=== PATIENT | male | born 1960 | race Caucasian/White ===

== ENCOUNTER 2017-07-04 05:46 | Day surgery (SDC) | payer MEDICARE, MEDICAID ==
[2017-07-01 10:26] VITALS: BMI 21.2
[2017-07-04] MEDS ORDERED: Bupivacaine HCl 0.5%/Epinephrine 1:200,000/PF 30 ml Vial ONE ×2 (06:32→11:59)
[2017-07-04] MEDS ORDERED: Lidocaine 2% 10 ML INJ ONE (06:32)
[2017-07-04] MEDS ORDERED: Bupivacaine/Epinephrine 0.25% 30 ML VIAL ONE (06:32)
[2017-07-04] MEDS ORDERED: Heparin 5,000 UNITS/ML VIAL ONE ×2 (06:32)
[2017-07-04] MEDS ORDERED: Protamine Sulfate 50 MG/5 ML VIAL ONE (06:32)
[2017-07-04] MEDS ORDERED: Fentanyl 100 MCG/2 ML VIAL ONE (06:34)
[2017-07-04] MEDS ORDERED: Midazolam HCl 2 mg/2 ml Vial ONE (06:34)
[2017-07-04] MEDS ORDERED: CEFAZOLIN/Water 2 GM/20 ML SYRINGE ONE (07:11)
--- NOTE | 2017-07-04 10:00 | OP ---
DATE OF PROCEDURE: 07/04/2017 PREOPERATIVE DIAGNOSES: Chronic kidney disease, approaching need for dialysis, diabetic callus left foot, TMA amputation stump. POSTOPERATIVE DIAGNOSES: Chronic kidney disease, approaching need for dialysis, diabetic callus left foot, TMA amputation stump. PROCEDURES: Left wrist Sweetie fistula, 4 mm coronary dilator outflow ligation of collaterals. Debri ash of diabetic callus left transmetatarsal amputation stump (skin, subcutaneous tissue, excisiona l resectional 10 blade scalpel). SURGEON: Gopi Galvin M.D. ANESTHESIA: Regional. TIVA. PROCEDURE: The patient was taken to the operating room where under left upper extremity regional ane sthesia, left upper extremity was prepared with ChloraPrep, draped in routine fashion. Incision made longitudinally in the skin and subcutaneous tissue and the left wrist between the cephalic vein and radial artery and cephalic vein and radial artery dissected free, divided branch between 4-0 silk tie s and clips. The cephalic vein on the hand side ligated with 3-0 silk tie and divided, spatulated an d interrogated with coronary dilators, passing coronary dilators from a 2 mm to a 4 mm coronary dilat or out the cephalic vein outflow. Radial artery dissected free, clamped proximally and distally afte r administering heparin 6000 units intravenously and adequate circulation time, longitudinal arteriot charlene made sharply and elongated with the Tovar scissors and cephalic vein likewise spatulated and end vein to side radial artery anastomosis created with continuous suture of 6-0 Prolene. At completion of the anastomosis, vascular clamps were released. There was excellent flow in the fistula. There w as a large branch that was divided between 4-0 silk ties and clips. Two small incisions was made mor e in the proximal forearm and collateral veins visible dissected free and clipped. Skin incisions ap proximated by approximating subcutaneous tissues with 3-0 Monocryl, skin with subdermal 4-0 Monocryl and DermaGlue applied. There was excellent Doppler signal in the cephalic vein outflow of the end of the procedure. The patient given 25 mg of protamine intravenously. Good hemostasis noted. Attention was then turned to the left foot, transmetatarsal amputation stump and the area was prepare d with alcohol pad and diabetic callus sharply excised with a 10 blade resectional excisional diabeti c callus skin. Underlying tissue was healthy. The patient tolerated the procedure well. Sterile dr esschasity applied.
[2017-07-04] MEDS ORDERED: Heparin 10,000 UNITS/ 10 ML VIAL ONE (14:01)
== END 2017-07-04 10:12 | disposition home or self-care (01) ==
LOC: SDC 05:46
PROVIDERS: ATTEND Specialist
PROC: 0JBR0ZZ Excision of Left Foot Subcutaneous Tissue and Fascia, Open Approach (ICD-10-PCS; principal; 2017-07-04)
PROC: 031C0ZF Bypass Left Radial Artery to Lower Arm Vein, Open Approach (ICD-10-PCS; 2017-07-04)
DX: I12.0 Hypertensive chronic kidney disease with stage 5 chronic kidney disease or end stage renal disease (principal); E11.22 Type 2 diabetes mellitus with diabetic chronic kidney disease; N18.6 End stage renal disease; E03.9 Hypothyroidism, unspecified; E11.628 Type 2 diabetes mellitus with other skin complications; E78.1 Pure hyperglyceridemia; Z91.19 Patient's noncompliance with other medical treatment and regimen; Z89.422 Acquired absence of other left toe(s); Z79.4 Long term (current) use of insulin; Z79.899 Other long term (current) drug therapy; Z98.890 Other specified postprocedural states
CPT/HCPCS: J0670; J1644; J2250; J2720; J3010

== ENCOUNTER 2017-09-14 15:10 | Inpatient (IN) | payer MEDICARE, MEDICAID ==
[2017-09-14 15:55] LABS: #Eosinphils 0.2 thou/uL (0.0-0.7); #Monocytes 0.5 thou/uL (0.11-0.59); %Basophils 0.4 % (0.0-1.0); %Eosinophils 3.1 % (0.0-10.0); %Neutrophils 77.5 % (42.0-75.0); Hemoglobin 8.6 g/dL (14.0-18.0); Mean Corpuscular HGB CONC 35.8 g/dL (32.0-36.0); Mean Corpuscular Hemoglobin 29.1 pg (27.0-31.0); Mean Corpuscular Volume 81.2 fL (78.0-98.0); Mean Platelet Volume 6.8 fL (7.4-10.4); Platelet Count 265 thou/uL (130-400); RBC Distribution Width 13.8 % (11.5-14.5); Red Blood Cell (RBC) Count 2.96 mill/uL (4.70-6.10); White Blood Cell (WBC) Count 7.7 thou/uL (4.8-10.8)
[2017-09-14 16:06] LABS: ALT (SGPT) 8 U/L (8-55); AST (SGOT) 8 U/L (5-34); Albumin 3.1 g/dL (3.5-5.0); Alkaline Phosphatase 51 U/L (40-150); Anion Gap 16 mmol/L (10-20); BUN (Urea Nitrogen) 62 mg/dL (8.4-25.7); Bilirubin, Total 0.3 mg/dL (0.2-1.2); Calc. Creatinine Clearance 0 mL/min (70-130); Calcium 7.5 mg/dL (7.8-10.44); Carbon Dioxide 18 mmol/L (22-29); Chloride 103 mmol/L (98-107); Estimated GFR-MDRD 8; Globulin 3.3 g/dL (2.4-3.5); Glucose 272 mg/dL (70-105); Potassium 5.3 mmol/L (3.5-5.1); Protein, Total 6.4 g/dL (6.0-8.3); Sodium 132 mmol/L (136-145)
[2017-09-14 16:11] LABS: CKMB 1.7 ng/mL (0-6.6); Troponin I 0.078 ng/mL (< 0.028)
[2017-09-14 16:14] LABS: Bilirubin Negative (Negative); Blood, Urine Small (Negative); Clarity CLEAR (Clear); Glucose, Urine (Dipstick) 500 mg/dL (Negative); Leukocyte Negative (Negative); Nitrite Negative (Negative); Protein, Urine (Dipstick) > or equal to 300 mg/dL (Neg-Trace); Specific Gravity, Urine 1.025 (1.002-1.036); Urobilinogen 0.2 mg/dL (0.2-1.0)
[2017-09-14 16:16] LABS: Bacteria/HPF None Seen HPF (None Seen); RBC/HPF 0-3 HPF (0-3)
[2017-09-14 16:18] LABS: Pathc Cast-AUWi Flag 2.61 (0-2.49)
[2017-09-14 16:25] LABS: Renal Epithelial None Seen HPF (0-3); Transitional Epithelial NONE SEEN HPF (0-3)
[2017-09-14 16:26] LABS: Hyaline Casts/LPF NONE SEEN LPF (0-3 Hyaline); Manual Microscopic Reviewed? No Path Casts Seen
[2017-09-14 16:37] LABS: Magnesium 1.6 mg/dL (1.6-2.6); Phosphorus 6.1 mg/dL (2.3-4.7)
--- NOTE | 2017-09-14 16:48 | RAD ---
PORTABLE CHEST: 09/14/17 HISTORY: Mental status change. Lungs are clear. Heart and mediastinum unremarkable. IMPRESSION: No acute findings. POS: [facility]
[2017-09-14] MEDS ORDERED: Ondansetron HCl/PF 4 MG/2 ML Vial IVP PRN (18:37)
[2017-09-14] MEDS ORDERED: Ondansetron ODT 4 MG TAB SL PRN (18:37)
[2017-09-14] MEDS ORDERED: Dextrose 5% in Water 1,000 ML IV PRN (19:19)
[2017-09-14] MEDS ORDERED: Dextrose 50% Abboject 50 ML SYRINGE SLOW IVP PRN (19:19)
[2017-09-14] MEDS ORDERED: HumaLOG 300 UNITS/3 ML VIAL SC PRN ×2 (19:19→19:58)
[2017-09-14] MEDS ORDERED: Acetaminophen 325 MG TAB PO PRN (19:19)
[2017-09-14 19:25] LABS: Troponin I 0.102 ng/mL (< 0.028)
--- NOTE | 2017-09-14 19:41 | PDOC.FPRHP ---
- History of Present Illness Chief Complaint: AMS, weakness History of Present Illness: Mr. Tafoya presented to the ED via ambulance with complaint of confusion/AMS and weakness. He reports his pulse was 28 in the ambulance. ER records say his pulse was 40-50s in the ambulance with pulse in the 60s recorded in the ER. 2.5 weeks ago patient had heat exhaustion and since then has "been going downhill" and has felt very weak. He could not walk or sit up well because he felt off balance. He vision has been foggy but it is normal at time of interview. Girlfriend reports he was confused, with slurred speech, and not thinking straight today. Has felt lightheaded but denies LOC or falls. Denies SOB, fever , chest pain. He has a R BKA and typically ambulates with cane but has had to use walker, or be pushed around while seated on the walker today. Pt has left foot wound which home health cares for. L arm fistula place and pt was schedule to meet with nephro this Tuesday to discuss if starting HD would be appropriate. FULL CODE: discussed with pt and girlfriend ED Course: basic labs, CXR, EKG - Allergies/Adverse Reactions Allergies Allergy/AdvReac Type Severity Reaction Status Date / Time No Known Allergies Allergy Verified 07/01/17 10:13 - Home Medications Medication Instructions Recorded Confirmed Type Insulin Detemir 100 UNITS/ML 60 units SC BID 03/20/14 09/14/17 History [Levemir] Gabapentin [Gabapentin] 50 mg PO BID 05/24/16 09/14/17 History Levothyroxine Sodium [Synthroid] 112 mcg PO DAILY 05/24/16 09/14/17 History Simvastatin [Zocor] 40 mg PO DAILY 05/24/16 09/14/17 History Aspirin [Aspir-Low] 1 tab PO DAILY 06/15/16 09/14/17 History Amlodipine Besylate [amLODIPine 1 tab PO DAILY 07/01/17 09/14/17 History Besylate] Carvedilol [Carvedilol] 1 tab PO DAILY 07/01/17 09/14/17 History Ferrous Gluconate [Fergon] 1 tab PO DAILY 07/01/17 09/14/17 History Gemfibrozil [Lopid] 1 tab PO BID 07/01/17 09/14/17 History - History PMHx:T2DM on insulin, HTN, PVD (Right BKA), anemia, ESRD, hypothyroid, HLD PSHx: R BKA, Left metatarsal amputations, L arm fistula (08/31/17) FHx:father-ESRD Social:Lives with girlfriend of 15 years. Smoker, 1 pack/week for 2-3 yrs, trying to quit. Denies alcohol or drug use. Has home health services for wound care and medications. - Review of Systems General: reports: fatigue. denies: fever/chills, weight/appetite/sleep changes , night sweats Eyes: reports: vision changes (foggy vision at times). denies: eye pain ENT: denies: nasal congestion, rhinorrhea Respiratory: denies: cough, shortness of breath Cardiovascular: denies: chest pain, palpitation, edema Gastrointestinal: denies: nausea, vomiting, diarrhea, constipation, abdominal pain Genitourinary: denies: dysuria, polyuria Skin: denies: rashes, lesions Musculoskeletal: denies: tenderness, swelling Neurological: reports: numbness (tingling in fingers), weakness. denies: syncope, seizure Psychological: denies: anxiety, depression - Vital signs BP: [165/86] HR: [65] RR: [17] Tmax: [98.4] Pox: [98]% on [RA] Wt: [70] - Physical Exam Constitutional: NAD, awake, alert and oriented HEENT: normocephalic and atraumatic, PERRLA, EOMI, MMM, oropharynx clear Neck: supple, trachea midline, no LAD, no thyromegaly Heart: RRR, normal S1/S2, pulses present, no edema Lungs: CTAB, good air movement, no rales/rhonchi, no wheezing Abdomen: soft, non-tender, bowel sounds present, no masses/distention Musculoskeletal: normal structure, normal tone, other (R BKA (healed), L foot wound) Neurological: no focal deficit, CN II-XII intact, other (UE and LE muscle strength 5/5) Skin: no rash/lesions, capillary refill <2 seconds Heme/Lymphatic: no unusual bruising or bleeding, no purpura Psychiatric: normal mood and affect, good judgment and insight FMR H&P: Results - Labs Result Diagrams: 09/14/17 15:33 09/14/17 21:38 Lab results: WBC 7.7 thou/uL (4.8-10.8) 09/14/17 15:33 Hgb 8.6 g/dL (14.0-18.0) L 09/14/17 15:33 Hct 24.1 % (42.0-52.0) L 09/14/17 15:33 MCV 81.2 fL (78.0-98.0) 09/14/17 15:33 Plt Count 265 thou/uL (130-400) 09/14/17 15:33 Neutrophils % 77.5 % (42.0-75.0) H 09/14/17 15:33 Sodium 132 mmol/L (136-145) L 09/14/17 15:33 Potassium 5.3 mmol/L (3.5-5.1) H 09/14/17 15:33 Chloride 103 mmol/L (98-107) 09/14/17 15:33 Carbon Dioxide 18 mmol/L (22-29) L 09/14/17 15:33 BUN 62 mg/dL (8.4-25.7) H 09/14/17 15:33 Creatinine 6.75 mg/dL (0.6-1.3) H 09/14/17 15:33 Glucose 272 mg/dL (70-105) H 09/14/17 15:33 Calcium 7.5 mg/dL (7.8-10.44) L 09/14/17 15:33 Total Bilirubin 0.3 mg/dL (0.2-1.2) 09/14/17 15:33 AST 8 U/L (5-34) 09/14/17 15:33 ALT 8 U/L (8-55) 09/14/17 15:33 Alkaline Phosphatase 51 U/L (40-150) 09/14/17 15:33 Creatine Kinase 108 U/L (30-200) 09/14/17 15:33 CK-MB (CK-2) 1.7 ng/mL (0-6.6) 09/14/17 15:33 Serum Total Protein 6.4 g/dL (6.0-8.3) 09/14/17 15:33 Albumin 3.1 g/dL (3.5-5.0) L 09/14/17 15:33 Lipase 50 U/L (8-78) 09/14/17 15:33 Urine Ketones Negative mg/dL (Negative) 09/14/17 16:00 Urine Blood Small (Negative) H 09/14/17 16:00 Urine Nitrite Negative (Negative) 09/14/17 16:00 Ur Leukocyte Esterase Negative (Negative) 09/14/17 16:00 Urine RBC 0-3 HPF (0-3) 09/14/17 16:00 Urine WBC 4-6 HPF (0-3) H 09/14/17 16:00 Ur Squamous Epith Cells 7-10 HPF (0-3) H 09/14/17 16:00 Urine Bacteria None Seen HPF (None Seen) 09/14/17 16:00 - EKG Interpretation EKG: NSR, rate 67, prolonged QT, normal pr interval, peaked T waves in precordial leads, QRS normal width - Radiology Interpretation Chest x-ray Status: report reviewed by me (No acute changes) FMR H&P: A/P - Plan ESRD -could be cause for patient's symptoms and metabolic abnormalities -recs from Dr. Holcomb on management -monitor BMP -Already has L arm fistula Bradycardia -pulse in the 60s since evaluated in ED -considering stable pulse, no current intervention needed. Ddx includes medications, hypothyroid, sick sinus syndrome -monitor on tele AMS/confusion -considering ESRD status could consider uremic encephalopathy -currently A&Ox3 Hyperkalemia -monitor BMP --> next draw at 21:30 -elevated T waves but QRS interval normal, currently on telemetry -appreciate Dr. Holcomb recs T2DM -accuchecks qachs -moderate sliding scale -lantus 60U BID -ordered A1c Elevated troponins -0.078 -considering ESRD status and no chest pain or other associated cardiac symptoms , no current concern for acute etiology. will continue to trend until decrease seen. Anemia, normocytic -likely due to kidney disease/ low EPO -will monitor CBC for change Hypothyroidism -takes synthroid at home -TSH 8.7, will order T4 Hypocalcemia -most likely d/t ESRD HLD -continue home simvastatin, gemfibrozil HTN -continue home carvedilol and amlodipine -will monitor pulse FMR H&P: Upper Level - Pertinent history 57 yr old male with history of ESRD not yet on dialysis presents for progressive fatigue, confusion, generalized weakness. His girlfriend is present and states this morning he didn't even know who he was. He could barely sit up or walk. Reports no LOC or falls. He notes this has been occurring for about 2 weeks since having "heat exhaustion." He reports feeling like he is in a fog. They called EMS and girlfriend notes they found his HR to be 28. He denies chest pain or headache. He states he is feeling better now and is able to interact for entirety of interview and answers questions appropriately. He denies fever. - Pertinent findings Gen: NAD, A & O to person, place, time, and situation, pleasant, interactive Cardiac: RRR, NO m/r/g Lungs: CTAB, no wheezes, rhales, rhonchi Abd: normal active BS, nontender to palpation Ext: Right BKA, left metatarsal amputation- left metatarsal callus formed but well healed no evidence for Infection EKG- NSR, rate 67 with peaked T waves in anterior leads. No ST elevation. QT prolonged. No QRS widening. Normal IA interval. - Plan Date/Time: 09/14/171929 I, [Netta Mejia], have evaluated this patient and agree with findings/plan as outlined by internal controls manager resident. Pertinent changes/additions are listed here. 57 yr old male with long standing chronic kidney disease presents for fatigue, AMS, and found to initially be bradycardic by EMS. Symptomatic bradycardia -apparent bradycardia to 28 with EMS although this is by patient history -ER documentation notes HR to 45-60 -HR in 60s in ER and on the floor -continue to monitor on tele -considerable causes include hypothyroidism, beta blockade, sick sinus syndrome , ESRD , hyperkalemia AMS consider Uremic Encephalopathy vs bradycardia although now resolved -currently A & O x 4 -pending consult by Dr. Romero, but likely a candidate to initiate dialysis -fistula in place for HD -monitor on tele Hyperkalemia -K+ 5.3 -Recheck at 2129 -Reported sinus bradycardia but now NSR with slight prolonged QT, cont to monitor on tele -pending consult by Dr. Romero and may require dialysis Hyperphosphatemia -needs phosphate binder -initiate tums -other mgmt. per nephro Chronic Normocytic anemia -likely 2/2 to CKD/DM -monitor H/H Hypothyroidism -mildly elevated TSH on current therapy -check free T4 -once dose is clarified, would recommend increasing levothyroxine DM II with hyperglycemia -continue levemir (lantus in hospital) -mod sliding scale insulin -check hgb A1C Elevated troponin -trend, although likely obscured by ESRD -no recent or current chest pain -No ST changes on EKG HLD -cont home meds HTN -cont home meds -cont coreg for now and monitor on tele but may need to consider holding or DC if thought to be cause of bradycardia Hypocalcemia -likely 2/2 CKD -initiate tums -monitor DVT ppx- TID heparin Diet- renal
[2017-09-14] MEDS ORDERED: Sodium Bicarbonate Tab 325 MG TAB PO SCH (21:00)
[2017-09-14] MEDS ORDERED: Heparin 5,000 UNITS/ML VIAL SC SCH (21:00)
[2017-09-14] MEDS: Insulin Glargine 60 UNITS in Pre-Filled Syringe 1 EACH SC SCH (21:41)
[2017-09-14 22:09] LABS: Anion Gap 15 mmol/L (10-20); BUN (Urea Nitrogen) 64 mg/dL (8.4-25.7); Calc. Creatinine Clearance 12 mL/min (70-130); Calcium 7.1 mg/dL (7.8-10.44); Carbon Dioxide 20 mmol/L (22-29); Chloride 102 mmol/L (98-107); Estimated GFR-MDRD 8; Glucose 250 mg/dL (70-105); Potassium 4.6 mmol/L (3.5-5.1); Sodium 132 mmol/L (136-145)
[2017-09-14 22:10] LABS: Troponin I 0.083 ng/mL (< 0.028)
--- NOTE | 2017-09-14 22:47 | PDOC.EVN ---
Event Note - Event Note Event Note: Pt seen and examined by me on 09/14/2017 @20:10. History, exam, assessment and plan reviewed and agree with resident's documentation. Briefly this is a 57 yo male with h/o type 2 DM, HTN, PVD, ESRD, and hypothyroidism who presented with an episode of generalized weakness. Significant other states that he appeared confused, was slurring his speech and was unable to stand up and walk. Denies any chest pain, SOB, N/V/D, URI symptoms, cough. Was diagnosed with heat exhaustion 2 weeks ago and states that he has not felt like himself since them. Does report occasional dizziness. Per EMS/ER records- his heart rate was noted to be in the 40-50s. PMH/PSH/Meds/All reviewed and agree with resident's documentation. Afebrile P 65 BP 165/87 RR 16 98% on RA. Exam repeated by me and agree with resident's findings. Labs: H/H=8.6/24.1, Na= 132, K+= 5.3, BUN/Cr = 62/6.75m Gluc= 272 EKG= NSR, prolonged QT. A/P: 1) AMS/Near symcope -Differential including dysrthymia, uremia, hypothyroidism - Admit to telemetry - Cardiac monitors 2) ESRD - pt had fistula placed 2 weeks ago - Nephrology consulted; await recommendations 3) Mild hyperkalemia - recheck lytes later tonight 4) Hypothyroidism - will check T3 and T4 - adjust meds as indicated
--- NOTE | 2017-09-15 00:25 | CON ---
DATE OF CONSULTATION: 09/14/2017 REASON FOR CONSULTATION: Stage 5 chronic kidney disease and hyperkalemia. HISTORY OF PRESENT ILLNESS: This is a very pleasant 57-year-old gentleman who presented to the [facility] with weakness and not feeling well. The patient has some altered mentation. His pulse was in th e 30s to 40s. After hydration, the patient was awake, alert, and cleared. The patient denies chest pain, orthopnea or PND. The patient has a wound on his left leg. The patient denies any nausea, vom iting or chest pain. PAST MEDICAL HISTORY: Significant for diabetes mellitus, hypertension, peripheral vascular disease, right BKA, anemia, AV fistula. SOCIAL HISTORY: No alcohol or drugs. FAMILY HISTORY: Negative for ESRD. ALLERGIES: Reviewed. HOME MEDICATIONS: List reviewed. REVIEW OF SYSTEMS: A 15-point review of systems was performed and negative except for positives note d above. GENERAL: Weakness- HEAD: Headache- NECK: No swelling or lumps. NOSE: No epistaxis or discharge. EYES: No diplopia or pain. RESPIRATORY: Dyspnea- CARDIOVASCULAR: Chest pain- GASTROINTESTINAL: Nausea- /INJECTION MOLDING MACHINE SETTER: Hematuria- MUSCULOSKELETAL: No joint pain. NEUROPSYCHIATIC SYSTEMS: No suicidal ideation. No ideation. SKIN: Denies any rash or ulcer. CONSTITUTIONAL: No fever or chills. PHYSICAL EXAMINATION: GENERAL: Patient is awake, alert. VITAL SIGNS: Afebrile, pulse 65, breathing 16, blood pressure 162/79. HEAD/NECK: Normocephalic. Atraumatic. EYES: EOMI. No deformity. EARS: Clear. No ulcers. NOSE: Intact. No lesions. MOUTH: Clear. No discharge. THROAT: Clear. No exudate. LUNGS: Clear. No crackles. CARDIAC: S1, S2. No rub. ABDOMEN: Benign. BS+. GENITALIA/RECTUM: Praasd absent. BACK/EXTREMITIES: Edema 0+ Ulcer- NEUROLOGICAL: Alert and motor intact. SKIN: Rash- Bruise- LYMPHATICS: Edema- Ulcer- LABORATORY DATA: Hemoglobin 9.2, potassium 5.3, bicarbonate ____. ASSESSMENT AND RECOMMENDATIONS: 1. Acute kidney injury with chronic kidney disease, most likely due to progressive chronic kidney di sease. We will follow the patient's renal function closely. If the renal function does not improve, we will consider renal replacement therapy. Creatinine has increased from 4.4-6.75. 2. Hyperkalemia. Give Kayexalate and bicarbonate due to metabolic acidosis. Start bicarbonate.
[2017-09-15 04:54] LABS: #Eosinphils 0.3 thou/uL (0.0-0.7); #Lymphocytes 1.8 thou/uL (1.20-3.40); #Monocytes 0.6 thou/uL (0.11-0.59); #Neutrophils 4.1 thou/uL (1.40-6.50); %Basophils 0.6 % (0.0-1.0); %Eosinophils 3.7 % (0.0-10.0); %Lymphocytes 26.7 % (21.0-51.0); %Monocytes 8.4 % (0.0-10.0); %Neutrophils 60.6 % (42.0-75.0); Hemoglobin 9.1 g/dL (14.0-18.0); Mean Corpuscular HGB CONC 34.1 g/dL (32.0-36.0); Mean Corpuscular Hemoglobin 27.8 pg (27.0-31.0); Mean Corpuscular Volume 81.5 fL (78.0-98.0); Mean Platelet Volume 6.9 fL (7.4-10.4); Platelet Count 252 thou/uL (130-400); Red Blood Cell (RBC) Count 3.27 mill/uL (4.70-6.10); White Blood Cell (WBC) Count 6.8 thou/uL (4.8-10.8)
[2017-09-15 05:00] LABS: Hemoglobin A1c 8.1 % (4.0-6.0)
[2017-09-15 05:14] LABS: Anion Gap 17 mmol/L (10-20); BUN (Urea Nitrogen) 63 mg/dL (8.4-25.7); Calc. Creatinine Clearance 12 mL/min (70-130); Calcium 7.6 mg/dL (7.8-10.44); Carbon Dioxide 21 mmol/L (22-29); Chloride 103 mmol/L (98-107); Estimated GFR-MDRD 9; Glucose 91 mg/dL (70-105); Potassium 3.8 mmol/L (3.5-5.1); Sodium 137 mmol/L (136-145)
--- NOTE | 2017-09-15 05:42 | PDOC.FM ---
- Subjective Subjective: Pt reports feeling much better today, he has no new complaints, denies chest pain, SOB, weakness. Significant other is at bedside and reports improvement in mental status to 7/10. - Objective Vital Signs & Weight: Vital Signs (12 hours) Temp Pulse Resp BP BP Pulse Ox 09/15/17 04:00 98.7 F 69 18 169/83 H 99 09/14/17 20:11 97.2 F L 65 18 100 09/14/17 18:40 97.2 F L 65 18 163/79 H 100 Weight Weight 69.655 kg Result Diagrams: 09/15/17 03:54 09/15/17 03:54 <Carrington Paniagua - Last Filed: 09/15/17 09:15> - Objective Vital Signs & Weight: Vital Signs (12 hours) Temp Pulse Resp BP Pulse Ox 09/15/17 11:26 97.8 F 73 14 186/81 H 98 09/15/17 08:45 70 09/15/17 08:00 98 F 70 16 99 09/15/17 07:26 98 F 70 16 196/92 H 99 Weight Admit Weight 69.655 kg Weight 69.989 kg I&O: 09/14/17 09/15/17 09/16/17 06:59 06:59 06:59 Intake Total 480 Output Total 900 Balance -420 Result Diagrams: 09/15/17 03:54 09/15/17 03:54 <Kindra Manjarrez - Last Filed: 09/15/17 17:06> Phys Exam - Physical Examination Constitutional: NAD Respiratory: no wheezing, no rales, no rhonchi, wheezing present, clear to auscultation bilateral Cardiovascular: RRR, no significant murmur, no rub Gastrointestinal: soft, non-tender, positive bowel sounds Musculoskeletal: no edema, pulses present Psychiatric: normal affect, A&O x 3 <Carrington Paniagua - Last Filed: 09/15/17 09:15> Dx/Plan (1) Encephalopathy Code(s): G93.40 - ENCEPHALOPATHY, UNSPECIFIED Status: Acute (2) End stage chronic kidney disease Code(s): N18.6 - END STAGE RENAL DISEASE Status: Acute (3) Bradycardia Code(s): R00.1 - BRADYCARDIA, UNSPECIFIED Status: Acute (4) Hyperkalemia Code(s): E87.5 - HYPERKALEMIA Status: Acute (5) Hypothyroid Code(s): E03.9 - HYPOTHYROIDISM, UNSPECIFIED Status: Acute - Plan Plan: Encephalopathy -considering ESRD status could consider uremic encephalopathy -BUN 63 -currently A&Ox3 ESRD -could be cause for patient's symptoms and metabolic abnormalities -recs from Dr. Holcomb on management -monitor BMP -Already has L arm fistula Bradycardia -pulse in the 60s since evaluated in ED -considering stable pulse, no current intervention needed. Ddx includes medications, hypothyroid, sick sinus syndrome -monitor on tele Hyperkalemia -monitor BMP --> last draw: 3.8 -elevated T waves but QRS interval normal, currently on telemetry -appreciate Dr. Holcomb recs T2DM -accuchecks qachs -moderate sliding scale -lantus 60U BID -ordered A1c Elevated troponins -0.078 -considering ESRD status and no chest pain or other associated cardiac symptoms , no current concern for acute etiology. will continue to trend until decrease seen. Anemia, normocytic -likely due to kidney disease/ low EPO -will monitor CBC for change Hypothyroidism -takes synthroid at home, increased to 125 mcg -TSH 8.7, T4 .64 Hypocalcemia -most likely d/t ESRD HLD -continue home simvastatin, gemfibrozil HTN -continue home carvedilol and amlodipine -will monitor pulse Dispo: Pt is improving overnight, continue to monitor CMP, follow up with Dr. Romero on starting dialysis <Carrington Paniagua - Last Filed: 09/15/17 09:15> Attending Addendum - Attending Addendum Date/Time: 09/15/17 1101 I personally evaluated the patient and discussed the management with Dr. Paniagua. I agree with the History, Examination, Assessment and Plan documented above with any addition or exceptions noted below. The patient has been seen by Dr. Romero who recommends starting bicarb. He is ok with the patient going home and will have f/u with Dr. Romero as an outpt in 1 week to likely start dialysis. <Kindra Manjarrez - Last Filed: 09/15/17 17:06>
[2017-09-15] MEDS ORDERED: Levothyroxine Sodium 112 MCG TAB PO SCH (06:00)
[2017-09-15] MEDS ORDERED: Levothyroxine Sodium 125 MCG TAB PO SCH (06:00)
[2017-09-15 06:14] LABS: CKMB 1.3 ng/mL (0-6.6); Troponin I 0.074 ng/mL (< 0.028)
[2017-09-15] MEDS ORDERED: Gemfibrozil 600 MG TAB PO SCH (07:30)
[2017-09-15 08:38] VITALS: BMI 27.3
[2017-09-15] MEDS: Insulin Glargine 60 UNITS in Pre-Filled Syringe 1 EACH SC SCH (08:45)
[2017-09-15] MEDS ORDERED: Amlodipine 10 MG TAB PO SCH (09:00)
[2017-09-15] MEDS ORDERED: Ferrous Gluconate 324 MG TAB PO SCH (09:00)
[2017-09-15] MEDS ORDERED: Aspirin 81 mg Enteric Coated Tablet PO SCH (09:00)
[2017-09-15] MEDS ORDERED: Carvedilol 6.25 MG TAB PO SCH (09:00)
[2017-09-15] MEDS ORDERED: Atorvastatin Calcium 20 MG TAB PO SCH ×2 (09:00→21:00)
[2017-09-15 11:26] VITALS: BP 186/81; TEMP 97.8
--- NOTE | 2017-09-15 11:54 | PRG ---
DATE OF SERVICE: 09/15/2017 SUBJECTIVE: This 57-year-old male being seen for stage 5 chronic kidney disease. The patient denies any nausea, vomiting or chest pain. The patient is ____. PHYSICAL EXAMINATION: GENERAL: Patient is awake, alert. VITAL SIGNS: Afebrile, pulse 73, breathing 16, blood pressure 196/93. OBJECTIVE: See above. Awake, alert, in no acute distress. GENERAL APPEARANCE AND MENTAL STATUS: Fair. HEAD/NECK: Normocephalic. Atraumatic. EYES: EOMI. No deformity. EARS: Clear. No ulcers. NOSE: Intact. No lesions. MOUTH: Clear. No discharge. THROAT: Clear. No exudate. LUNGS: Clear. No crackles. CARDIAC: S1, S2. No rub. ABDOMEN: Benign. BS+. GENITALIA/RECTUM: Prasad absent. BACK/EXTREMITIES: Edema 0+ Ulcer- NEUROLOGICAL: Alert and motor intact. SKIN: Rash- Bruise- LYMPHATICS: Edema- Ulcer- LABORATORY: Hemoglobin 9.1, potassium is 3.8, bicarbonate 31. ASSESSMENT AND RECOMMENDATIONS: 1. Stage 5 chronic kidney disease, no urgent indication for dialysis. 2. Hypertension, stable. 3. Anemia, stable. 4. Medication based on glomerular filtration rate are appropriate. We will let the patient's AV fis pacheco mature, once fistula matures we can start dialysis in 3 weeks.
[2017-09-15] MEDS ORDERED: Sodium Bicarbonate Tab 325 MG TAB PO SCH (15:00)
--- NOTE | 2017-09-16 00:46 | DIS-2 ---
DATE OF ADMISSION: 09/14/2017 DATE OF DISCHARGE: 09/15/2017 RESIDENT: Carrington Paniagua DO ADMITTING ATTENDING: Augusta Escobedo MD DISCHARGE ATTENDING: Kindra Manjarrez MD CONSULTATIONS: Dr. Romero (Nephrology). PROCEDURES: None. PRIMARY DIAGNOSIS: Encephalopathy. SECONDARY DIAGNOSES: 1. End-stage renal disease. 2. Bradycardia. 3. Hyperkalemia. 4. Type 2 diabetes mellitus. 5. Elevated troponins. 6. Anemia, normocytic. 7. Hypothyroidism. 8. Hypocalcemia. 9. Hyperlipidemia. 10. Hypertension. DISCHARGE MEDICATIONS: Insulin detemir 100 units per mL SC b.i.d., simvastatin 10 mg tab p.o. daily, gabapentin 100 mg capsule p.o. b.i.d., levothyroxine sodium 75 mcg tab p.o. daily, aspirin 81 mg tab p.o. daily, carvedilol 6.25 mg tab p.o. daily, gemfibrozil 600 mg tab p.o. b.i.d., amlodipine besyla te 10 mg tab p.o. daily, ferrous gluconate 324 mg tab p.o. daily, sodium bicarbonate 325 mg tab p.o. t.i.d. HISTORY OF PRESENT ILLNESS AND HOSPITAL COURSE: Mr. Tafoya presented to the ED via ambulance with complaint of confusions, altered mental status, and weakness. His reported pulse in the ambulance wa s 28. During his stay in the ER, he has been in the 60s for his pulse. He has been having weakness and confusion for the past week since he had a heat stroke or heat exhaustion as described by his gir lfriend 1 week ago. She reports that his consciousness has been worse. He has had weakness and he h as felt lightheaded. He has a past medical history significant for a right BKA and uses a walker for that. In the ER, he received basic labs, a chest x-ray, and EKG; all showing nothing significant fo r cardiac or neurological deficits. His labs did confirm his elevated BUN, which is related to his e nd-stage renal disease. During his hospital stay, we continued to follow his labs for his end-stage renal disease and consulted Dr. Romero who has been seeing him in clinic. Dr. Romero recommended that we add sodium bicarbonate to his medication regimen and discharge him to follow up closely in clinic wi Dr. Romero. DISPOSITION: Stable. DISCHARGE INSTRUCTIONS: 1. Location: Home. 2. Diet: Renal and diabetic. 3. Activity: As tolerated. 4. Followup: He is to follow up in the clinic in his primary care; nurse practitioner [facility] clinic in 7 days, and in Dr. Romero's Nephrology clinic in 7 days.
== END 2017-09-15 14:15 | disposition home or self-care (01) | DRG 70 ==
LOC: ERS 15:10 → 2NO 18:24
PROVIDERS: ADMIT Family Medicine; ATTEND Family Medicine
DX: G93.40 Encephalopathy, unspecified (principal); N18.6 End stage renal disease; I12.0 Hypertensive chronic kidney disease with stage 5 chronic kidney disease or end stage renal disease; N17.9 Acute kidney failure, unspecified; E87.2 Acidosis; E11.22 Type 2 diabetes mellitus with diabetic chronic kidney disease; R00.1 Bradycardia, unspecified; E87.5 Hyperkalemia; D64.9 Anemia, unspecified; E03.9 Hypothyroidism, unspecified; E83.51 Hypocalcemia; E78.5 Hyperlipidemia, unspecified; Z89.511 Acquired absence of right leg below knee; E11.51 Type 2 diabetes mellitus with diabetic peripheral angiopathy without gangrene
CPT/HCPCS: 36415; 36416; 71045; 80048; 80053; 81003; 81015; 82553; 83036; 83690; 83735; 84100; 84439; 84443; 84484; 85025; 93005

== ENCOUNTER 2017-09-15 19:46 | Inpatient (IN) | payer MEDICARE, MEDICAID ==
[2017-09-15 21:11] LABS: #Eosinphils 0.2 thou/uL (0.0-0.7); #Lymphocytes 1.1 thou/uL (1.20-3.40); #Monocytes 0.5 thou/uL (0.11-0.59); #Neutrophils 6.9 thou/uL (1.40-6.50); %Basophils 0.4 % (0.0-1.0); %Eosinophils 2.8 % (0.0-10.0); %Lymphocytes 12.2 % (21.0-51.0); %Monocytes 5.5 % (0.0-10.0); %Neutrophils 79.2 % (42.0-75.0); Hemoglobin 10.6 g/dL (14.0-18.0); Mean Corpuscular HGB CONC 36.7 g/dL (32.0-36.0); Mean Corpuscular Hemoglobin 29.9 pg (27.0-31.0); Mean Corpuscular Volume 81.4 fL (78.0-98.0); Mean Platelet Volume 7.1 fL (7.4-10.4); Platelet Count 289 thou/uL (130-400); RBC Distribution Width 13.9 % (11.5-14.5); Red Blood Cell (RBC) Count 3.55 mill/uL (4.70-6.10); White Blood Cell (WBC) Count 8.7 thou/uL (4.8-10.8)
[2017-09-15 21:23] LABS: ALT (SGPT) 10 U/L (8-55); AST (SGOT) 15 U/L (5-34); Albumin 3.3 g/dL (3.5-5.0); Alkaline Phosphatase 64 U/L (40-150); Anion Gap 18 mmol/L (10-20); BUN (Urea Nitrogen) 66 mg/dL (8.4-25.7); Bilirubin, Total 0.3 mg/dL (0.2-1.2); Calc. Creatinine Clearance 0 mL/min (70-130); Calcium 7.5 mg/dL (7.8-10.44); Carbon Dioxide 20 mmol/L (22-29); Chloride 101 mmol/L (98-107); Estimated GFR-MDRD 9; Globulin 4.1 g/dL (2.4-3.5); Glucose 146 mg/dL (70-105); Potassium 3.9 mmol/L (3.5-5.1); Protein, Total 7.4 g/dL (6.0-8.3); Sodium 135 mmol/L (136-145)
[2017-09-15 21:28] LABS: Bilirubin Negative (Negative); Blood, Urine Trace (Negative); Clarity CLEAR (Clear); Glucose, Urine (Dipstick) 250 mg/dL (Negative); Leukocyte Negative (Negative); Nitrite Negative (Negative); Protein, Urine (Dipstick) > or equal to 300 mg/dL (Neg-Trace); Specific Gravity, Urine 1.016 (1.002-1.036); Urobilinogen 0.2 mg/dL (0.2-1.0); pH, Urine 6.5 (5.0-9.0)
[2017-09-15 21:30] LABS: Bacteria/HPF None Seen HPF (None Seen); Hyaline Casts/LPF 0-3 HYALINE CAST LPF (0-3 Hyaline); Pathc Cast-AUWi Flag 0.43 (0-2.49); RBC/HPF None Seen HPF (0-3); WBC/HPF 0-3 HPF (0-3)
--- NOTE | 2017-09-15 21:56 | CT ---
CT HEAD WITHOUT CONTRAST: 09/15/17 Multiple axial tomograms obtained through the head without IV enhancement. INDICATIONS: Mental status change. There are no comparison studies. FINDINGS: Ventricles have normal size and position. There are moderate chronic ischemic white matter changes. There is evidence of numerous lacunar infarcts seen in the basal ganglia regions and deep white matte r of both cerebral hemispheres. These are more numerous in the left cerebral hemisphere. Several of t hese focal lacunar infarcts are age indeterminate. There is a subtle area of low attenuation in the l eft basal ganglia near the posterior limb of the internal capsule and adjacent to the lateral margin of the thalamus which could represent an acute or subacute lacunar infarct. Likewise, there are some lucencies in the deep white matter which could be acute or subacute. There is no evidence of acute cortical infarct. There is no evidence of mass or hemorrhage. IMPRESSION: Prominent chronic ischemic changes for patient's age. There are evidence of old lacunar infarcts as d escribed above. Some of these are age indeterminate. If there are new neurologic deficits, recommend MRI of brain to assess for restricted diffusion. POS: [facility]
[2017-09-15 23:33] LABS: Troponin I 0.065 ng/mL (< 0.028)
[2017-09-15] MEDS ORDERED: Dextrose 5% in Water 1,000 ML IV PRN (23:38)
[2017-09-15] MEDS ORDERED: Dextrose 50% Abboject 50 ML SYRINGE SLOW IVP PRN (23:38)
--- NOTE | 2017-09-15 23:38 | PDOC.FPRHP ---
- History of Present Illness Chief Complaint: AMS History of Present Illness: Mr. Tafoya is a 57 y/o M that presented to the ER this evening with AMS, confusion, weakness. He was discharged earlier today. He arrived home at 14:00 and was resting in bed. At 17:00 he woke up in sweats. He remembers feeling confused at that time and then remembers his house being full of neighbors and EMS. Girlfriend reports that he was confused, did not know where he was, had "bad speech", and was cold, shaky, and sweaty. He was weak and unable to walk. She said this episode was the same thing that happened resulting in his previous admission. ED Course: CT brain, labs, blood culture, UA, EKG, Rectal temp 94.1, bearhugger - Allergies/Adverse Reactions Allergies Allergy/AdvReac Type Severity Reaction Status Date / Time No Known Allergies Allergy Verified 09/16/17 00:30 - Home Medications Medication Instructions Recorded Confirmed Type Insulin Detemir 100 UNITS/ML 60 units SC BID 03/20/14 09/16/17 History [Levemir] Levothyroxine Sodium [Synthroid] 112 mcg PO DAILY 05/24/16 09/16/17 History Simvastatin [Zocor] 40 mg PO DAILY 05/24/16 09/16/17 History Aspirin [Aspir-Low] 1 tab PO DAILY 06/15/16 09/16/17 History Amlodipine Besylate [amLODIPine 1 tab PO DAILY 07/01/17 09/16/17 History Besylate] Carvedilol 1 tab PO DAILY 07/01/17 09/16/17 History Ferrous Gluconate [Fergon] 1 tab PO DAILY 07/01/17 09/16/17 History Gemfibrozil [Lopid] 1 tab PO BID 07/01/17 09/16/17 History Sodium Bicarbonate [Bicarbonate, 325 mg PO TID #21 tab 09/15/17 09/16/17 Rx Sodium] - History PMHx:T2DM on insulin, HTN, PVD (Right BKA), anemia, ESRD, hypothyroid, HLD PSHx: R BKA, Left metatarsal amputations, L arm fistula (08/31/17) FHx:father-ESRD Social:Lives with girlfriend of 15 years. Smoker, 1 pack/week for 2-3 yrs, trying to quit. Denies alcohol or drug use. Has home health services for wound care and medications. - Review of Systems General: reports: fatigue. denies: fever/chills Eyes: denies: eye pain, vision changes ENT: denies: nasal congestion, rhinorrhea Respiratory: denies: cough, shortness of breath Cardiovascular: denies: chest pain, palpitation, edema Gastrointestinal: denies: nausea, vomiting, diarrhea, constipation, abdominal pain Genitourinary: denies: incontinence, dysuria Skin: denies: rashes, lesions Musculoskeletal: denies: tenderness, swelling Neurological: reports: numbness (tingling in hands, chronic), weakness. denies : syncope Psychological: denies: anxiety, depression - Vital signs BP: [155/73] HR: [64] RR: [16] Tmax: [97.5] Pox: [97]% on [RA] Wt: [71 kg] - Physical Exam Constitutional: NAD, awake, alert and oriented (A&Ox3) HEENT: normocephalic and atraumatic, PERRLA, EOMI, conjunctiva clear, grossly normal vision, TM's clear and intact, grossly normal hearing, MMM, oropharynx clear Neck: supple, trachea midline Heart: RRR, normal S1/S2, no murmurs/rubs/gallops, no edema Lungs: CTAB, no respiratory distress, no rales/rhonchi, no wheezing Abdomen: soft, non-tender, bowel sounds present Musculoskeletal: normal structure, normal tone, other (R BKA, L foot metatarsal amputation, minor wound) Neurological: no focal deficit, CN II-XII intact, normal sensation, other (5/5 muscle strength UE and LE bilaterally, normal heel to thomas,) Skin: no rash/lesions, capillary refill <2 seconds Heme/Lymphatic: no unusual bruising or bleeding Psychiatric: normal mood and affect, good judgment and insight FMR H&P: Results - Labs Result Diagrams: 09/16/17 04:34 09/16/17 04:33 Lab results: WBC 8.7 thou/uL (4.8-10.8) 09/15/17 20:52 Hgb 10.6 g/dL (14.0-18.0) L 09/15/17 20:52 Hct 28.9 % (42.0-52.0) L 09/15/17 20:52 MCV 81.4 fL (78.0-98.0) 09/15/17 20:52 Plt Count 289 thou/uL (130-400) 09/15/17 20:52 Neutrophils % 79.2 % (42.0-75.0) H 09/15/17 20:52 Sodium 135 mmol/L (136-145) L 09/15/17 20:52 Potassium 3.9 mmol/L (3.5-5.1) 09/15/17 20:52 Chloride 101 mmol/L (98-107) 09/15/17 20:52 Carbon Dioxide 20 mmol/L (22-29) L 09/15/17 20:52 BUN 66 mg/dL (8.4-25.7) H 09/15/17 20:52 Creatinine 6.33 mg/dL (0.6-1.3) H 09/15/17 20:52 Glucose 146 mg/dL (70-105) H 09/15/17 20:52 Calcium 7.5 mg/dL (7.8-10.44) L 09/15/17 20:52 Total Bilirubin 0.3 mg/dL (0.2-1.2) 09/15/17 20:52 AST 15 U/L (5-34) 09/15/17 20:52 ALT 10 U/L (8-55) 09/15/17 20:52 Alkaline Phosphatase 64 U/L (40-150) 09/15/17 20:52 Serum Total Protein 7.4 g/dL (6.0-8.3) 09/15/17 20:52 Albumin 3.3 g/dL (3.5-5.0) L 09/15/17 20:52 Urine Ketones Negative mg/dL (Negative) 09/15/17 21:15 Urine Blood Trace (Negative) H 09/15/17 21:15 Urine Nitrite Negative (Negative) 09/15/17 21:15 Ur Leukocyte Esterase Negative (Negative) 09/15/17 21:15 Urine RBC None Seen HPF (0-3) 09/15/17 21:15 Urine WBC 0-3 HPF (0-3) 09/15/17 21:15 Ur Squamous Epith Cells 4-6 HPF (0-3) H 09/15/17 21:15 Urine Bacteria None Seen HPF (None Seen) 09/15/17 21:15 - EKG Interpretation EKG: sinus bradycardia (pulse 57), elevated T waves, no acute changes - Radiology Interpretation CT scan - head Status: report reviewed by me (Chronic ischemic changes, old lacunar infarcts, some may be age indeterminant) FMR H&P: A/P - Problem List (1) Encephalopathy Current Visit: Yes Status: Acute Code(s): G93.40 - ENCEPHALOPATHY, UNSPECIFIED (2) Hypothermia Current Visit: Yes Status: Acute Code(s): T68.XXXA - HYPOTHERMIA, INITIAL ENCOUNTER (3) End stage chronic kidney disease Current Visit: Yes Status: Acute Code(s): N18.6 - END STAGE RENAL DISEASE (4) Diabetes mellitus type 2 Current Visit: Yes Status: Chronic Code(s): E11.9 - TYPE 2 DIABETES MELLITUS WITHOUT COMPLICATIONS (5) Hypothyroid Current Visit: Yes Status: Acute Code(s): E03.9 - HYPOTHYROIDISM, UNSPECIFIED (6) S/P transmetatarsal amputation of foot Current Visit: Yes Status: Acute Code(s): Z89.439 - ACQUIRED ABSENCE OF UNSPECIFIED FOOT (7) Amputation of right lower extremity below knee Current Visit: Yes Status: Acute Code(s): Z89.511 - ACQUIRED ABSENCE OF RIGHT LEG BELOW KNEE - Plan 57 y/o M presenting with AMS and hypothermia. Encephalopathy -Ddx includes, metabolic cause 2/2 ESRD, TIA, hypoglycemia, cardiac causes -concern for possible TIA, however CT brain showed only chronic changes. Will continue to monitor to rule out. Could consider MRI in am. -BUN 66 -currently A&Ox3 Hypothermia, resolved -rectal temp 94.1 in ER -had bearhugger and temp increased to 97.5 in ER ESRD -Dr. Holcomb's recs from earlier today include starting HD in 3 weeks, once L AV fistula has matured -monitor BMP. stable compared to previous admit -continue sodium bicarb Bradycardia -history of possible symptomatic bradycardia -pulse in the 60s since arrival to the ER -considering stable pulse, no current intervention needed -monitor on tele -consider cardiology consult in am T2DM -accuchecks qachs -moderate sliding scale -lantus 60U BID -last A1c 09/15 of 8.1 Anemia, normocytic -stable, likely due to kidney disease/ low EPO -will monitor CBC for change Hypothyroidism -takes synthroid at home, increased 09/15 to 125 mcg -TSH 8.7, T4 .64 Hypocalcemia -most likely d/t ESRD HLD -continue home simvastatin, gemfibrozil HTN -continue home carvedilol and amlodipine -will monitor pulse FMR H&P: Upper Level - Pertinent history 57 yr old male with history of ESRD not yet on dialysis presents for altered mental status. He was discharged from the hospital earlier today after workup for bradycardia. He was not found to be bradycardic during his hospitalization. His girlfriend is present and states after they got home this afternoon, he took a nap. She woke him around 5:30 pm and he was confused, having difficulty speaking, and had a left facial droop. He also was sweating at that time. This resolved in route to the ER per girlfriend. This episode is nearly the same as what resulted in his last hospitalization. Girlfriend states he has had intermittent episodes of confusion for 2 weeks. These last 2 seems to be more prominent. At this time, he is back to baseline. He denies chest pain, shortness of breath, headache, abdominal pain. He is nearing need for HD but has recently been placed on oral sodium bicarb with hope of allowing his fistula to mature. - Pertinent findings Gen: NAD, A & O to person, place, time, and situation, pleasant, interactive Cardiac: RRR, NO m/r/g Lungs: CTAB, no wheezes, rhales, rhonchi Abd: normal active BS, nontender to palpation Ext: Right BKA, left metatarsal amputation- left metatarsal callus formed but well healed no evidence for Infection Neuro: cranial nerves 2-12 intact, bue/ble 5/5, no dydiadikokineshia, normal finger to nose, normal sensation EKG: sinus bradycardia, no ST changes - Plan Date/Time: 09/15/17 [id number] I, [Netta Mejia], have evaluated this patient and agree with findings/plan as outlined by it intern resident. Pertinent changes/additions are listed here. Encephalopathy likley 2/2 metabolic derangements however Diff Dx includes TIA, bradycardia, SSS -now improved -CT head with chronic ischemic changes -MRI brain in AM -electrolytes at baseline -monitor on stroke and continuous heart monitoring -no sign of infection (afebrile although initially low temp, no WBC) hypothermia -initial rectal temp 94.1, resolved with bearhugger in ER -no tachycardia, no WBC, no tachypnea -cont to monitor Bradycardia highly suspect sick sinus syndrome but cannot exclude metabolic causes related to ESRD vs hypothyroidism -continuous heart monitor -recommend cardiology vs EP consult -may consider ECHO Chronic normocytic anemia -stable -likely 2/2 CKD/DM -monitor H/H hypothyroidism -recently elevated TSH with low T4 -Synthroid increased to 125 mcg DM II -cont home levemir -mod sliding scale insulin HLD -cont home meds HTN -Cont home meds DVT ppx- tid Heparin Diet- renal and Consistent carb Attending Addendum - Attending Addendum Date/Time: 09/16/17 2023 I personally evaluated the patient and discussed the management with Dr. Melgar. I agree with the History, Examination, Assessment and Plan documented above with any addition or exceptions noted below. The patient was admitted after an episode of altered mental status and sweating. Per girlfriend, he had slurred speech and heart rate was slow. He felt better by the time he arrived to the ER. He was placed in obs for possible stroke work-up. MRI will be ordered. Monitor pulse on telemetry. Pt with ESRD not yet on dialysis. Creatinine is minimally improved.
[2017-09-15] MEDS ORDERED: Ondansetron HCl/PF 4 MG/2 ML Vial IVP PRN (23:46)
[2017-09-15] MEDS ORDERED: Acetaminophen 325 MG TAB PO PRN (23:46)
[2017-09-15] MEDS ORDERED: Ondansetron ODT 4 MG TAB SL PRN (23:46)
[2017-09-16 00:29] VITALS: BMI 18.8
[2017-09-16 02:14] LABS: Troponin I 0.048 ng/mL (< 0.028)
[2017-09-16 05:11] LABS: #Eosinphils 0.3 thou/uL (0.0-0.7); #Lymphocytes 1.6 thou/uL (1.20-3.40); #Monocytes 0.5 thou/uL (0.11-0.59); #Neutrophils 4.3 thou/uL (1.40-6.50); %Basophils 0.5 % (0.0-1.0); %Eosinophils 4.7 % (0.0-10.0); %Lymphocytes 23.8 % (21.0-51.0); %Monocytes 7.7 % (0.0-10.0); %Neutrophils 63.3 % (42.0-75.0); Hemoglobin 9.6 g/dL (14.0-18.0); Mean Corpuscular HGB CONC 35.9 g/dL (32.0-36.0); Mean Corpuscular Hemoglobin 28.9 pg (27.0-31.0); Mean Corpuscular Volume 80.4 fL (78.0-98.0); Mean Platelet Volume 6.9 fL (7.4-10.4); Platelet Count 261 thou/uL (130-400); RBC Distribution Width 13.6 % (11.5-14.5); Red Blood Cell (RBC) Count 3.33 mill/uL (4.70-6.10); White Blood Cell (WBC) Count 6.7 thou/uL (4.8-10.8)
[2017-09-16 05:30] LABS: Anion Gap 16 mmol/L (10-20); BUN (Urea Nitrogen) 65 mg/dL (8.4-25.7); Calc. Creatinine Clearance 13 mL/min (70-130); Calcium 7.7 mg/dL (7.8-10.44); Carbon Dioxide 21 mmol/L (22-29); Chloride 104 mmol/L (98-107); Estimated GFR-MDRD 9; Glucose 100 mg/dL (70-105); Potassium 3.2 mmol/L (3.5-5.1); Sodium 138 mmol/L (136-145)
--- NOTE | 2017-09-16 05:55 | PDOC.FM ---
- Subjective Subjective: Pt reports that he feels well today, no new symptoms overnight. He denies any confusion, chills, or night sweats recently. His girlfriend reports his mental status has improved and has not noticed any focal weakness. - Objective Vital Signs & Weight: Vital Signs (12 hours) Temp Pulse Resp BP Pulse Ox 09/16/17 04:00 97.8 F 69 18 177/86 H 99 09/15/17 23:23 98 F 70 16 160/77 H 97 Weight Weight 68.356 kg I&O: 09/14/17 09/15/17 09/16/17 06:59 06:59 06:59 Intake Total 350 Balance 350 Result Diagrams: 09/16/17 04:34 09/16/17 04:33 <aCrrington Paniagua - Last Filed: 09/16/17 09:10> - Objective Vital Signs & Weight: Vital Signs (12 hours) Temp Pulse Resp BP Pulse Ox 09/16/17 15:48 98.2 F 75 16 161/82 H 97 Result Diagrams: 09/16/17 04:34 09/16/17 04:33 <Kindra Manjarrez - Last Filed: 09/16/17 16:25> Phys Exam - Physical Examination Constitutional: NAD Respiratory: no wheezing, clear to auscultation bilateral Cardiovascular: RRR, no significant murmur, no rub Gastrointestinal: soft, non-tender Musculoskeletal: no edema, pulses present Neurological: non-focal, normal sensation, moves all 4 limbs Psychiatric: normal affect <Carrington Paniagua - Last Filed: 09/16/17 09:10> Dx/Plan (1) Encephalopathy Code(s): G93.40 - ENCEPHALOPATHY, UNSPECIFIED Status: Acute (2) Hypothermia Code(s): T68.XXXA - HYPOTHERMIA, INITIAL ENCOUNTER Status: Acute (3) End stage chronic kidney disease Code(s): N18.6 - END STAGE RENAL DISEASE Status: Acute (4) Bradycardia Code(s): R00.1 - BRADYCARDIA, UNSPECIFIED Status: Acute (5) Hypothyroid Code(s): E03.9 - HYPOTHYROIDISM, UNSPECIFIED Status: Acute (6) Diabetes mellitus type 2 Code(s): E11.9 - TYPE 2 DIABETES MELLITUS WITHOUT COMPLICATIONS Status: Chronic - Plan Plan: 1. Encephalopathy likley 2/2 metabolic derangements however Diff Dx includes TIA , bradycardia, SSS -now improved -CT head with chronic ischemic changes -MRI brain in AM -electrolytes at baseline -monitor on stroke and continuous heart monitoring -no sign of infection (afebrile although initially low temp, no WBC) negative UA -blood cultures pending 2. hypothermia -initial rectal temp 94.1, resolved with bearhugger in ER -no tachycardia, no WBC, no tachypnea -cont to monitor 3. ESRD -Dr. Holcomb's recs from earlier today include starting HD in 3 weeks, once L AV fistula has matured -monitor BMP. stable compared to previous admit -continue sodium bicarb 4. Bradycardia reported at home -monitor on telemetry -HR in the 60s during hospital stay 5. Chronic normocytic anemia -stable -likely 2/2 CKD/DM -monitor H/H 6. hypothyroidism -recently elevated TSH with low T4 -Synthroid increased to 125 mcg 7. DM II -cont home levemir -mod sliding scale insulin 8. HLD -cont home meds 9. HTN -Cont home meds DVT ppx- tid Heparin Diet- renal and Consistent carb Dispo: Patient feels well today, he returned home for a few hours before having symptoms again, MRI today to rule out neurologic cause. Will continue to monitor on tele today <Carrington Paniagua - Last Filed: 09/16/17 09:10> Attending Addendum - Attending Addendum Date/Time: 09/16/17 1651 I personally evaluated the patient and discussed the management with Dr. Paniagua. I agree with the History, Examination, Assessment and Plan documented above with any addition or exceptions noted below. The patient has an MRI this morning and results are pending to check for stroke. MRI showed lacunar infarct. Will consult stroke team and neurology. Change to inpatient status. He has had no episodes of bradycardia in the 20's as reported at home. Will continue to monitor on telemetry. <Kindra Manjarrez - Last Filed: 09/16/17 16:25>
[2017-09-16] MEDS: Levothyroxine Sodium 125 MCG TAB PO SCH (06:36)
[2017-09-16] MEDS: Gemfibrozil 600 MG TAB PO SCH ×2 (06:36→15:30)
[2017-09-16] MEDS ORDERED: Potassium Chloride 20 MEQ TAB PO SCH (07:00)
[2017-09-16] MEDS ORDERED: INSULIN DETEMIR SC SCH (09:00)
[2017-09-16] MEDS ORDERED: Insulin Glargine 60 UNITS in Pre-Filled Syringe 1 EACH SC SCH (09:00)
[2017-09-16] MEDS: Sodium Bicarbonate Tab 325 MG TAB PO SCH ×3 (09:16→21:48)
[2017-09-16] MEDS: Ferrous Gluconate 324 MG TAB PO SCH (09:19)
[2017-09-16] MEDS: Amlodipine 10 MG TAB PO SCH (09:19)
[2017-09-16] MEDS: Carvedilol 6.25 MG TAB PO SCH (09:19)
[2017-09-16] MEDS: Aspirin 81 mg Enteric Coated Tablet PO SCH (09:20)
[2017-09-16] MEDS: Heparin 5,000 UNITS/ML VIAL SC SCH ×3 (09:20→21:48)
--- NOTE | 2017-09-16 11:14 | MRI ---
MRI OF BRAIN WITHOUT IV CONTRAST: Technique: Multiplanar, multisequence MRI images were obtained of the brain. Indications: Mental status change. Encephalopathy. Concern for TIA. Correlation: CT brain 09-15-17 which showed numerous lacunar infarcts, some of which were age indetermi robbin. FINDINGS: There are moderate to severe chronic ischemic white matter changes. FLAIR sequence also shows numerou s lacunar infarcts in the deep white matter and the basal ganglia regions as noted on CT. These are b dorian delineated with MRI. Diffusion images does show a focus of restricted diffusion in the superior left basal ganglia region posteriorly and superiorly through the periventricular region. This is consistent with an acute lacun ar infarct in this area which measures up to 1.0 cm diameter. No other restricted diffusion seen. No mass, edema, or hemorrhage. The intracranial internal carotid arteries, proximal cerebral arteries and basilar arteries show flow voids. Paranasal sinuses and mastoids are clear. IMPRESSION: 1. Evidence of acute lacunar infarct on the left as described above. 2. Moderate chronic ischemic white matter changes with evidence of numerous old lacunar infarcts. POS: PATY
[2017-09-16] MEDS: HumaLOG 300 UNITS/3 ML VIAL SC PRN ×2 (11:21→21:50)
[2017-09-16] MEDS ORDERED: Insulin Glargine 30 UNITS in Pre-Filled Syringe 1 EACH SC SCH (12:39)
[2017-09-16] MEDS ORDERED: Lisinopril 10 MG TAB PO SCH (12:45)
[2017-09-16 13:04] LABS: HBSAB Concentration 0.31 mIU/mL; HBSAg Index 0.21 S/CO (0-0.99); Hep B Core Total Ab Non-Reactive (NonReactive); Hep B Core Total Index 0.03 S/CO (0-0.79); Hep B Surf AB Non-Reactive (NonReactive); Hep B Surf Ag Non-Reactive S/CO (NonReactive); Hep C IgG Ab Non-Reactive (NonReactive); Hep C Index 0.13 S/CO (0-0.79)
--- NOTE | 2017-09-16 14:53 | PDOC.EVN ---
Event Note - Event Note Event Note: Acute 1 cm L lacunar infarct seen on Brain MRI. Neurology and stroke team consulted. Changed to inpatient status for further management.
--- NOTE | 2017-09-16 18:20 | CON ---
DATE OF CONSULTATION: 09/16/2017 CHIEF COMPLAINT: Acute stroke. HISTORY OF PRESENT ILLNESS: The patient and and family members gave me a history. The patient was here and discharged yesterday and he came back to the hospital with acute onset of he felt cold, clammy, disoriented, could not recognize his family members and they could not tell what he was trying to say and in association with that he felt like his stump on the right leg was kind of weak because his prosthesis was dragging for the last couple of days and he also had blood sugar of 88 and bradycardia at that time and by the time EMS arrived per family, total episode lasted about 30-45 minutes per and symptoms completely resolved. The patient's normal blood sugars are running between 140s to 160s and he has had uncontrolled blood glucose and also hypertension. Patient has had a complete resolution of his symptoms. thinks he also might have noticed a facial droop on the left side during these events and they brought him back to the hospital. They are quite concerned that he would be discharged and keep telling me he does not want to go home yet. PREVIOUS MEDICAL HISTORY: Hypothyroidism, hyperlipidemia, and diabetes which is poorly controlled, hypertension and his most recent hemoglobin A1c is 8, but states it has been at 10 or 11 in the past. Previous history of hypertension and renal disease. 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 SOCIAL HISTORY: Lives with his . Nonsmoker, no alcohol. FAMILY HISTORY: Significant for stroke in his father who at age 79. MEDICATIONS AT HOME: He takes carvedilol 6.25 mg 2 per day, ferrous gluconate 325 mg per day, simvastatin 40 mg per day, amlodipine 5 mg 2 per day, levothyroxine 100 mcg per day, and sodium bicarbonate 325 mg per day. REVIEW OF SYSTEMS: PULMONARY: Normal. CARDIAC: Negative for any chest pain or palpitations, but positive for slow heart rate. ENT: Normal. No hearing problems or swallowing problems or vision problems or throat problems. CONSTITUTIONAL: Positive for intermittent mental status changes on and off. MUSCULOSKELETAL: Negative for any muscle pain. DERMATOLOGIC: Negative for any rash. GI: Negative for any nausea, vomiting or abdominal pain. GENITOURINARY: Negative for dysuria or hematuria. NEUROLOGIC: Positive for weakness on the right side with facial droop along with leg weakness on along with altered mental status which lasted 30-45 minutes. ALLERGIES: The patient has no known drug allergies. LABORATORY DATA AND IMAGING DATA: White count 6.7, hemoglobin 9.6, hematocrit 26.8, and platelets 261. Chemistry; sodium 138, potassium 3.2, chloride 104, bicarbonate 21, BUN 65, creatinine 6.18, glucose 68 in the morning at 6:30 in the morning, 194 at 09:30, at 10:58 a.m., it was 231. Troponin I 0.048, alkaline phosphatase 64, ALT 10, AST 15 and hepatitis B negative. Urine positive for glucose and high protein level. His creatinine is 6.18 and BUN 65. MRI of the brain showed a lacunar infarct which is acute in the left basal ganglia region posteriorly and superiorly through the periventricular infarct measuring up to 1 cm diameter. He also has moderate chronic ischemic white matter changes with numerous old lacunar infarcts. PHYSICAL EXAMINATION: VITAL SIGNS: Temperature 98, pulse 68, respiratory rate 16, blood pressure 156/ 83. GENERAL APPEARANCE: The patient is very pleasant. Normal conversation and has right [id number] amputation, left toe amputations. CHEST: Clear vesicular breathing. CARDIOVASCULAR: S1, S2 heard, no murmurs. ABDOMEN: Soft, nontender, no organomegaly noted. Carotids are clear. NEUROLOGICAL: Higher intellectual functions. Normal orientation to time, place , person and appropriate conversation. Cranial nerves: Normal extraocular movements. No facial asymmetry, normal sensation of face bilaterally. Tongue midline, no atrophy noted. Normal elevation of palate. Normal hearing to finger rub bilaterally and normal reaction to pupils and symmetric at 2 mm bilaterally. Motor examination: Bulk normal, tone normal, strength 5/5 in upper extremities and also in lower extremities. Iliopsoas strength was normal on the right leg and left leg iliopsoas, hamstrings and quadriceps were normal. In both upper extremities, deltoid, biceps, triceps, wrist extension and flexion, finger extension and flexion were normal. Deep tendon reflexes were absent throughout. Sensory: Normal touch, pinprick, proprioception, vibration in upper extremities. Normal vibration in lower extremities and normal touch in lower extremities. Cerebellar: Normal [id number]. [id number] cannot be tested. Gait not tested. IMPRESSION: Patient is a 57-year-old man with history of acute event with altered mental status along with him being cold and clammy and he has cold and clammy sensation and no evidence of any seizure-like activity. The patient developed right-sided weakness and all his neurological symptoms were transient and lasted 35-45 minutes per family and usual blood sugars are in the 140s to 160s and yesterday his blood sugar was 88 and his current examination is normal except for prior evidence of below knee amputation on the right leg and toe amputations. Clinical diagnosis is most consistent with acute ischemic event with left lacunar infarct which occurred yesterday and he has high risk factors for stroke including hypercholesterolemia, uncontrolled diabetes and hypertension. At this time, even though he is back to baseline, we will need to complete his workup including cardiac workup. RECOMMENDATIONS: Please perform echocardiogram and ultrasound scan of the carotids and we will keep him on aspirin, but increase the dose 325 mg per day and I will follow up patient with you. Please educate patient about the risk factors for stroke, which I have already discussed risk factors for stroke and he will need further help with diabetes education as well. Please call me if you have any further questions. ROSE
[2017-09-16 20:17] LABS: Cardiac Risk 11.7 (Less than 4.5); Cholesterol 258 mg/dl (< 200 Desired); HDL Cholesterol 22 mg/dL (>60 Neg Risk)
[2017-09-16 20:25] LABS: Triglycerides 1495 mg/dL (Less than 150)
[2017-09-16] MEDS ORDERED: Atorvastatin Calcium 20 MG TAB PO SCH (21:00)
[2017-09-17 05:05] LABS: #Basophils 0.1 thou/uL (0.0-0.2); #Eosinphils 0.3 thou/uL (0.0-0.7); #Lymphocytes 1.9 thou/uL (1.20-3.40); #Monocytes 0.6 thou/uL (0.11-0.59); #Neutrophils 4.1 thou/uL (1.40-6.50); %Basophils 0.7 % (0.0-1.0); %Eosinophils 4.4 % (0.0-10.0); %Lymphocytes 27.2 % (21.0-51.0); %Monocytes 8.6 % (0.0-10.0); Hemoglobin 9.2 g/dL (14.0-18.0); Mean Corpuscular HGB CONC 35.1 g/dL (32.0-36.0); Mean Corpuscular Hemoglobin 28.7 pg (27.0-31.0); Mean Corpuscular Volume 81.6 fL (78.0-98.0); Mean Platelet Volume 7.3 fL (7.4-10.4); Platelet Count 239 thou/uL (130-400); RBC Distribution Width 14.1 % (11.5-14.5); Red Blood Cell (RBC) Count 3.21 mill/uL (4.70-6.10)
[2017-09-17 05:29] LABS: Anion Gap 18 mmol/L (10-20); BUN (Urea Nitrogen) 64 mg/dL (8.4-25.7); Calc. Creatinine Clearance 13 mL/min (70-130); Calcium 7.3 mg/dL (7.8-10.44); Carbon Dioxide 16 mmol/L (22-29); Chloride 105 mmol/L (98-107); Estimated GFR-MDRD 10; Glucose 70 mg/dL (70-105); Potassium 4.1 mmol/L (3.5-5.1); Sodium 135 mmol/L (136-145)
[2017-09-17] MEDS: Levothyroxine Sodium 125 MCG TAB PO SCH (05:48)
--- NOTE | 2017-09-17 06:12 | PDOC.FM ---
- Subjective Subjective: 57 yo male seen this AM. Patient denies any unilateral weakness, AMS, vision changes, headaches, paresthesias, or chest pain. He states that he had a good night overall. No complaints. - Objective Vital Signs & Weight: Vital Signs (12 hours) Temp Pulse Resp BP BP Pulse Ox 09/17/17 03:20 98.1 F 73 20 141/71 H 99 09/16/17 23:51 98.5 F 72 18 139/75 99 09/16/17 20:00 98.4 F 73 20 99 09/16/17 19:50 98.4 F 73 20 155/80 H 99 I&O: 09/15/17 09/16/17 09/17/17 06:59 06:59 06:59 Output Total 400 Balance -400 Result Diagrams: 09/17/17 04:29 09/17/17 04:29 <Jermain Umanzor - Last Filed: 09/17/17 07:42> - Objective Vital Signs & Weight: Vital Signs (12 hours) Temp Pulse Resp BP BP Pulse Ox 09/17/17 08:42 63 131/67 09/17/17 07:52 98.1 F 63 14 131/67 98 09/17/17 03:20 98.1 F 73 20 141/71 H 99 09/16/17 23:51 98.5 F 72 18 139/75 99 I&O: 09/16/17 09/17/17 09/18/17 06:59 06:59 06:59 Intake Total 240 Output Total 400 Balance -400 240 Result Diagrams: 09/17/17 04:29 09/17/17 04:29 <Kindra Manjarrez - Last Filed: 09/17/17 09:58> Phys Exam - Physical Examination Constitutional: NAD HEENT: PERRLA, moist MMs Neck: no nodes Respiratory: no wheezing, clear to auscultation bilateral Cardiovascular: RRR, no significant murmur Gastrointestinal: soft, non-tender, no distention, positive bowel sounds Musculoskeletal: no edema Right BKA and partial amputation of left foot Neurological: non-focal, moves all 4 limbs Lymphatic: no nodes Psychiatric: normal affect, A&O x 3 Skin: no rash <Jermain Umanzor - Last Filed: 09/17/17 07:42> Dx/Plan (1) Lacunar infarction Code(s): I63.9 - CEREBRAL INFARCTION, UNSPECIFIED Status: Acute (2) End stage chronic kidney disease Code(s): N18.6 - END STAGE RENAL DISEASE Status: Acute (3) Diabetes mellitus type 2 Code(s): E11.9 - TYPE 2 DIABETES MELLITUS WITHOUT COMPLICATIONS Status: Chronic (4) Hypothermia Code(s): T68.XXXA - HYPOTHERMIA, INITIAL ENCOUNTER Status: Acute (5) Hypothyroid Code(s): E03.9 - HYPOTHYROIDISM, UNSPECIFIED Status: Acute (6) Bradycardia Code(s): R00.1 - BRADYCARDIA, UNSPECIFIED Status: Acute (7) Chronic anemia Code(s): D64.9 - ANEMIA, UNSPECIFIED Status: Acute (8) Amputation of right lower extremity below knee Code(s): Z89.511 - ACQUIRED ABSENCE OF RIGHT LEG BELOW KNEE Status: Acute (9) HTN (hypertension) Code(s): I10 - ESSENTIAL (PRIMARY) HYPERTENSION Status: Acute (10) HLD (hyperlipidemia) Code(s): E78.5 - HYPERLIPIDEMIA, UNSPECIFIED Status: Acute - Plan Plan: 1. Lacunar infarct - MRI brain shows new infarct - electrolytes at baseline - monitor on stroke and continuous heart monitoring - ECHO ordered - Carotid doppler ordered 2. hypothermia - initial rectal temp 94.1, resolved with bearhugger in ER - no tachycardia, no WBC, no tachypnea - cont to monitor 3. ESRD - Dr. Holcomb's recs from earlier today include starting HD in 3 weeks, once L AV fistula has matured - monitor BMP. stable compared to previous admit - continue sodium bicarb 4. Bradycardia reported at home - monitor on telemetry - HR in the 70s overnight 5. Chronic normocytic anemia - stable - likely 2/2 CKD/DM - monitor H/H 6. hypothyroidism - recently elevated TSH with low T4 - Synthroid increased to 125 mcg - Recommend outpatient follow up 7. DM II - Initially decreased insulin. Will increase insulin, but not to full home regimen. - mod sliding scale insulin - accuchecks 8. HLD - Increased Statin to high intensity. 9. HTN - Cont home meds Dispo: Stable, will await Neurology recommendations as well as Carotid Doppler and ECHO results. <Jermain Umanzor - Last Filed: 09/17/17 07:42> (1) Encephalopathy Code(s): G93.40 - ENCEPHALOPATHY, UNSPECIFIED Status: Acute (2) Hypothermia Code(s): T68.XXXA - HYPOTHERMIA, INITIAL ENCOUNTER Status: Acute (3) End stage chronic kidney disease Code(s): N18.6 - END STAGE RENAL DISEASE Status: Acute (4) Diabetes mellitus type 2 Code(s): E11.9 - TYPE 2 DIABETES MELLITUS WITHOUT COMPLICATIONS Status: Chronic (5) Hypothyroid Code(s): E03.9 - HYPOTHYROIDISM, UNSPECIFIED Status: Acute (6) S/P transmetatarsal amputation of foot Code(s): Z89.439 - ACQUIRED ABSENCE OF UNSPECIFIED FOOT Status: Acute (7) Amputation of right lower extremity below knee Code(s): Z89.511 - ACQUIRED ABSENCE OF RIGHT LEG BELOW KNEE Status: Acute <Kindra Manjarrez - Last Filed: 09/17/17 09:58> Attending Addendum - Attending Addendum Date/Time: 09/17/17954 I personally evaluated the patient and discussed the management with Dr. Umanzor. I agree with the History, Examination, Assessment and Plan documented above with any addition or exceptions noted below. Patient with lacunar infarct on MRI. Echo and carotid doppler are pending. Appreciate neuro recs. No episodes of severe bradycardia overnight. Adjusting insulin. <Kindra Manjarrez - Last Filed: 09/17/17 09:58>
[2017-09-17 06:15] LABS: Cholesterol 260 mg/dl (< 200 Desired); HDL Cholesterol 29 mg/dL (>60 Neg Risk)
[2017-09-17 06:22] LABS: Triglycerides 1062 mg/dL (Less than 150)
[2017-09-17] MEDS: Gemfibrozil 600 MG TAB PO SCH ×2 (07:41→17:37)
[2017-09-17] MEDS: Carvedilol 6.25 MG TAB PO SCH (08:42)
[2017-09-17] MEDS: Sodium Bicarbonate Tab 325 MG TAB PO SCH ×3 (08:42→21:10)
[2017-09-17] MEDS: Amlodipine 10 MG TAB PO SCH (08:42)
[2017-09-17] MEDS: Ferrous Gluconate 324 MG TAB PO SCH (08:42)
[2017-09-17] MEDS: Aspirin 81 mg Enteric Coated Tablet PO SCH (08:42)
[2017-09-17] MEDS: Lisinopril 10 MG TAB PO SCH (08:42)
[2017-09-17] MEDS: Heparin 5,000 UNITS/ML VIAL SC SCH ×3 (08:43→21:10)
[2017-09-17] MEDS: Insulin Glargine 45 UNITS in Pre-Filled Syringe 1 EACH SC SCH ×2 (09:10→21:11)
[2017-09-17] MEDS: HumaLOG 300 UNITS/3 ML VIAL SC PRN (11:49)
--- NOTE | 2017-09-17 11:55 | ULT ---
CAROTID ULTRASOUND WITH LANDRY SCALE AND DOPPLER DUPLEX COLOR FLOW IMAGING SPECTRAL ANALYSIS PERFORMED: CLINICAL INDICATION: Acute left lacunar infract. FINDINGS: There is moderate atherosclerotic calcification of the carotid arteries. PEAK SYSTOLIC VELOCITY (CM/S): Right CCA 71 Left CCA 92 Right ICA 253 Left ICA 165 There is antegrade flow within the visualized bilateral vertebral arteries. IMPRESSION: 1. Severe (70-99) stenosis of the right internal carotid artery. 2. Moderate (50-69) stenosis of the left internal carotid artery. POS: PATY
--- NOTE | 2017-09-17 12:07 | PRG ---
DATE OF SERVICE: 09/16/2017 SUBJECTIVE: This 57-year-old gentleman being seen for end-stage renal disease. The patient denies a ny nausea, vomiting, or chest pain. PHYSICAL EXAMINATION: GENERAL: Patient is awake, alert. VITAL SIGNS: Afebrile, pulse 63, breathing 16, blood pressure was 139/75. HEAD/NECK: Normocephalic. Atraumatic. EYES: EOMI. No deformity. EARS: Clear. No ulcers. NOSE: Intact. No lesions. MOUTH: Clear. No discharge. THROAT: Clear. No exudate. LUNGS: Clear. No crackles. CARDIAC: S1, S2. No rub. ABDOMEN: Benign. BS+. GENITALIA/RECTUM: Prasad absent. BACK/EXTREMITIES: Edema 0+ Ulcer- NEUROLOGICAL: Alert and motor intact. SKIN: Rash- Bruise- LYMPHATICS: Edema- Ulcer- LABORATORY DATA: Show creatinine 6.1, bicarbonate 21. ASSESSMENT AND RECOMMENDATIONS: 1. Stage 6 chronic kidney disease, plan hemodialysis. 2. Hypertension, stable. 3. Anemia, stable. 4. Hyperkalemia, plan dialysis.
--- NOTE | 2017-09-17 12:14 | PRG ---
DATE OF SERVICE: 09/17/2017 SUBJECTIVE: A 57-year-old gentleman being seen for end-stage renal disease. The patient denies any nausea, vomiting or chest pain. PHYSICAL EXAMINATION: GENERAL: Patient is awake, alert. VITAL SIGNS: Afebrile, pulse 70, breathing 16, blood pressure 141/71. HEAD/NECK: Normocephalic. Atraumatic. EYES: EOMI. No deformity. EARS: Clear. No ulcers. NOSE: Intact. No lesions. MOUTH: Clear. No discharge. THROAT: Clear. No exudate. LUNGS: Clear. No crackles. CARDIAC: S1, S2. No rub. ABDOMEN: Benign. BS+. GENITALIA/RECTUM: Prasad absent. BACK/EXTREMITIES: Edema 0+ Ulcer- NEUROLOGICAL: Alert and motor intact. SKIN: Rash- Bruise- LYMPHATICS: Edema- Ulcer- LABORATORY DATA: Show bicarbonate 16. ASSESSMENT AND RECOMMENDATIONS: 1. Stage 6 chronic kidney disease. We will plan dialysis. 2. Uremia, plan dialysis. 3. Anemia, stable. 4. Medication based on glomerular filtration rate are appropriate.
--- NOTE | 2017-09-17 12:31 | PRG ---
DATE OF SERVICE: 09/17/2017 CHIEF COMPLAINT: CVA. INTERVAL HISTORY: The patient has been doing better today and he also has had no further neurologica l symptoms and his symptoms have resolved. There are other issues as far as diabetes and hypothermia , all of which are being addressed by primary physician. He feels like he is back to normal today. Workup so far, carotid Doppler study report is pending and his brain MRI did show evidence of acute l acunar infarct on the left side. LABORATORY DATA: His laboratory workup today, white count 7.0, hemoglobin 9.2, hematocrit 26.2, plat elets 239. Chemistries: Sodium 135, potassium 4.1, chloride 105, bicarbonate 16, BUN 64, creatinine 6.10, triglycerides 1062, cholesterol 260, HDL 29, glucose is 176. PHYSICAL EXAMINATION: VITAL SIGNS: Blood pressure 143/66, pulse 58, temperature 98.1. NEUROLOGIC: Higher intellectual functions are normal. Cranial nerves: Normal extraocular movements . No facial asymmetry. Motor exam: Bulk normal, tone normal, strength is 5/5 in upper extremities in all muscle groups and lower extremity proximal cause of groups were tested and they were within no rmal limits. Gait not tested. IMPRESSION: Patient is a 57-year-old man with diabetes and other chronic medical issues. He comes t o the hospital with neurological symptoms and he has an episode of disorientation, but also right-mayra ed weakness. His MRI showed left lacunar infarct consistent with his risk factors of hypertension, d iabetes, and renal impairment. RECOMMENDATIONS: Continue aspirin for stroke prophylaxis. Echocardiogram is pending. I will follow up with you.
--- NOTE | 2017-09-17 13:54 | PRG ---
Duplicate DATE OF SERVICE: 09/16/2017 NEPHROLOGY PROGRESS NOTE SUBJECTIVE: A 57-year-old gentleman being seen for end-stage renal disease. Patient denies any nausea, vomiting or chest pain. PHYSICAL EXAMINATION: GENERAL: Patient is awake, alert. VITAL SIGNS: Afebrile, pulse 62, breathing 16, blood pressure 131/67. HEAD/NECK: Normocephalic. Atraumatic. EYES: EOMI. No deformity. EARS: Clear. No ulcers. NOSE: Intact. No lesions. MOUTH: Clear. No discharge. THROAT: Clear. No exudate. LUNGS: Clear. No crackles. CARDIAC: S1, S2. No rub. ABDOMEN: Benign. BS+. GENITALIA/RECTUM: Prasad absent. BACK/EXTREMITIES: Edema 0+ Ulcer- NEUROLOGICAL: Alert and motor intact. SKIN: Rash- Bruise- LYMPHATICS: Edema- Ulcer- LABORATORY DATA: Show hemoglobin 9.6, creatinine 6.1, bicarbonate 21, BUN 64. ASSESSMENT AND PLAN: 1. Stage 6 chronic kidney disease. We will plan dialysis. 2. Hypertension, stable. 3. Metabolic acidosis, plan dialysis. 4. Hyperkalemia, stable. MTDD
--- NOTE | 2017-09-17 16:30 | CON ---
DATE OF CONSULTATION: 09/17/2017 HISTORY OF PRESENT ILLNESS: This is a 57-year-old gentleman who has had 2 recent admissions for alte red mental status. The symptoms have been nonspecific with confusion, generalized weakness, inabilit y to verbalize. The patient's girlfriend does not state that the patient's speech was slurred or arlen ppropriate, just there was lack of any ability to speak. Patient had a carotid ultrasound this admis john with velocities of 253 cm per second on the right suggesting greater than 70% stenosis. PAST MEDICAL HISTORY: Includes type 2 diabetes mellitus as well as hypertension. The patient has en d-stage renal disease, having had an AV fistula placed in his left wrist about 2 months ago and is sc heduled to begin dialysis at some time in the near future with a most recent creatinine of about 6. PAST SURGICAL HISTORY: Otherwise his past surgical history is significant for below the knee amputat ion of his right leg and a transmetatarsal amputation of his left foot. He has also had some sort of angiography by Dr. Russ with possible stenting of lower extremity vessels. SOCIAL HISTORY: He smokes about a pack of cigarettes a week. He lives with his girlfriend of 15 yea rs. PHYSICAL EXAMINATION: GENERAL: He is an alert, cooperative gentleman, very pleasant, in no distress. VITAL SIGNS: Blood pressure 160, heart rate 65. NECK: I did not appreciate any carotid bruits. LUNGS: Clear to auscultation. CARDIAC: Distant heart sounds, no murmurs. ABDOMEN: Firm, nontender, no aneurysm. EXTREMITIES: He has palpable femoral and popliteal pulses bilaterally as well as a left posterior ti bial pulse and an absent left dorsalis pedis pulse. He has diminished muscle mass in his legs and no edema. He has Sweetie AV fistula in his left wrist with faintly palpable thrill and minimal maturati on of the vein on the left arm. ASSESSMENT AND PLAN: I would recommend obtaining a CT angiogram of his carotid arteries to better de lineate the severity of the stenosis. I would consider them asymptomatic carotid disease at this adelina e as his presenting symptoms on both occasions were nonlateralizing. This CT angiogram can be arrang ed as an outpatient through my office if needed, but I would not obtain angiography until he is insti tuted hemodialysis for a couple of weeks to allow this process to be underway without difficulty.
[2017-09-17] MEDS: Atorvastatin Calcium 40 MG TAB PO SCH (21:10)
[2017-09-18] MEDS ORDERED: Acetaminophen 500 MG TAB PO PRN (03:19)
[2017-09-18 04:28] LABS: #Eosinphils 0.1 thou/uL (0.0-0.7); #Lymphocytes 1.3 thou/uL (1.20-3.40); #Monocytes 0.4 thou/uL (0.11-0.59); #Neutrophils 3.7 thou/uL (1.40-6.50); %Basophils 0.3 % (0.0-1.0); %Eosinophils 2.5 % (0.0-10.0); %Lymphocytes 22.6 % (21.0-51.0); %Monocytes 6.7 % (0.0-10.0); %Neutrophils 67.8 % (42.0-75.0); Hemoglobin 9.3 g/dL (14.0-18.0); Mean Corpuscular HGB CONC 35.6 g/dL (32.0-36.0); Mean Corpuscular Hemoglobin 29.5 pg (27.0-31.0); Mean Corpuscular Volume 82.9 fL (78.0-98.0); Mean Platelet Volume 7.2 fL (7.4-10.4); Platelet Count 227 thou/uL (130-400); RBC Distribution Width 14.1 % (11.5-14.5); Red Blood Cell (RBC) Count 3.14 mill/uL (4.70-6.10); White Blood Cell (WBC) Count 5.5 thou/uL (4.8-10.8)
[2017-09-18 04:45] LABS: Anion Gap 13 mmol/L (10-20); BUN (Urea Nitrogen) 39 mg/dL (8.4-25.7); Calc. Creatinine Clearance 17 mL/min (70-130); Calcium 7.6 mg/dL (7.8-10.44); Carbon Dioxide 26 mmol/L (22-29); Chloride 100 mmol/L (98-107); Estimated GFR-MDRD 13; Glucose 271 mg/dL (70-105); Potassium 3.9 mmol/L (3.5-5.1); Sodium 135 mmol/L (136-145)
[2017-09-18] MEDS: Levothyroxine Sodium 125 MCG TAB PO SCH (05:09)
[2017-09-18] MEDS: HumaLOG 300 UNITS/3 ML VIAL SC PRN ×2 (05:15→16:45)
--- NOTE | 2017-09-18 05:40 | PDOC.FM ---
- Subjective Subjective: Pt feels improved today, no complaints overnight. He denies new weakness, headache, chest pain, or confusion. Pt girlfriend reports mental status at baseline and pain in L ankle, she would like his leg to be checked for clots. - Objective Vital Signs & Weight: Vital Signs (12 hours) Temp Pulse Resp BP BP Pulse Ox 09/18/17 05:21 157/79 H 09/18/17 03:45 98.1 F 78 20 196/94 H 98 09/17/17 23:33 97.6 F 82 22 H 166/83 H 99 09/17/17 21:05 97.6 F 82 22 H 99 09/17/17 20:00 97.7 F 60 20 161/84 H 96 I&O: 09/16/17 09/17/17 09/18/17 06:59 06:59 06:59 Intake Total 2404 Output Total 400 1625 Balance -400 779 Result Diagrams: 09/18/17 04:11 09/18/17 04:11 <Carrington Paniagua - Last Filed: 09/18/17 10:03> - Objective Vital Signs & Weight: Vital Signs (12 hours) Temp Pulse Resp BP BP BP Pulse Ox 09/18/17 11:41 98.6 F 66 16 140/78 98 09/18/17 10:46 161/76 H 09/18/17 08:18 71 161/76 H 09/18/17 08:17 161/76 H 09/18/17 08:00 97.5 F L 71 16 09/18/17 07:41 97.5 F L 71 16 161/76 H 96 09/18/17 05:21 157/79 H 09/18/17 03:45 98.1 F 78 20 196/94 H 98 I&O: 09/17/17 09/18/17 09/19/17 06:59 06:59 06:59 Intake Total 2404 240 Output Total 400 1625 Balance -400 779 240 Result Diagrams: 09/18/17 04:11 09/18/17 04:11 <Kindra Manjarrez - Last Filed: 09/18/17 13:00> Phys Exam - Physical Examination Respiratory: no wheezing, clear to auscultation bilateral Cardiovascular: RRR, no significant murmur Musculoskeletal: no edema, pulses present Neurological: non-focal, moves all 4 limbs Psychiatric: normal affect, A&O x 3 <Carrington Paniagua - Last Filed: 09/18/17 10:03> Dx/Plan (1) Acute lacunar infarction Code(s): I63.9 - CEREBRAL INFARCTION, UNSPECIFIED Status: Acute (2) Encephalopathy Code(s): G93.40 - ENCEPHALOPATHY, UNSPECIFIED Status: Acute (3) Hypothermia Code(s): T68.XXXA - HYPOTHERMIA, INITIAL ENCOUNTER Status: Acute (4) End stage chronic kidney disease Code(s): N18.6 - END STAGE RENAL DISEASE Status: Acute (5) Bradycardia Code(s): R00.1 - BRADYCARDIA, UNSPECIFIED Status: Acute (6) Hypothyroid Code(s): E03.9 - HYPOTHYROIDISM, UNSPECIFIED Status: Acute (7) Diabetes mellitus type 2 Code(s): E11.9 - TYPE 2 DIABETES MELLITUS WITHOUT COMPLICATIONS Status: Chronic - Plan Plan: 1. Acutre lacunar infarct - MRI brain shows new infarct - electrolytes at baseline - monitor on stroke and continuous heart monitoring - Neurology consulted: recommend high dose statin, tight BP control, tight BG control, ECHO/carotid doppler - ECHO: diastolic dysfunction, EF 50-59% - Carotid doppler: Mod-severe stenosis bilaterally - CV surgery recommend carotid angiogram outpatient 2. Encephalopathy, resolved - AOx3 - BUN/Cr at baseline (39/4.53) - continue to monitor 3. hypothermia, resolved - initial rectal temp 94.1, resolved with bearhugger in ER - no tachycardia, no WBC, no tachypnea - cont to monitor 4. ESRD - Went for Hemodialysis yesterday -Dr. Holcomb's recs from earlier today include starting HD in 3 weeks, once L AV fistula has matured - monitor BMP. stable compared to previous admit - continue sodium bicarb 5. Bradycardia reported at home - monitor on telemetry - HR in the 70s overnight 6. Chronic normocytic anemia - stable - likely 2/2 CKD/DM - monitor H/H 7. hypothyroidism - recently elevated TSH with low T4 - Synthroid increased to 125 mcg - Recommend outpatient follow up 8. DM II - Initially decreased insulin. Will increase insulin, but not to full home regimen. - mod sliding scale insulin - accuchecks 9. HLD - Increased Statin to high intensity. 10. HTN - Increase lisinopril to 10 mg Dispo: Stable, will continue to monitor and await nephrology recommendations. <Carrington Paniagua - Last Filed: 09/18/17 10:03> (1) Encephalopathy Code(s): G93.40 - ENCEPHALOPATHY, UNSPECIFIED Status: Acute (2) Hypothermia Code(s): T68.XXXA - HYPOTHERMIA, INITIAL ENCOUNTER Status: Acute (3) End stage chronic kidney disease Code(s): N18.6 - END STAGE RENAL DISEASE Status: Acute (4) Diabetes mellitus type 2 Code(s): E11.9 - TYPE 2 DIABETES MELLITUS WITHOUT COMPLICATIONS Status: Chronic (5) Hypothyroid Code(s): E03.9 - HYPOTHYROIDISM, UNSPECIFIED Status: Acute (6) S/P transmetatarsal amputation of foot Code(s): Z89.439 - ACQUIRED ABSENCE OF UNSPECIFIED FOOT Status: Acute (7) Amputation of right lower extremity below knee Code(s): Z89.511 - ACQUIRED ABSENCE OF RIGHT LEG BELOW KNEE Status: Acute <Kindra Manjarrez - Last Filed: 09/18/17 13:00> Attending Addendum - Attending Addendum Date/Time: 09/18/17 1252 I personally evaluated the patient and discussed the management with Dr. Paniagua. I agree with the History, Examination, Assessment and Plan documented above with any addition or exceptions noted below. Pt will get additional dialysis today. Per report, no events on tele monitor. Pt is feeling better and is back to baseline. <Kindra Manjarrez - Last Filed: 09/18/17 13:00>
[2017-09-18] MEDS: Carvedilol 6.25 MG TAB PO SCH (08:17)
[2017-09-18] MEDS: Lisinopril 10 MG TAB PO SCH (08:17)
[2017-09-18] MEDS: Gemfibrozil 600 MG TAB PO SCH ×2 (08:17→16:45)
[2017-09-18] MEDS: Aspirin 81 mg Enteric Coated Tablet PO SCH (08:17)
[2017-09-18] MEDS: Insulin Glargine 45 UNITS in Pre-Filled Syringe 1 EACH SC SCH ×2 (08:18→20:36)
[2017-09-18] MEDS: Ferrous Gluconate 324 MG TAB PO SCH (08:18)
[2017-09-18] MEDS: Amlodipine 10 MG TAB PO SCH (08:18)
[2017-09-18] MEDS: Heparin 5,000 UNITS/ML VIAL SC SCH ×3 (08:18→20:36)
[2017-09-18] MEDS: Sodium Bicarbonate Tab 325 MG TAB PO SCH ×3 (08:18→20:37)
[2017-09-18] MEDS ORDERED: Lisinopril 10 MG TAB PO SCH (10:00)
--- NOTE | 2017-09-18 12:10 | PRG ---
DATE OF SERVICE: 09/18/2017 CHIEF COMPLAINT: Acute stroke. INTERVAL HISTORY: The patient is doing well. He is ambulatory and is ready to go home. At this time, the patient and had no further questions for me. LABORATORY DATA: His white count is 5.5, hemoglobin 9.3, hematocrit 26, platelet count 227. Sodium 135, potassium 3.9, chloride 100, bicarbonate 26, BUN 39 and creatinine 4.53, and glucose 124 this morning. PHYSICAL EXAMINATION: VITAL SIGNS: His blood pressure is 161/76, temperature 98.6, pulse is 66. GENERAL APPEARANCE: Well-built, well-nourished man who is bilateral lower extremity amputee, he is on prosthesis. He seems much more stable today. NEUROLOGIC: Higher intellectual functions are normal. Cranial nerves, no facial asymmetry. Normal extraocular movements. Motor exam, normal strength bilaterally upper and lower extremities. IMPRESSION: Patient with a lacunar infarct. He is stable and doing well at this time. He is okay for discharge to home from a neurology standpoint. I understand there are many medical issues that are also being addressed and taken care of during this visit for the patient. Continue with the current plan for high dose statin, monitoring and effective control of risk factors and aspirin for stroke prophylaxis. Call Neurology if you have any further questions. ROSE
--- NOTE | 2017-09-18 13:28 | PRG ---
DATE OF SERVICE: 09/18/2017 SUBJECTIVE: This is a 57-year-old gentleman being seen for end-stage renal disease. The patient den ies any nausea, vomiting or chest pain. PHYSICAL EXAMINATION: GENERAL: Patient is awake, alert. VITAL SIGNS: Afebrile, pulse 65, breathing at 16, blood pressure 114/78. GENERAL APPEARANCE AND MENTAL STATUS: Fair. HEAD/NECK: Normocephalic, atraumatic. EYES: EOMI. No deformity. EARS: Clear. No ulcers. NOSE: Intact. No lesions. MOUTH: Clear. No discharge. THROAT: Clear. No exudate. LUNGS: Clear. No crackles. CARDIAC: S1, S2. No rub. ABDOMEN: Benign. BS+. GENITALIA/RECTUM: Prasad absent. BACK/EXTREMITIES: Edema 0+ Ulcer-. NEUROLOGICAL: Alert and motor intact. SKIN: Rash- Bruise- LYMPHATICS: Edema- Ulcer-. LABORATORY DATA: Show hemoglobin 9.3, potassium 3.9. ASSESSMENT AND RECOMMENDATIONS: 1. Stage 6 chronic kidney disease, stable. 2. Hyperkalemia, stable. 3. Metabolic acidosis, stable. No indication for dialysis today. We will plan dialysis tomorrow. Outpatient dialysis planning will be set up at [place].
[2017-09-18] MEDS: Atorvastatin Calcium 40 MG TAB PO SCH (20:37)
[2017-09-19] MEDS: Levothyroxine Sodium 125 MCG TAB PO SCH (05:01)
[2017-09-19 05:03] LABS: #Eosinphils 0.4 thou/uL (0.0-0.7); #Lymphocytes 1.9 thou/uL (1.20-3.40); #Monocytes 0.7 thou/uL (0.11-0.59); #Neutrophils 4.5 thou/uL (1.40-6.50); %Basophils 0.6 % (0.0-1.0); %Eosinophils 4.8 % (0.0-10.0); %Lymphocytes 25.2 % (21.0-51.0); %Monocytes 9.1 % (0.0-10.0); %Neutrophils 60.4 % (42.0-75.0); Hemoglobin 9.4 g/dL (14.0-18.0); Mean Corpuscular HGB CONC 35.7 g/dL (32.0-36.0); Mean Corpuscular Hemoglobin 29.4 pg (27.0-31.0); Mean Corpuscular Volume 82.3 fL (78.0-98.0); Mean Platelet Volume 7.2 fL (7.4-10.4); Platelet Count 288 thou/uL (130-400); Red Blood Cell (RBC) Count 3.21 mill/uL (4.70-6.10); White Blood Cell (WBC) Count 7.4 thou/uL (4.8-10.8)
--- NOTE | 2017-09-19 05:04 | PDOC.FM ---
- Subjective Subjective: Mr. Tafoya feels well today. He is anticipating HD today. Denies any new weakness or numbness. Denies any current L foot pain from his wound. Pain is well controlled. - Objective MAR Reviewed: Yes Vital Signs & Weight: Vital Signs (12 hours) Temp Pulse Resp BP BP Pulse Ox 09/19/17 04:52 99.1 F 76 18 177/94 H 98 09/18/17 23:49 99 F 72 18 162/79 H 95 09/18/17 20:24 98.9 F 79 16 173/90 H 95 09/18/17 19:40 98.9 F 79 16 I&O: 09/17/17 09/18/17 09/19/17 06:59 06:59 06:59 Intake Total 2404 1650 Output Total 400 1625 400 Balance -388 490 7923 Result Diagrams: 09/19/17 04:29 09/19/17 04:29 <Junie Melgar - Last Filed: 09/19/17 11:20> - Objective Vital Signs & Weight: Vital Signs (12 hours) Temp Pulse Resp BP BP Pulse Ox 09/19/17 12:00 98.1 F 66 16 131/77 98 09/19/17 11:40 131/77 09/19/17 09:11 175/84 H 09/19/17 09:10 79 175/84 H 09/19/17 08:00 98.8 F 79 16 98 09/19/17 07:50 98.8 F 79 16 175/84 H 98 09/19/17 04:52 99.1 F 76 18 177/94 H 98 I&O: 09/18/17 09/19/17 09/20/17 06:59 06:59 06:59 Intake Total 2404 2450 Output Total 1625 1300 Balance 779 1150 Result Diagrams: 09/19/17 04:29 09/19/17 04:29 <Everardo Hernandez - Last Filed: 09/19/17 13:45> Phys Exam - Physical Examination Constitutional: NAD Respiratory: no wheezing, no rales, no rhonchi, clear to auscultation bilateral Cardiovascular: RRR, no significant murmur Gastrointestinal: soft, non-tender, positive bowel sounds Musculoskeletal: no edema (R BKA, L foot wrapped in wound dressing) Neurological: non-focal, normal sensation, moves all 4 limbs (CN2-12 intact, UE and LE muscle strength 5/5 b/l) Psychiatric: normal affect, A&O x 3 <Junie Melgar - Last Filed: 09/19/17 11:20> Dx/Plan (1) Acute lacunar infarction Code(s): I63.9 - CEREBRAL INFARCTION, UNSPECIFIED Status: Acute (2) End stage chronic kidney disease Code(s): N18.6 - END STAGE RENAL DISEASE Status: Acute (3) HTN (hypertension) Code(s): I10 - ESSENTIAL (PRIMARY) HYPERTENSION Status: Acute (4) Diabetes mellitus type 2 Code(s): E11.9 - TYPE 2 DIABETES MELLITUS WITHOUT COMPLICATIONS Status: Chronic (5) Hypothyroid Code(s): E03.9 - HYPOTHYROIDISM, UNSPECIFIED Status: Chronic (6) Chronic anemia Code(s): D64.9 - ANEMIA, UNSPECIFIED Status: Chronic (7) HLD (hyperlipidemia) Code(s): E78.5 - HYPERLIPIDEMIA, UNSPECIFIED Status: Chronic (8) Encephalopathy Code(s): G93.40 - ENCEPHALOPATHY, UNSPECIFIED Status: Resolved (9) Amputation of right lower extremity below knee Code(s): Z89.511 - ACQUIRED ABSENCE OF RIGHT LEG BELOW KNEE Status: Chronic (10) Hypothermia Code(s): T68.XXXA - HYPOTHERMIA, INITIAL ENCOUNTER Status: Resolved (11) S/P transmetatarsal amputation of foot Code(s): Z89.439 - ACQUIRED ABSENCE OF UNSPECIFIED FOOT Status: Chronic - Plan Plan: Plan: 1. Acute lacunar infarct - MRI brain shows new infarct - monitor on stroke and continuous heart monitoring - Neuro recs: okay for discharge - ECHO: diastolic dysfunction, EF 50-59% - Carotid doppler: Mod-severe stenosis bilaterally - Talk to Dr. Hackett about carotid angiogram inpatient vs outpatient 2. ESRD -Plan for HD today - monitor BMP, stable - continue sodium bicarb - await outpatient dialysis arrangement 3. HTN - Increase carvedilol to 12.5 mg BID - continue amlodipine, lisinopril 4. Encephalopathy, resolved - AOx3 - BUN/Cr at baseline (46/5.28) - continue to monitor 5. Bradycardia reported at home - monitor on telemetry - HR in the 70s overnight 6. Chronic normocytic anemia - stable - likely 2/2 CKD/DM - monitor H/H 7. hypothyroidism - recently elevated TSH with low T4 - Synthroid increased to 125 mcg - Recommend outpatient follow up 8. DM II - continue glargine 45 BID - mod sliding scale insulin - accuchecks 9. HLD - high intensity statin, lipitor 80 10. Hypothermia, resolved - initial rectal temp 94.1, resolved with bearhugger in ER - no tachycardia, no WBC, no tachypnea - cont to monitor <Junie Melgar - Last Filed: 09/19/17 11:20> Attending Addendum - Attending Addendum Date/Time: 09/19/17 1045 I personally evaluated the patient and discussed the management with Dr. Melgar. I agree with the History, Examination, Assessment and Plan documented above with any addition or exceptions noted below. Patient doing well from CVA standpoint. His only symptom was altered mentation which is improved and at baseline. Neuro has signed off case. We are awaiting placement for HD chair which will keep him here needing HD until that is sorted out. Increase Coreg due to uncontrolled HTN. Will discuss need for inpatient CTA of head and neck with Dr. Hackett later today since patient is now on HD and have get contrast if needed. <Everardo Hernandez - Last Filed: 09/19/17 13:45>
[2017-09-19 05:37] LABS: Anion Gap 18 mmol/L (10-20); BUN (Urea Nitrogen) 46 mg/dL (8.4-25.7); Calc. Creatinine Clearance 15 mL/min (70-130); Calcium 7.7 mg/dL (7.8-10.44); Carbon Dioxide 20 mmol/L (22-29); Chloride 103 mmol/L (98-107); Estimated GFR-MDRD 11; Glucose 99 mg/dL (70-105); Potassium 4.3 mmol/L (3.5-5.1); Sodium 137 mmol/L (136-145)
[2017-09-19] MEDS: Ferrous Gluconate 324 MG TAB PO SCH (09:09)
[2017-09-19] MEDS: Gemfibrozil 600 MG TAB PO SCH ×2 (09:09→16:48)
[2017-09-19] MEDS: Amlodipine 10 MG TAB PO SCH (09:10)
[2017-09-19] MEDS: Heparin 5,000 UNITS/ML VIAL SC SCH ×3 (09:10→21:15)
[2017-09-19] MEDS: Aspirin 81 mg Enteric Coated Tablet PO SCH (09:10)
[2017-09-19] MEDS: Carvedilol 6.25 MG TAB PO SCH (09:10)
[2017-09-19] MEDS: Lisinopril 20 MG TAB PO SCH (09:11)
[2017-09-19] MEDS: Insulin Glargine 45 UNITS in Pre-Filled Syringe 1 EACH SC SCH ×3 (09:11→21:26)
[2017-09-19] MEDS: Sodium Bicarbonate Tab 325 MG TAB PO SCH ×3 (09:11→21:15)
[2017-09-19] MEDS ORDERED: Tuberculin PPD 0.1 ML VIAL I-DERMAL SCH ×2 (09:15→09:45)
[2017-09-19] MEDS ORDERED: Carvedilol 6.25 MG TAB PO SCH (11:45)
--- NOTE | 2017-09-19 12:50 | PRG ---
DATE OF SERVICE: 09/19/2017 SUBJECTIVE: Patient was seen and examined at bedside and overnight events noted. Patient denies any shortness of breath or chest pain or palpitation. No history of nausea or vomiting or diarrhea or fever or chills or cramps. OBJECTIVE: GENERAL: This is a well-built male in no apparent distress. VITAL SIGNS: Temperature 98, pulse 79, respiratory rate 16, blood pressure 174/ 84. HEENT: Atraumatic, normocephalic. Oral mucosa is moist. NECK: Supple. CARDIOVASCULAR: S1, S2 heard. Rate and rhythm regular. RESPIRATORY: Clear to auscultation. GASTROINTESTINAL: Abdomen is soft. MUSCULOSKELETAL: No tenderness. No edema. DERMATOLOGIC: No skin rash. NEUROLOGIC: Alert and awake and oriented x3. No focal neurologic deficits. Moving all the extremities. PSYCHIATRIC: Mood and affect normal. LABORATORY DATA: Potassium is 4.3, BUN is 46, and creatinine is 5.2. ASSESSMENT AND PLAN: 1. End-stage renal disease, started on dialysis during this admission, tolerating well today over the second session. Plan is to have at this time we will place PPD for outpatient placement. Case management consult placed. 2. Hyperkalemia, stable.. 3. Metabolic acidosis, stable. 4. Anemia, continue Epo with dialysis. 5. Edema, controlled. Plan is to continue on dialysis as tolerated, Tuesday, and Tuesday. Follow with case management for outpatient placement. [facility]
[2017-09-19] MEDS: Atorvastatin Calcium 40 MG TAB PO SCH (21:15)
[2017-09-20 05:12] LABS: #Eosinphils 0.2 thou/uL (0.0-0.7); #Lymphocytes 1.8 thou/uL (1.20-3.40); #Monocytes 0.6 thou/uL (0.11-0.59); #Neutrophils 3.3 thou/uL (1.40-6.50); %Basophils 0.4 % (0.0-1.0); %Eosinophils 4.2 % (0.0-10.0); %Lymphocytes 29.7 % (21.0-51.0); %Monocytes 10.4 % (0.0-10.0); %Neutrophils 55.3 % (42.0-75.0); Hemoglobin 8.9 g/dL (14.0-18.0); Mean Corpuscular HGB CONC 33.7 g/dL (32.0-36.0); Mean Corpuscular Hemoglobin 28.1 pg (27.0-31.0); Mean Corpuscular Volume 83.3 fL (78.0-98.0); Mean Platelet Volume 7.3 fL (7.4-10.4); Platelet Count 272 thou/uL (130-400); RBC Distribution Width 14.1 % (11.5-14.5); Red Blood Cell (RBC) Count 3.16 mill/uL (4.70-6.10); White Blood Cell (WBC) Count 5.9 thou/uL (4.8-10.8)
--- NOTE | 2017-09-20 05:24 | PDOC.FM ---
- Subjective Subjective: Mr. Tafoya feels well this morning. Denies pain. Says HD was alright yesterday , feels tired. Has no new complaints. - Objective MAR Reviewed: Yes Vital Signs & Weight: Vital Signs (12 hours) Temp Pulse Resp BP Pulse Ox 09/20/17 03:31 98.5 F 69 20 189/92 H 98 09/19/17 23:40 98.9 F 71 20 160/85 H 97 09/19/17 20:20 98.9 F 71 20 09/19/17 20:05 98.2 F 75 20 162/82 H 97 I&O: 09/18/17 09/19/17 09/20/17 06:59 06:59 06:59 Intake Total 2404 2450 800 Output Total 1625 1300 860 Balance 779 1150 -60 Result Diagrams: 09/20/17 04:47 09/20/17 04:47 <Junie Melgar - Last Filed: 09/20/17 09:20> - Objective Vital Signs & Weight: Vital Signs (12 hours) Temp Pulse Resp BP BP Pulse Ox 09/20/17 11:29 98.7 F 62 18 127/70 97 09/20/17 10:28 184/91 H 09/20/17 08:36 184/91 H 09/20/17 08:35 75 184/91 H 09/20/17 07:50 99.1 F 75 16 98 09/20/17 07:33 99.1 F 75 16 184/91 H 98 09/20/17 03:31 98.5 F 69 20 189/92 H 98 I&O: 09/19/17 09/20/17 09/21/17 06:59 06:59 06:59 Intake Total 2450 1250 300 Output Total 1300 1460 250 Balance 1150 -210 50 Result Diagrams: 09/20/17 04:47 09/20/17 04:47 <Everardo Hernandez - Last Filed: 09/20/17 12:08> Phys Exam - Physical Examination Constitutional: NAD HEENT: moist MMs Respiratory: no wheezing, no rhonchi, clear to auscultation bilateral Cardiovascular: RRR, no significant murmur Gastrointestinal: soft, non-tender, positive bowel sounds Musculoskeletal: pulses present (in UE) R BKA Neurological: non-focal, moves all 4 limbs Psychiatric: normal affect, A&O x 3 <RamónJunie - Last Filed: 09/20/17 09:20> Dx/Plan (1) Acute lacunar infarction Code(s): I63.9 - CEREBRAL INFARCTION, UNSPECIFIED Status: Acute (2) End stage chronic kidney disease Code(s): N18.6 - END STAGE RENAL DISEASE Status: Acute (3) HTN (hypertension) Code(s): I10 - ESSENTIAL (PRIMARY) HYPERTENSION Status: Acute (4) Diabetes mellitus type 2 Code(s): E11.9 - TYPE 2 DIABETES MELLITUS WITHOUT COMPLICATIONS Status: Chronic (5) Hypothyroid Code(s): E03.9 - HYPOTHYROIDISM, UNSPECIFIED Status: Chronic (6) Chronic anemia Code(s): D64.9 - ANEMIA, UNSPECIFIED Status: Chronic (7) HLD (hyperlipidemia) Code(s): E78.5 - HYPERLIPIDEMIA, UNSPECIFIED Status: Chronic (8) Encephalopathy Code(s): G93.40 - ENCEPHALOPATHY, UNSPECIFIED Status: Resolved (9) Amputation of right lower extremity below knee Code(s): Z89.511 - ACQUIRED ABSENCE OF RIGHT LEG BELOW KNEE Status: Chronic (10) Hypothermia Code(s): T68.XXXA - HYPOTHERMIA, INITIAL ENCOUNTER Status: Resolved (11) S/P transmetatarsal amputation of foot Code(s): Z89.439 - ACQUIRED ABSENCE OF UNSPECIFIED FOOT Status: Chronic - Plan Plan: 1. Acute lacunar infarct - MRI brain shows new infarct - monitor on stroke and continuous heart monitoring - Neuro recs: okay for discharge - ECHO: diastolic dysfunction, EF 50-59% - Carotid doppler: Mod-severe stenosis bilaterally - Dr. Hackett does not have preference as to whether CTA is outpatient vs inpatient. If patient is here tomorrow, will plan for CTA in am. 2. ESRD -Plan for HD MWF - monitor BMP, stable - continue sodium bicarb - await outpatient dialysis arrangement 3. HTN - Had increased carvedilol to 12.5 mg BID, will monitor BP today - continue amlodipine, lisinopril 4. Encephalopathy, resolved - AOx3 - BUN/Cr at baseline (46/5.28) - continue to monitor 5. Bradycardia reported at home - monitor on telemetry - HR in the 70s overnight 6. Chronic normocytic anemia - stable - likely 2/2 CKD/DM - monitor H/H 7. hypothyroidism - recently elevated TSH with low T4 - Synthroid increased to 125 mcg - Recommend outpatient follow up 8. DM II - continue glargine 45 BID - mod sliding scale insulin - accuchecks 9. HLD - high intensity statin, lipitor 80 10. Hypothermia, resolved - initial rectal temp 94.1, resolved with bearhugger in ER - no tachycardia, no WBC, no tachypnea - cont to monitor Disposition: Stable, awaiting outpatient HD placement. <Junie Melgar - Last Filed: 09/20/17 09:20> Attending Addendum - Attending Addendum Date/Time: 09/20/17 1207 I personally evaluated the patient and discussed the management with Dr. Melgar. I agree with the History, Examination, Assessment and Plan documented above with any addition or exceptions noted below. Patient doing well and denies complaints. His BP is still high and so are escalating therapy today. Otherwise, overall stable for discharge once HD chair is arranged for outpatient dialysis. If here tomorrow, will get CTA as part of completion of CVA workup prior to HD. <Everardo Hernandez - Last Filed: 09/20/17 12:08>
[2017-09-20] MEDS: Levothyroxine Sodium 125 MCG TAB PO SCH (05:32)
[2017-09-20 05:33] LABS: Anion Gap 15 mmol/L (10-20); BUN (Urea Nitrogen) 31 mg/dL (8.4-25.7); Calc. Creatinine Clearance 18 mL/min (70-130); Calcium 8.2 mg/dL (7.8-10.44); Carbon Dioxide 25 mmol/L (22-29); Chloride 103 mmol/L (98-107); Estimated GFR-MDRD 14; Glucose 65 mg/dL (70-105); Potassium 4.3 mmol/L (3.5-5.1); Sodium 139 mmol/L (136-145)
[2017-09-20] MEDS: Gemfibrozil 600 MG TAB PO SCH ×2 (08:35→16:03)
[2017-09-20] MEDS: Amlodipine 10 MG TAB PO SCH (08:35)
[2017-09-20] MEDS: Ferrous Gluconate 324 MG TAB PO SCH (08:35)
[2017-09-20] MEDS: Aspirin 81 mg Enteric Coated Tablet PO SCH (08:36)
[2017-09-20] MEDS: Lisinopril 20 MG TAB PO SCH (08:36)
[2017-09-20] MEDS: Sodium Bicarbonate Tab 325 MG TAB PO SCH ×3 (08:37→21:34)
[2017-09-20] MEDS: Heparin 5,000 UNITS/ML VIAL SC SCH ×3 (08:37→21:34)
[2017-09-20] MEDS: Insulin Glargine 45 UNITS in Pre-Filled Syringe 1 EACH SC SCH ×2 (08:37→21:32)
[2017-09-20] MEDS ORDERED: Carvedilol 6.25 MG TAB PO SCH ×3 (09:00→21:00)
[2017-09-20] MEDS: HumaLOG 300 UNITS/3 ML VIAL SC PRN (10:36)
[2017-09-20] MEDS ORDERED: ISOVUE-370 76%-LOCM 1 ML ONE (11:19)
--- NOTE | 2017-09-20 12:16 | PRG ---
DATE OF SERVICE: 09/20/2017 SUBJECTIVE: Patient was seen and examined at bedside and overnight events noted. Patient denies any shortness of breath or chest pain or palpitation. No history of nausea or vomiting or diarrhea or f ever or chills or cramps. OBJECTIVE: GENERAL: This is a well-built male in no apparent distress. VITAL SIGNS: Temperature 98.1, pulse 74, respiratory rate 18, blood pressure 184/91. HEENT: Atraumatic, normocephalic. Oral mucosa is moist. NECK: Supple. CARDIOVASCULAR: S1, S2 heard. Rate and rhythm regular. RESPIRATORY: Clear to auscultation. GASTROINTESTINAL: Abdomen is soft. MUSCULOSKELETAL: No tenderness. No edema. DERMATOLOGIC: No skin rash. NEUROLOGIC: Alert and awake and oriented x3. No focal neurologic deficits. Moving all the extremiti es. PSYCHIATRIC: Mood and affect normal. LABORATORY DATA: Potassium 4.3, BUN 31, creatinine is 4.3. ASSESSMENT AND PLAN: 1. End-stage renal disease. Continue on hemodialysis as tolerated. 2. Hyperkalemia, better. 3. Metabolic acidosis. 4. Anemia. 5. Edema, controlled. 6. Hypertension, we will titrate medications. 7. We will follow.
--- NOTE | 2017-09-20 19:11 | CT ---
CT ANGIOGRAM OF THE NECK 09/20/17 COMPARISON: None. HISTORY: 57-year-old male with bilateral carotid stenosis. TECHNIQUE: Serial axial CT imaging at 2.5 mm intervals from lung apices through skull based with IV contrast. Us ing a CT angiogram protocol, coronal and oblique sagittal 3D reformatted imaging obtained. FINDINGS: The imaged lung apices appear unremarkable. The imaged brain parenchyma appears grossly unremarkable. Imaged paranasal sinuses and mastoid air cells appear unremarkable. The retroantral and the parapharyngeal fat appears clear bilaterally. Parotid glands and submandibular glands are unremarkable. level of the tonsillar pillars, epiglottis and pre-epiglottic fat, hyoid bone, thyroid cartilage, cricoid cartilage, and thyroid gland appear gr ossly unremarkable. No neck lymphadenopathy is seen. There is a bovine arch noted. The origin of the innominate artery, left common carotid artery, left s ubclavian artery, right subclavian artery, and right common carotid artery demonstrate no hemodynamic ally significant stenosis on the basis on NASCET criteria. There is mild stenosis at the origin of bilateral vertebral arteries with atherosclerotic calcificati on noted at the origin of the left vertebral artery. The left vertebral artery is dominant. The right vertebral artery is relatively hypoplastic, especially distally, just proximal to the origin of the basilar artery. There is prominent atherosclerotic calcification involving the distal left vertebral artery just prox imal to the origin of the basilar artery with multifocal mild/moderate distal left vertebral artery s tenosis. There is bilateral cavernous carotid atherosclerotic calcification. There is calcified and noncalcified plaque at the level of the distal right common carotid artery ext ending into the proximal right internal and external carotid arteries. There is mild stenosis involving the distal aspect of the right common carotid artery. There is a foc al area of moderate stenosis at the origin of the right external carotid artery. Approximately 9 mm b eyond the origin of the right internal carotid artery, there is a focal area of stenosis involving th e right internal carotid artery estimated at approximately 65%. On the basis of noncalcified plaque, there is also stenosis involving the distal cervical portion of the right internal carotid artery jus t proximal to the skull base estimated in the 50% range. There is moderate stenosis involving the dis mayte portion of the petrous segment of the right internal carotid artery estimated in the 50% range as well. There is mild stenosis at the origin of the left internal carotid artery on the basis of noncalcified plaque. No worrisome osseous abnormality noted. IMPRESSION: Multifocal atherosclerotic disease with areas of stenosis as detailed above, including a focal short segment 65% stenosis of the proximal right internal carotid artery. POS: PATY
[2017-09-20] MEDS: Carvedilol 25 MG TAB PO SCH (21:34)
[2017-09-20] MEDS: Atorvastatin Calcium 40 MG TAB PO SCH (21:34)
[2017-09-21 05:19] LABS: #Eosinphils 0.2 thou/uL (0.0-0.7); #Lymphocytes 1.4 thou/uL (1.20-3.40); #Monocytes 0.5 thou/uL (0.11-0.59); #Neutrophils 3.8 thou/uL (1.40-6.50); %Basophils 0.7 % (0.0-1.0); %Eosinophils 3.3 % (0.0-10.0); %Lymphocytes 22.9 % (21.0-51.0); %Monocytes 8.1 % (0.0-10.0); %Neutrophils 64.9 % (42.0-75.0); Hemoglobin 8.8 g/dL (14.0-18.0); Mean Corpuscular HGB CONC 34.4 g/dL (32.0-36.0); Mean Corpuscular Hemoglobin 28.7 pg (27.0-31.0); Mean Corpuscular Volume 83.4 fL (78.0-98.0); Mean Platelet Volume 7.3 fL (7.4-10.4); Platelet Count 241 thou/uL (130-400); RBC Distribution Width 14.2 % (11.5-14.5); Red Blood Cell (RBC) Count 3.05 mill/uL (4.70-6.10); White Blood Cell (WBC) Count 5.9 thou/uL (4.8-10.8)
[2017-09-21 05:32] LABS: Anion Gap 16 mmol/L (10-20); BUN (Urea Nitrogen) 43 mg/dL (8.4-25.7); Calc. Creatinine Clearance 14 mL/min (70-130); Calcium 8.1 mg/dL (7.8-10.44); Carbon Dioxide 23 mmol/L (22-29); Chloride 100 mmol/L (98-107); Estimated GFR-MDRD 11; Glucose 72 mg/dL (70-105); Potassium 5.1 mmol/L (3.5-5.1); Sodium 134 mmol/L (136-145)
--- NOTE | 2017-09-21 05:37 | PDOC.FM ---
- Subjective Subjective: Mr. Tafoya has no new complaints today. He was curious what his CTA neck yesterday afternoon showed. Awaiting dialysis today and ready to go home. - Objective MAR Reviewed: Yes Vital Signs & Weight: Vital Signs (12 hours) Temp Pulse Resp BP Pulse Ox 09/21/17 04:20 97.3 F L 52 L 20 111/64 99 09/21/17 00:36 98.5 F 57 L 20 121/64 99 09/20/17 20:00 97.8 F 71 20 96 09/20/17 19:42 97.8 F 71 20 121/77 96 I&O: 09/19/17 09/20/17 09/21/17 06:59 06:59 06:59 Intake Total 2450 1250 900 Output Total 1300 1460 750 Balance 1150 -210 150 Result Diagrams: 09/21/17 04:42 09/21/17 04:42 <Junie Melgar - Last Filed: 09/21/17 09:08> - Objective Vital Signs & Weight: Vital Signs (12 hours) Temp Pulse Resp BP BP Pulse Ox 09/21/17 12:35 52 L 144/76 H 09/21/17 12:00 97.4 F L 52 L 16 144/76 H 97 09/21/17 08:00 97.6 F 49 L 16 09/21/17 07:42 97.6 F 49 L 16 113/68 100 09/21/17 04:20 97.3 F L 52 L 20 111/64 99 I&O: 09/20/17 09/21/17 09/22/17 06:59 06:59 06:59 Intake Total 1250 1020 240 Output Total 1460 750 Balance -210 270 240 Result Diagrams: 09/21/17 04:42 09/21/17 04:42 <Everardo Hernandez R - Last Filed: 09/21/17 13:30> Phys Exam - Physical Examination Constitutional: NAD Respiratory: no wheezing, no rales, no rhonchi, clear to auscultation bilateral Cardiovascular: RRR, no significant murmur Gastrointestinal: soft, non-tender Neurological: non-focal, moves all 4 limbs Psychiatric: normal affect, A&O x 3 <Junie Melgar - Last Filed: 09/21/17 09:08> Dx/Plan (1) Acute lacunar infarction Code(s): I63.9 - CEREBRAL INFARCTION, UNSPECIFIED Status: Acute (2) End stage chronic kidney disease Code(s): N18.6 - END STAGE RENAL DISEASE Status: Acute (3) HTN (hypertension) Code(s): I10 - ESSENTIAL (PRIMARY) HYPERTENSION Status: Acute (4) Diabetes mellitus type 2 Code(s): E11.9 - TYPE 2 DIABETES MELLITUS WITHOUT COMPLICATIONS Status: Chronic (5) Hypothyroid Code(s): E03.9 - HYPOTHYROIDISM, UNSPECIFIED Status: Chronic (6) Chronic anemia Code(s): D64.9 - ANEMIA, UNSPECIFIED Status: Chronic (7) HLD (hyperlipidemia) Code(s): E78.5 - HYPERLIPIDEMIA, UNSPECIFIED Status: Chronic (8) Encephalopathy Code(s): G93.40 - ENCEPHALOPATHY, UNSPECIFIED Status: Resolved (9) Amputation of right lower extremity below knee Code(s): Z89.511 - ACQUIRED ABSENCE OF RIGHT LEG BELOW KNEE Status: Chronic (10) Hypothermia Code(s): T68.XXXA - HYPOTHERMIA, INITIAL ENCOUNTER Status: Resolved (11) S/P transmetatarsal amputation of foot Code(s): Z89.439 - ACQUIRED ABSENCE OF UNSPECIFIED FOOT Status: Chronic - Plan Plan: 1. Acute lacunar infarct - MRI brain shows new infarct - monitor on stroke and continuous heart monitoring - Neuro recs: okay for discharge - ECHO: diastolic dysfunction, EF 50-59% - Carotid doppler: Mod-severe stenosis bilaterally - CTA done 09/20: proximal R ICA stenosis 65%. multifocal atherosclerotic disease 2. ESRD -Plan for HD MWF - monitor BMP, stable - continue sodium bicarb - await outpatient dialysis arrangement 3. HTN - Continue carvedilol 25 BID - continue amlodipine, lisinopril 4. Encephalopathy, resolved - AOx3 - BUN/Cr at baseline, continue to monitor 5. Bradycardia reported at home - monitor on telemetry 6. Chronic normocytic anemia - stable, monitor H/H - likely 2/2 CKD/DM 7. Hypothyroidism - recently elevated TSH with low T4 - Synthroid increased to 125 mcg - Recommend outpatient follow up 8. DM II - nighttime insulin has been held past two nights. will change to glargine 45 u in the am, 10 u in the pm. - mod sliding scale insulin - accuchecks 9. HLD - high intensity statin, lipitor 80 10. Hypothermia, resolved - initial rectal temp 94.1, resolved with bearhugger in ER - no tachycardia, no WBC, no tachypnea - cont to monitor Disposition: Stable, awaiting outpatient HD placement. <Junie Melgar - Last Filed: 09/21/17 09:08> Attending Addendum - Attending Addendum Date/Time: 09/21/17 7750 I personally evaluated the patient and discussed the management with Dr. Melgar. I agree with the History, Examination, Assessment and Plan documented above with any addition or exceptions noted below. Patient doing well. We are awaiting approval for outpatient HD and he should be stable for discharge. BP much improved with Coreg escalation. <Everardo Hernandez - Last Filed: 09/21/17 13:30>
[2017-09-21] MEDS: Levothyroxine Sodium 125 MCG TAB PO SCH (07:37)
[2017-09-21] MEDS: Heparin 5,000 UNITS/ML VIAL SC SCH ×2 (08:15→15:06)
[2017-09-21] MEDS: Ferrous Gluconate 324 MG TAB PO SCH (08:15)
[2017-09-21] MEDS: Sodium Bicarbonate Tab 325 MG TAB PO SCH ×2 (08:15→15:06)
[2017-09-21] MEDS: Insulin Glargine 45 UNITS in Pre-Filled Syringe 1 EACH SC SCH (08:15)
[2017-09-21] MEDS: Aspirin 81 mg Enteric Coated Tablet PO SCH (08:15)
[2017-09-21] MEDS: Gemfibrozil 600 MG TAB PO SCH (08:21)
[2017-09-21] MEDS ORDERED: Epoetin (ESRD) 10,000 UNITS/ML VIAL IVP SCH (09:00)
[2017-09-21] MEDS ORDERED: READ PPD TEST SITE PO SCH (09:00)
--- NOTE | 2017-09-21 11:43 | PRG ---
DATE OF SERVICE: 09/21/2017 SUBJECTIVE: Patient was seen and examined at bedside and overnight events noted. Patient denies any shortness of breath or chest pain or palpitation. No history of nausea or vomiting or diarrhea or f ever or chills or cramps. OBJECTIVE: GENERAL: This is a well-built male in no apparent distress. VITAL SIGNS: Temperature 97.6, pulse 49, respiratory rate 16, blood pressure 139/68. HEENT: Atraumatic, normocephalic. Oral mucosa is moist. NECK: Supple. CARDIOVASCULAR: S1, S2 heard. Rate and rhythm regular. RESPIRATORY: Clear to auscultation. GASTROINTESTINAL: Abdomen is soft. MUSCULOSKELETAL: No tenderness. No edema. DERMATOLOGIC: No skin rash. NEUROLOGIC: Alert and awake and oriented x3. No focal neurologic deficits. Moving all the extremiti es. PSYCHIATRIC: Mood and affect normal. LABORATORY DATA: Hemoglobin 8.8, potassium 5.1, BUN is 43 and creatinine 5.4. ASSESSMENT AND PLAN: 1. End-stage renal disease. We will continue hemodialysis Tuesday, Tuesday, and Tuesday. The patie nt was seen during dialysis, tolerating well. 2. Hyperkalemia, better. 3. Metabolic acidosis, better with dialysis. 4. Anemia. 5. Edema, controlled. 6. Hypertension, stable. Plan is to continue on dialysis as tolerated. Follow with case management for outpatient placement.
[2017-09-21 12:35] VITALS: BP 144/76; TEMP 97.4
[2017-09-21] MEDS: Amlodipine 10 MG TAB PO SCH (12:35)
[2017-09-21] MEDS: Lisinopril 20 MG TAB PO SCH (12:35)
[2017-09-21] MEDS: Carvedilol 25 MG TAB PO SCH (12:36)
--- NOTE | 2017-09-21 14:11 | PDOC.EVN ---
Event Note - Event Note Event Note: Residents paged after pt returned from HD due to pulse momentarily in 30s for 3- 5 seconds with pt diaphoretic. HR promptly returned to upper 50s. Nursing instructed to obtain accucheck which revealed blood sugar of 48. Pt given lunch and had blood sugar checked shortly thereafter was 70. Went to pt bedside to evaluate. Pt alert and oriented without complaints. BP 144/76, HR 57, RR 18, 97 % on RA. Discussed lab findings and pt aware blood sugar was low, stated he did not eat much before dialysis. Also discussed risk/benefit of recent increase in pt's carvedilol. After discussion with pt, decision was made to cut coreg dose to 12.5 mg BID which seemed to be better tolerated. Will also titrate outpatient insulin dosing due to low to low-normal blood sugar readings during hospitalization. Pt sees Abigail Islas NP as primary care outpatient and has follow up. Pt has reportedly been approved for HD chair in [place], just awaiting HD chair time. Pt is stable for discharge at this time.
[2017-09-21] MEDS ORDERED: Epoetin (ESRD) 10,000 UNITS/ML VIAL SC SCH (15:00)
--- NOTE | 2017-09-22 05:56 | DIS-2 ---
DATE OF ADMISSION: 09/14/2017 DATE OF DISCHARGE: 09/21/2017 RESIDENT: Dr. Junie Melgar. ADMITTING ATTENDING: Dr. Manjarrez. DISCHARGE ATTENDING: Dr. Hernandez. CONSULTATIONS: Dr. Mclaughlin, Dr. Hackett, Dr. Romero. PROCEDURES: Echo, carotid Doppler, MRI head, CTA of the neck. PRIMARY DIAGNOSES: 1. Acute left lacunar infarct. 2. End-stage renal disease on hemodialysis. 3. Hypertension. 4. Type 2 diabetes. 5. Encephalopathy, resolved. 6. Hypothermia, resolved SECONDARY DIAGNOSES: 1. Chronic normocytic anemia. 2. Hyperlipidemia. 3. Hypothyroid. DISCHARGE MEDICATIONS: 1. Synthroid 112 mcg p.o. daily. 2. Aspirin 81 mg p.o. daily. 3. Gemfibrozil 600 mg p.o. b.i.d. 4. Amlodipine 10 mg p.o. daily. 5. Ferrous gluconate 1 tab 324 mg p.o. daily. 6. Sodium bicarbonate 325 mg p.o. t.i.d. 7. Lipitor 80 mg p.o. at bedtime. 8. Carvedilol 12.5 mg p.o. b.i.d. 9. Lisinopril 20 mg p.o. daily. 10. Levemir 20 units subcutaneous b.i.d. DISCONTINUED MEDICATIONS: 1. Simvastatin 40 mg p.o. daily. 2. Insulin detemir 60 units subcutaneous b.i.d. HISTORY OF PRESENT ILLNESS AND HOSPITAL COURSE: Mr. Tafoya presented to the ER with altered mental status and hypothermia which quickly resolved. He presented with weakness and concern for stroke-like symptoms considering his slurred speech, weakness reported inability to walk. This episode was similar presentation to his previous admission a few days before. In the ER, he got CT brain, labs, blood cultures, UA, EKG. CT of brain showed only chronic ischemic changes and old lacunar infarcts. Stroke workup was performed with carotid Dopplers as well as MRI which showed 1 cm left-sided acute lacunar infarct. Echo performed. Patient started on hemodialysis during this admission on Tuesday , Tuesday, and Tuesday. Blood pressure and blood glucose were managed to gain better control. The patient got CTA neck as well showing proximal right ICA 65 % stenosis and multifocal atherosclerotic disease. Patient showed no focal signs and was stable for discharge with hemodialysis on Tuesday, Tuesday, and Tuesday. DISPOSITION: Stable. DISCHARGE INSTRUCTIONS: 1. Location: Home. 2. Diet: Diabetic diet. 3. Activity: As tolerated. 4. Follow up with PCP and Dr. Hackett. ROSE
== END 2017-09-21 16:06 | disposition home or self-care (01) | DRG 64 ==
LOC: ERS 19:46 → 2SE 22:30 → OBSVTOIN 09-16 14:50 → 2SE 09-17 16:44
PROVIDERS: ADMIT Family Medicine; ATTEND Family Medicine
DX: I63.9 Cerebral infarction, unspecified (principal); N18.6 End stage renal disease; G93.40 Encephalopathy, unspecified; I12.0 Hypertensive chronic kidney disease with stage 5 chronic kidney disease or end stage renal disease; E87.2 Acidosis; G81.91 Hemiplegia, unspecified affecting right dominant side; E11.22 Type 2 diabetes mellitus with diabetic chronic kidney disease; Z99.2 Dependence on renal dialysis; D64.9 Anemia, unspecified; E78.5 Hyperlipidemia, unspecified; T68.XXXA Hypothermia, initial encounter; E03.9 Hypothyroidism, unspecified; R47.81 Slurred speech; E87.5 Hyperkalemia; R60.9 Edema, unspecified; R00.1 Bradycardia, unspecified; I65.23 Occlusion and stenosis of bilateral carotid arteries; Z72.0 Tobacco use; E11.65 Type 2 diabetes mellitus with hyperglycemia; I67.9 Cerebrovascular disease, unspecified; R29.810 Facial weakness; E78.00 Pure hypercholesterolemia, unspecified; Z89.432 Acquired absence of left foot; Z96.651 Presence of right artificial knee joint; E11.621 Type 2 diabetes mellitus with foot ulcer
CPT/HCPCS: 36415; 36416; 70450; 70498; 70551; 71045; 80048; 80053; 80061; 81003; 81015; 82553; 83036; 83690; 83735; 84100; 84439; 84443; 84484; 85025; 86580; 86704; 86706; 86803; 87040; 87340; 90935; 93005; 93306; 93880; G0257; G8978-GP-CJ; G8979-GP-CJ; G8980-GP-CJ; G8987-GO-CI; G8988-GO-CI; G8989-GO-CI; G8996-GN-CH; G8997-GN-CH; J1644; Q4081

== ENCOUNTER 2017-11-23 09:30 | Day surgery (SDC) | payer MEDICARE, MEDICAID ==
--- NOTE | 2017-11-22 13:20 | HP ---
HISTORY OF PRESENT ILLNESS: 57-year-old male patient had vein mapping, 06/14/2017. vein to be 2.1, 2.2, 1.5 mm; 1.8 in the antecubital fossa; and 2.1 mm. On the left, it was 3.2, 2.0, 2.1, 2.5 mm basilic vein left 4.4, 4.7, 2.8 mm. The patient underwent left wrist Sweetie fistula, 2017, 4-mm coronary dilator, calibrated. This has been used for dialysis, but recently thrombosed. Dr. King had seen him on two occasions initially performing ADMINISTRATIVE SERVICES ASSISTANT arteriovenous anastomosis of ra dial artery, but it did not last and he saw him again a few days later, repeated the procedure, and t he fistula remains thrombosed. Dr. King placed a right cuffed tunnel hemodialysis cathet er. The patient dialyzes Tuesday, Tuesday, and Tuesday at [facility]. He presents today fo r evaluation and plan is for a new left arm fistula as an outpatient [facility]. ALLERGIES: None. TOBACCO: None. ALCOHOL: None. DRUG USE: None. MEDICATIONS: Iron sulfate, amlodipine, levothyroxine, gemfibrozil, atorvastatin, Levemir subcu. PAST MEDICAL HISTORY: Diabetes mellitus, hypertension, hypothyroidism, triglyceride, right BKA statu s, left transmetatarsal amputation. PAST SURGICAL HISTORY: Left foot surgery; right foot surgery; right BKA, 09/2013, ambulatory on pros thesis; left transmetatarsal amputation 06/16/2016, healed secondarily; left Sweetie fistula as noted above. REVIEW OF SYSTEMS: Ten-point noncontributory. FAMILY HISTORY: Noncontributory. PHYSICAL EXAMINATION: VITAL SIGNS: 149 pounds, 75 inches, 179/93, 72, 98.1 degrees. HEAD, EARS, EYES, NOSE, AND THROAT: Unremarkable. LUNGS: Clear to auscultation. CARDIAC: Regular rate and rhythm without murmur or gallop. ABDOMEN: Soft, nontender. Thrombosed fistula, left Sweetie dialysis catheter, right chest. ASSESSMENT AND PLAN: 1. Thrombosed fistula, left arm, status post 2 attempts at Interventional Radiology salvage, unsucce ssful. We will plan placement of a left arm primary fistula, most likely antecubital area, possibly revision of the wrist pending operative findings. Regional anesthesia, intravenous sedation, outpati ent. Risks and benefits discussed. 2. Diabetes mellitus. 3. Hypertension. 4. Right [id number] amputation status, ambulatory with prosthesis. 5. Left transmetatarsal amputation status, well healed wound secondarily.
[2017-11-22 13:30] VITALS: BMI 19.2
[2017-11-23] MEDS ORDERED: CEFAZOLIN/Water 2 GM/20 ML SYRINGE ONE (09:59)
[2017-11-23 10:02] LABS: #Eosinphils 0.2 thou/uL (0.0-0.7); #Lymphocytes 1.8 thou/uL (1.20-3.40); #Monocytes 0.4 thou/uL (0.11-0.59); #Neutrophils 3.7 thou/uL (1.40-6.50); %Basophils 0.8 % (0.0-1.0); %Lymphocytes 29.3 % (21.0-51.0); %Monocytes 5.9 % (0.0-10.0); %Neutrophils 60.2 % (42.0-75.0); Mean Corpuscular HGB CONC 35.3 g/dL (32.0-36.0); Mean Corpuscular Hemoglobin 30.7 pg (27.0-31.0); Mean Corpuscular Volume 87.1 fL (78.0-98.0); Mean Platelet Volume 6.7 fL (7.4-10.4); Platelet Count 318 thou/uL (130-400); RBC Distribution Width 14.6 % (11.5-14.5); Red Blood Cell (RBC) Count 3.58 mill/uL (4.70-6.10); White Blood Cell (WBC) Count 6.1 thou/uL (4.8-10.8)
[2017-11-23 10:22] LABS: Anion Gap 18 mmol/L (10-20); BUN (Urea Nitrogen) 54 mg/dL (8.4-25.7); Calc. Creatinine Clearance 13 mL/min (70-130); Calcium 8.8 mg/dL (7.8-10.44); Carbon Dioxide 20 mmol/L (22-29); Chloride 100 mmol/L (98-107); Estimated GFR-MDRD 10; Glucose 218 mg/dL (70-105); Potassium 5.4 mmol/L (3.5-5.1); Sodium 133 mmol/L (136-145)
[2017-11-23] MEDS ORDERED: Fentanyl 100 MCG/2 ML VIAL ONE ×2 (11:44→12:30)
[2017-11-23] MEDS ORDERED: Heparin 10,000 UNITS/ 10 ML VIAL ONE ×2 (12:00→14:37)
[2017-11-23] MEDS ORDERED: Heparin 5,000 UNITS/ML VIAL ONE (12:06)
[2017-11-23] MEDS ORDERED: Lidocaine 0.5%/Epinephrine 1:200,000 50 ml Vial ONE (12:06)
[2017-11-23] MEDS ORDERED: Protamine Sulfate 50 MG/5 ML VIAL ONE (12:06)
[2017-11-23] MEDS ORDERED: Bupivacaine HCl 0.5%/Epinephrine 1:200,000/PF 30 ml Vial ONE ×2 (12:06→14:05)
[2017-11-23] MEDS ORDERED: Lidocaine 2% PF Inj 2 ML VIAL ONE (12:07)
[2017-11-23] MEDS ORDERED: Midazolam HCl 2 mg/2 ml Vial ONE (12:30)
[2017-11-23] MEDS ORDERED: Propofol 500 MG/50 ML VIAL ONE (12:45)
[2017-11-23] MEDS ORDERED: Lidocaine 1% PF 5 ML VIAL ONE (14:37)
[2017-11-23] MEDS ORDERED: PROPOFOL 200 MG/20 ML VIAL ONE (14:37)
--- NOTE | 2017-11-23 19:03 | OP ---
DATE OF PROCEDURE: 11/23/2017 PREOPERATIVE DIAGNOSES: End-stage renal disease, thrombosed Sweetie fistula, failed intervention for salvage. POSTOPERATIVE DIAGNOSES: End-stage renal disease, thrombosed Sweetie fistula, failed intervention for salvage. PROCEDURE: Left arm primary AV fistula antecubital vein to proximal radial artery outflow basilic an d cephalic vein calibrated 4 mm coronary dilators. Retrograde antecubital vein preserved. SURGEON: Gopi Galvin M.D. ANESTHESIA: Regional, TIVA. PROCEDURE: The patient was taken to the operating room under left arm regional anesthesia and intrav enous sedation, left upper extremity was prepped with ChloraPrep, draped in routine fashion. Proxima l volar forearm incision made below the antecubital fossa along. This was carried through skin and s ubcutaneous tissue, identifying the antecubital vein, dissecting the perforating branch of the antecu bital vein to the proximal radial artery, brachial, ulnar arteries dissected free. The patient was g iven 6000 units of heparin intravenously. After adequate circulation time, the brachial, radial, and ulnar arteries clamped with vascular clamp and perforating branch antecubital vein, which had been d issected free and branches divided between 4-0 silk light ties and clips and spatulated and interroga celine as described and perforating branch antecubital vein anastomosed to the proximal with samuel nuous suture of 6-0 Prolene. Vascular clamps released. There was excellent outflow interrogated by Doppler basilic and cephalic vein upper arm. Retrograde antecubital vein preserved. Good hemostasis noted. Patient was given 50 mg of protamine and Veazey. Surgicel applied. Subcutaneous tissues ap proximated with 3-0 Monocryl, skin with subdermal 4-0 Monocryl and DermaGlue applied.
== END 2017-11-23 18:20 | disposition home or self-care (01) ==
LOC: SDC 09:30
PROVIDERS: ATTEND Specialist
PROC: 03180ZD Bypass Left Brachial Artery to Upper Arm Vein, Open Approach (ICD-10-PCS; principal; 2017-11-23)
DX: T82.868A Thrombosis due to vascular prosthetic devices, implants and grafts, initial encounter (principal); I12.0 Hypertensive chronic kidney disease with stage 5 chronic kidney disease or end stage renal disease; E11.22 Type 2 diabetes mellitus with diabetic chronic kidney disease; N18.6 End stage renal disease; E03.9 Hypothyroidism, unspecified; Z79.4 Long term (current) use of insulin; Z79.899 Other long term (current) drug therapy; Z89.511 Acquired absence of right leg below knee; Z89.432 Acquired absence of left foot; Z99.2 Dependence on renal dialysis
CPT/HCPCS: 80048; 85025; 90935; G0257; J0670; J1644; J2001; J2250; J2704; J2720; J3010

== ENCOUNTER 2018-02-21 08:30 | Day surgery (SDC) | payer MEDICARE, MEDICAID ==
[2018-02-20 09:46] VITALS: BMI 18.4
[2018-02-21 12:01] VITALS: BP 168/74; TEMP 97.6
--- NOTE | 2018-02-21 12:34 | SPC ---
LEFT UPPER EXTREMITY ARTERIOVENOUS DIALYSIS FISTULOGRAM AND VENOGRAM TO THE SVC: 02/21/2018 HISTORY: Patient with recently placed left upper extremity arteriovenous dialysis fistula with difficult acces s and difficulty in dialyzing the patient on initial attempt at dialysis for the left upper extremity fistula. FLUOROSCOPY: Total fluoroscopy time is 1.2 minutes with a total dose of 12,244 mGy cm2. TECHNIQUE: After informed consent was obtained, the patient was placed on the angiography table in the supine po sition. The left upper extremity was meticulously prepped and draped in the usual sterile fashion. FINDINGS: Limited sonographic evaluation of the fistula demonstrated an artery to antecubital vein anastomosis with short antecubital access. As a result, the cephalic vein outflow was accessed utilizing [facility] real-time ultrasound guidance, after the skin and subcutaneous tissues were infiltrated with buff ered 1% Lidocaine for local anesthesia. A 4 Maltese introducer sheath was placed. Fistulogram and venogram to the SVC were performed. Davide r, only the cephalic vein outflow was initially opacified, with only minimal opacification of the bas ilic vein outflow due to collaterals. As a result, manual compression was applied to the cephalic ve in outflow, and a contrast injection was performed to reflux the basilic vein outflow, which was also widely patent at the level of the SVC. Attempts at manual compression of each venous outflow were unsuccessful at refluxing the arteriovenou s anastomosis. As a result, a blood pressure cuff was applied above systolic pressure, and contrast was injected, demonstrating reflux into the radial artery. The introducer sheath was removed, and hemostasis was achieved with direct pressure. A dry, sterile dressing was placed. The patient tolerated the procedure well and without immediate complication. FINDINGS: The patient has a left upper extremity arteriovenous dialysis fistula with antecubital vein to radial artery anastomosis. Outflow is via both the cephalic and the basilic veins, which are widely patent , with patency of the venous outflow to the level of the SVC. The arteriovenous anastomosis is also patent. A tunneled right internal jugular vein hemodialysis catheter is noted in place, with the tip overlyin g the SVC. IMPRESSION: Patent left upper extremity arteriovenous dialysis fistula, with outflow via both the cephalic and ba silic veins, with patent antecubital to radial artery anastomosis. POS: [facility]
[2018-02-24] MEDS ORDERED: Heparin 1,000 UNITS/ML VIAL ONE (13:41)
== END 2018-02-21 11:20 | disposition home or self-care (01) ==
LOC: SPEC 08:30
PROVIDERS: ATTEND Specialist
PROC: B51WYZZ Fluoroscopy of Dialysis Shunt/Fistula using Other Contrast (ICD-10-PCS; principal; 2018-02-21)
DX: N18.6 End stage renal disease (principal); Z79.82 Long term (current) use of aspirin; Z79.899 Other long term (current) drug therapy
CPT/HCPCS: 36901

== ENCOUNTER 2018-03-26 16:29 | Observation (INO) | payer MEDICARE, MEDICAID ==
[~2018-03-26 16:29] MED LIST: Heparin 1,000 UNITS/ML VIAL ONE
[2018-03-26] MEDS ORDERED: Aspirin 325 MG TAB ONE (16:56)
[2018-03-26 18:15] LABS: Troponin I 0.137 ng/mL (< 0.028)
[2018-03-26] MEDS ORDERED: HumaLOG 300 UNITS/3 ML VIAL SC PRN ×2 (19:02)
[2018-03-26] MEDS ORDERED: Acetaminophen 325 MG TAB PO PRN (19:02)
[2018-03-26] MEDS ORDERED: Dextrose 50% Abboject 50 ML SYRINGE SLOW IVP PRN (19:02)
[2018-03-26] MEDS ORDERED: Dextrose 5% in Water 1,000 ML IV PRN (19:02)
[2018-03-26 19:35] LABS: HBSAg Index 0.21 S/CO (0-0.99); Hep B Surf Ag Non-Reactive S/CO (NonReactive)
--- NOTE | 2018-03-26 19:53 | HP ---
PRIMARY CARE PROVIDER: Malcom espinoza [place], Dr. Islas. CHIEF COMPLAINT: "Couldn't catch my breath." HISTORY OF PRESENT ILLNESS: This is a 58-year-old male with end-stage renal disease on hemodialysis Tuesday, Tuesday, and Tuesday with Dr. Romero, diabetes type 2, hypertension, and dyslipidemia, who presents to the emergency room with difficulty breathing. The patient reports that overnight for about 5 to 6 hours that he could not catch his breath. He also complains of coughing a dry cough over the past two days with associated chest pain. He states his breathing is better this morning, denies any precipitants or relieving factors and denies any prior history. He reports his last dialysis two days ago was normal, and he was overall feeling well until last night. He denies any breathing problems currently. The patient states due to the symptoms, he was taken to the Paramedics by his girlfriend and told that his EKG was abnormal with recommendation for an ER evaluation. He first presented to the ER in [place] and was subsequently transferred here with a diagnosis of volume overload. The patient has received 325 mg of aspirin and hospitalist called for admission. ALLERGIES: NO KNOWN DRUG ALLERGIES. CURRENT MEDICATIONS: Reconciled with the bottles (except insulin); 1. Amlodipine 10 mg daily. 2. Gemfibrozil 600 mg b.i.d. 3. Levemir 26 units twice daily. 4. Coreg 6.25 mg twice daily. 5. Aspirin, his girlfriend thinks it is 81 mg daily. PAST MEDICAL HISTORY: 1. Anemia of chronic kidney disease. 2. Dyslipidemia. 3. End-stage renal disease, on hemodialysis with Dr. Romero. 4. Diabetes mellitus type 2. 5. Hypertension. PAST SURGICAL HISTORY: 1. Right BKA. 2. Toe amputations on the left foot. 3. Left forearm shunt, which is subsequently clotted. 4. Right subclavian dialysis port, placed approximately five months ago after the clotting in his left forearm shunt. SOCIAL HISTORY: The patient lives with his girlfriend of 15 years, who is his surrogate decision maker, Stacey, phone #[phone]. He denies any alcohol, tobacco, or drug use. FAMILY HISTORY: Significant for dad, who of cancer and liver disease. REVIEW OF SYSTEMS: Negative for fevers, chills, nausea, vomiting, any peripheral swelling. All remaining review of systems are reviewed and negative. PHYSICAL EXAMINATION: VITAL SIGNS: Blood pressure 165/94, pulse 76, respirations are 18, temperature 98.6, and saturations 98% on room air. GENERAL: Awake, alert, responsive, in no apparent distress. Able to answer questions appropriately. HEENT: Pupils are equal, round, and reactive to light. No scleral icterus. Oral mucosa is pink and moist. NECK: Supple. Nontender. LYMPHATICS: No palpable cervical or supraclavicular lymphadenopathy. The patient does have a right subclavian line in place. LUNGS: Some faint bibasilar rales. Good air movement. HEART: Normal S1 and S2. No significant murmur. Regular rate and rhythm. ABDOMEN: Soft. Present bowel sounds. Nontender and nondistended. EXTREMITIES: No clubbing, cyanosis, or edema. SKIN: The patient does have abrasions to the anterior aspect of his left lower extremity and does have a right BKA. NEUROLOGIC: No focal deficits. PSYCHIATRY: Euthymic, appears stated age. LABORATORY DATA: Labs are personally reviewed. CBC: 7.3, 10.6, 31.3, and 288. Chemistry: 141, 4.4, 98, 26, 44, 7.9, and 185. AST 13, ALT 9, and alkaline phosphatase 46. Troponin 0.137 and 0.107. EKG is personally reviewed. EKG shows normal axis, sinus rhythm, prolonged QT interval with a QTc of 487, some nonspecific T-wave flattening. Chest x-ray is personally reviewed, which shows new small bilateral pleural effusions, right-sided dialysis catheter in place. IMPRESSION: 1. Dyspnea, likely secondary to volume overload, however, cannot exclude a cardiac etiology. 2. End-stage renal disease, on hemodialysis. 3. Prolonged QT interval with QTc 487. 4. Anemia of chronic kidney disease. 5. Type 2 diabetes, appears controlled. 6. Hypertension. 7. History of right BKA. PLAN: 1. Observation status in the hospital. 2. Nephrology consultation with consideration for additional dialysis. 3. Echocardiogram, continue aspirin, monitor for recurrent chest pain. If echocardiogram is abnormal or recurrence of chest pain or concerns, consideration for either stress testing or Cardiology consultation. The patient has seen Dr. Russ in the past and estimates last cardiac evaluation, 4 to 5 years ago. 4. Managing blood pressure with his home amlodipine and Coreg. 5. Continuing the gemfibrozil. 6. We will continue levemir at his usual dose with sliding scale insulin as needed and before meals at bedtime Accu-Cheks. 7. Monitoring on telemetry. 8. Avoid medications that can prolong the QT interval. 9. DVT prophylaxis with heparin. 10. GI prophylaxis not indicated. The patient will be written for a renal diet. 11. Code status is full and surrogate decision maker is Stacey as noted above. 12. Reviewed the plan of care with patient and his partner, no questions or further needs at end of evaluation. 13. The patient is at high risk given age, comorbidities, and current presentation. Job ID: [id number] MTDNate
[2018-03-26] MEDS ORDERED: Benzonatate 100 MG CAP PO PRN (20:06)
[2018-03-26] MEDS ORDERED: Benzonatate 100 MG CAP ONE (20:09)
[2018-03-26] MEDS ORDERED: Insulin Glargine 26 UNITS in Pre-Filled Syringe 1 EACH SC SCH (21:00)
[2018-03-26] MEDS ORDERED: Heparin 5,000 UNITS/ML VIAL SC SCH (21:00)
[2018-03-27 00:16] LABS: Troponin I 0.138 ng/mL (< 0.028)
--- NOTE | 2018-03-27 02:34 | CON ---
DATE OF CONSULTATION: 03/26/2018 CONSULTING PHYSICIAN: Dr. Acuna. REASON FOR CONSULTATION: End-stage renal disease evaluation and care. REASON FOR ADMISSION: Shortness of breath. HISTORY OF PRESENT ILLNESS: This is a 58-year-old male with history of end-stage renal disease, on hemodialysis; anemia, hyperlipidemia, type 2 diabetes, hypertension, came to the hospital with shortness of breath and Nephrology consult for emergent dialysis. The patient is to get his dialysis on Tuesday, Tuesday, Tuesday at [facility] in [place]. He usually compliant with fluid restriction. He was also found to have pleural effusion and currently is seen during dialysis and is tolerating well. No leg swelling, no fever, chills, no nausea or vomiting. PAST MEDICAL HISTORY: Positive for anemia, hyperlipidemia, end-stage renal disease, diabetes, and hypertension. PAST SURGICAL HISTORY: Right BKA, toe amputation, and dialysis access placement. HOME MEDICATIONS: 1. Amlodipine. 2. Gemfibrozil. 3. Levemir. 4. Coreg. 5. Aspirin. ALLERGIES: NO KNOWN DRUG ALLERGIES. SOCIAL HISTORY: No smoking, alcohol, or illicit drugs. FAMILY HISTORY: No history of any kidney disease. REVIEW OF SYSTEMS: CONSTITUTIONAL: Negative for weight loss or gain, ability to conduct usual activities. SKIN: Negative for rash, itching. EYES: Negative for double vision, pain. ENT/MOUTH: Negative for nose bleeding, neck stiffness, pain, tenderness. CARDIOVASCULAR: Negative for palpitations, dyspnea on exertion, orthopnea. RESPIRATORY: Negative for shortness of breath, wheezing, cough, hemoptysis, fever or night sweats. GASTROINTESTINAL: Negative for poor appetite, abdominal pain, heartburn, nausea, vomiting, constipation, or diarrhea. GENITOURINARY: Negative for urgency, frequency, dysuria, nocturia. MUSCULOSKELETAL: Negative for pain, swelling. NEUROLOGIC/PSYCHIATRIC: Negative for anxiety, depression. ALLERGY/IMMUNOLOGIC: Negative for skin rash, bleeding tendency. PHYSICAL EXAMINATION: GENERAL: This is a thin-built male, in no apparent distress. VITAL SIGNS: Temperature 98.6, pulse 78, respiratory rate 18, and blood pressure 164/94. HEENT: Atraumatic, normocephalic. Oral mucosa is dry. NECK: Supple. CARDIOVASCULAR: S1 and S2 heard. Rate and rhythm regular. RESPIRATORY: Clear. GASTROINTESTINAL: Abdomen is soft. MUSCULOSKELETAL: No evidence of edema. DERMATOLOGIC: No skin rash. NEUROLOGICAL: Alert and awake. PSYCHIATRIC: Normal mood and affect. LABORATORY DATA: Hemoglobin is 10.6, potassium 4.4, BUN is 44, and creatinine is 7.9. BNP is 2000. Chest x-ray with fluid overload. ASSESSMENT AND PLAN: 1. End-stage renal disease, plan is hemodialysis. The patient is seen during hemodialysis. 2. Anemia, mild. 3. Elevated BNP. 4. Fluid overload, remove fluid with dialysis. 5. Hypertension, remove fluid. Plan is to have dialysis. The patient is seen during dialysis, we will remove 3 liters of fluid today with 3-hour treatment and continue dialysis on Tuesday, Tuesday, and Tuesday. We will follow. Thank you for the consult. Job ID: [id number]
[2018-03-27] MEDS ORDERED: Gemfibrozil 600 MG TAB PO SCH (07:30)
[2018-03-27] MEDS ORDERED: Carvedilol 6.25 MG TAB PO SCH (08:00)
[2018-03-27] MEDS ORDERED: Amlodipine 10 MG TAB PO SCH (09:00)
[2018-03-27] MEDS ORDERED: Aspirin 325 MG TAB PO SCH (09:00)
[2018-03-27] MEDS ORDERED: Aspirin 325 MG TAB ONE (09:31)
--- NOTE | 2018-03-27 10:56 | PRG ---
DATE OF SERVICE: 03/27/2018 SUBJECTIVE: A 58-year-old gentleman being seen for end-stage renal disease. The patient denied any nausea, vomiting, or chest pain. OBJECTIVE: GENERAL: The patient is awake and alert. VITAL SIGNS: Pulse 70, breathing 16, and blood pressure was 170/80. GENERAL APPEARANCE AND MENTAL STATUS: Fair. HEAD/NECK: Normocephalic. Atraumatic. EYES: EOMI. No deformity. EARS: Clear. No ulcers. NOSE: Intact. No lesions. MOUTH: Clear. No discharge. THROAT: Clear. No exudate. LUNGS: Clear. No crackles. CARDIAC: S1, S2. No rub. ABDOMEN: Benign. Bowel sounds positive. GENITALIA/RECTUM: Prasad absent. BACK/EXTREMITIES: Edema 0+. NEUROLOGICAL: Alert and motor intact. SKIN: LYMPHATICS: LABORATORY DATA: No labs done today. ASSESSMENT AND PLAN: 1. Stage 6 chronic kidney disease, plan dialysis. 2. Hypertension, stable. 3. Anemia, stable. 4. Medications based on GFR appropriate. Job ID: [id number]
--- NOTE | 2018-03-28 09:51 | DIS ---
DATE OF ADMISSION: 03/26/2018 DATE OF DISCHARGE: 03/27/2018 DISCHARGE DIAGNOSES: 1. Acute dyspnea secondary to volume overload in the context of end-stage renal disease. 2. End-stage renal disease with volume overload, resolved after hemodialysis. 3. Prolonged QT interval, transient, resolved. 4. Anemia of chronic kidney disease. 5. Diabetes mellitus type 2, insulin requiring. 6. Chronic troponin I elevation secondary to end-stage renal disease. 7. Hypertension, stable. CONSULTATIONS: Dr. Joyner with Nephrology Service. PERTINENT LAB AND X-RAY FINDINGS: Creatinine 7.90, estimated GFR of 7, magnesium level 2.4. Troponin I ranged between 0.130 to 0.138. BNP 2013. CBC showed a hemoglobin of 11, hematocrit 31, platelet count 288. Portable chest x-ray dated 03/26/2018 showed small bilateral pleural effusions. HOSPITAL COURSE: The patient was observed after presenting with acute dyspnea in the context of volume overload with end-stage renal disease, requiring hemodialysis. The patient underwent urgent hemodialysis with appropriate volume removal at the direction of the Nephrology Service. The patient had approximately 3 L net removed during his hospital course with overall resolution of dyspnea. The patient was noted with mild troponin I elevation, however, this is chronic when compared with previous values dating back to 2018. Current recommendations are for outpatient followup with his primary courier for consideration of outpatient cardiac stress testing and evaluation. The patient was also noted with mild prolonged QT interval likely due to the end-stage renal disease and volume overload, resolving with hemodialysis. Overall, the patient did remain clinically stable throughout the hospital course, tolerating regular oral intake, voiding appropriately with stable vital signs. I have examined the patient at the time of discharge and discussed followup instructions. The patient verbalized understanding and agreement, ready for discharge on 03/27/2018. DISCHARGE MEDICATIONS: 1. Amlodipine 10 mg 1 tab p.o. daily. 2. Enteric-coated aspirin 81 mg p.o. daily. 3. Calcium carbonate 1000 mg p.o. t.i.d. 4. Lopid 600 mg p.o. b.i.d. 5. Levemir 26 units subcutaneously b.i.d. 6. Levothyroxine 112 mcg p.o. daily. 7. Lisinopril 2.5 mg p.o. daily. 8. Tramadol 50 mg 1 to 2 tablets p.o. q.i.d. p.r.n. 9. Carvedilol 12.5 mg p.o. b.i.d. FOLLOWUP: The patient may follow up with his primary care provider, Abigail Islas within 7 days of discharge. The patient may also follow up with Dr. Saul with [facility] and to call his office for appointment, time, and date. The patient may also follow up with Dr. Joyner with Nephrology Service for maintenance hemodialysis. CONDITION ON DISCHARGE: Stable. ACTIVITY: Ad-javier. DIET: ADA and heart healthy. CODE STATUS: Full. DISPOSITION: Home on 03/27/2018. Job ID: [id number]
== END 2018-03-27 11:17 | disposition home or self-care (01) ==
LOC: ERS 16:29 → ERHOLD 17:08
PROVIDERS: ADMIT Family Medicine; ATTEND Family Medicine
DX: I12.0 Hypertensive chronic kidney disease with stage 5 chronic kidney disease or end stage renal disease (principal); E11.22 Type 2 diabetes mellitus with diabetic chronic kidney disease; N18.6 End stage renal disease; D63.1 Anemia in chronic kidney disease; E87.70 Fluid overload, unspecified; E78.5 Hyperlipidemia, unspecified; E78.00 Pure hypercholesterolemia, unspecified; R79.89 Other specified abnormal findings of blood chemistry; Z79.4 Long term (current) use of insulin; Z79.82 Long term (current) use of aspirin; Z79.899 Other long term (current) drug therapy; Z89.422 Acquired absence of other left toe(s); Z89.511 Acquired absence of right leg below knee; Z99.2 Dependence on renal dialysis
CPT/HCPCS: 82962 ×2; 84484; 85730; 87340; 93306; 99285; G0378; 36415; 36416; 90935; G0257; J1644; J1825

== ENCOUNTER 2018-04-16 18:58 | Emergency (ER) | payer MEDICARE, OTHER ==
[2018-04-16 19:48] LABS: Anion Gap 22 mmol/L (10-20); BUN (Urea Nitrogen) 51 mg/dL (8.4-25.7); Calc. Creatinine Clearance 0 mL/min (70-130); Carbon Dioxide 26 mmol/L (22-29); Chloride 93 mmol/L (98-107); Estimated GFR-MDRD 8; Glucose 163 mg/dL (70-105); Potassium 5.6 mmol/L (3.5-5.1); Sodium 135 mmol/L (136-145)
--- NOTE | 2018-04-16 19:59 | RAD ---
CHEST ONE VIEW: HISTORY: Dyspnea. COMPARISON: 04/09/2018 FINDINGS: Right venous access catheter. There are bilateral pleural effusions, as well as some bilateral mostl y mid and lower lung zone interstitial and alveolar opacity changes. Possibilities include that of v mauricio asymmetric edema versus bibasilar pneumonia. Correlate clinically. The upper lungs zones are cl ear. IMPRESSION: New interstitial and alveolar opacity changes in the mid and lower lung zones with bilateral pleural effusions since prior study, concerning for very asymmetric edema versus developing bilateral lower l obe pneumonia. POS: [facility]
[2018-04-16 20:05] LABS: #Eosinphils 0.2 thou/uL (0.0-0.7); #Lymphocytes 1.6 thou/uL (1.20-3.40); #Monocytes 0.4 thou/uL (0.11-0.59); #Neutrophils 3.6 thou/uL (1.40-6.50); %Basophils 0.8 % (0.0-1.0); %Eosinophils 3.7 % (0.0-10.0); %Lymphocytes 27.6 % (21.0-51.0); %Monocytes 6.5 % (0.0-10.0); %Neutrophils 61.4 % (42.0-75.0); Hemoglobin 9.3 g/dL (14.0-18.0); Mean Corpuscular Hemoglobin 30.9 pg (27.0-31.0); Mean Corpuscular Volume 90.7 fL (78.0-98.0); Mean Platelet Volume 7.9 fL (7.4-10.4); Platelet Count 292 thou/uL (130-400); RBC Distribution Width 14.7 % (11.5-14.5); Red Blood Cell (RBC) Count 3.02 mill/uL (4.70-6.10); White Blood Cell (WBC) Count 5.9 thou/uL (4.8-10.8)
[2018-04-16 20:35] LABS: CKMB 1.2 ng/mL (0-6.6)
[2018-04-16 23:22] LABS: CKMB 0.9 ng/mL (0-6.6)
== END 2018-04-16 23:33 | disposition home or self-care (01) ==
LOC: ERS 18:58
DX: N18.6 End stage renal disease (principal); R79.89 Other specified abnormal findings of blood chemistry; D64.9 Anemia, unspecified; E03.9 Hypothyroidism, unspecified; E78.5 Hyperlipidemia, unspecified; E11.9 Type 2 diabetes mellitus without complications; I10 Essential (primary) hypertension; Z79.899 Other long term (current) drug therapy
CPT/HCPCS: 36415; 71045; 80048; 82553; 83880; 84484; 85025; 93005

== ENCOUNTER 2018-04-29 12:24 | Emergency (ER) | payer MEDICARE, OTHER ==
[2018-04-29] MEDS ORDERED: Dexamethasone 4 mg/ml Vial ONE (13:04)
--- NOTE | 2018-04-29 15:12 | RAD ---
FRONTAL VIEW CHEST: Date; 04/29/18 COMPARISON: 04/16/18. CLINICAL INDICATION: Nonproductive cough for 1 week. FINDINGS: There is a right chest port again demonstrated. Prior right basilar density has largely resolved with mild residual density remaining at the right lung base. There is blunting of each costophrenic sulcu s indicating small volume pleural fluid. Cardiac silhouette is mildly prominent. There is slight prom inence of the central pulmonary vasculature. IMPRESSION: 1. Interval improvement of right basilar density with mild residua remaining. 2. Small volume bilateral pleural fluid. POS: [facility]
== END 2018-04-29 14:16 | disposition home or self-care (01) ==
LOC: ERS 12:24
DX: R05 Cough (principal); D64.9 Anemia, unspecified; E03.9 Hypothyroidism, unspecified; E11.9 Type 2 diabetes mellitus without complications; E78.5 Hyperlipidemia, unspecified; I10 Essential (primary) hypertension; N28.9 Disorder of kidney and ureter, unspecified; Z79.899 Other long term (current) drug therapy
CPT/HCPCS: 71046; J1100

== ENCOUNTER 2018-05-02 10:10 | Day surgery (SDC) | payer MEDICARE, MEDICAID ==
--- NOTE | 2018-04-21 11:59 | HP ---
HISTORY OF PRESENT ILLNESS: Wilton Tafoya is a 58-year-old male patient, dialyzes Tuesday, Tuesday, and Tuesday at [facility]. He dialyzed using the right IJ catheter. He had a left arm fistula placed in November of 2017 and the fistulogram on 02/21/2018. Fistulogram revealed outflow basilic and cephalic vein without significant collaterals. It was hoped that his cephalic vein fistula matures such that he could utilize it, but they were not able to access it. Plan at this time is to revise a left arm fistula under general anesthesia with ligation of basilic vein outflow to direct outflow in the cephalic vein upper arm to facilitate maturation and usage and removal of HD catheter in the future. MEDICATIONS: 1. Amlodipine 10 mg daily. 2. Levothyroxine daily. 3. Gemfibrozil daily. 4. Atorvastatin daily. 5. Insulin subcu. 6. Ferrous gluconate. PAST MEDICAL HISTORY: Diabetes mellitus, hypertension, hypothyroidism, hypertriglyceridemia, end-stage renal disease, on maintenance dialysis. PAST SURGICAL HISTORY: Left foot surgery, right foot surgery, right BKA, left transmetatarsal amputations, left AV fistula in June 2017, left AVF revision in 2017, fistulogram in February 2018. TOBACCO: None. ALCOHOL: None. PHYSICAL EXAMINATION: VITAL SIGNS: 151 pounds, 75 inches, 166/66, 59, 98.6 degrees. HEAD, EARS, EYES, NOSE, AND THROAT: Unremarkable. LUNGS: Clear to auscultation. CARDIAC: Regular rate and rhythm without murmur or gallop. ABDOMEN: Soft and nontender. No masses. EXTREMITIES: Unremarkable. Amputation as noted above. Left arm fistula good thrill and bruit. ASSESSMENT AND PLAN: Left arm fistula, unable to access. We will plan revision without thrombectomy with ligation of his basilic vein outflow just above the antecubital fossa to direct all flow into the cephalic vein to facilitate access and allow removal of HD catheter in the near future outpatient. Job ID: [id number]
[2018-05-01 13:20] VITALS: BMI 19.3
[2018-05-02 10:44] LABS: #Eosinphils 0.1 thou/uL (0.0-0.7); #Lymphocytes 1.1 thou/uL (1.20-3.40); #Monocytes 0.5 thou/uL (0.11-0.59); #Neutrophils 3.1 thou/uL (1.40-6.50); %Basophils 0.5 % (0.0-1.0); %Lymphocytes 23.1 % (21.0-51.0); %Monocytes 10.7 % (0.0-10.0); %Neutrophils 62.7 % (42.0-75.0); Hemoglobin 9.1 g/dL (14.0-18.0); Mean Corpuscular Hemoglobin 29.4 pg (27.0-31.0); Mean Corpuscular Volume 91.9 fL (78.0-98.0); Mean Platelet Volume 7.2 fL (7.4-10.4); Platelet Count 225 thou/uL (130-400); RBC Distribution Width 15.1 % (11.5-14.5); Red Blood Cell (RBC) Count 3.09 mill/uL (4.70-6.10); White Blood Cell (WBC) Count 4.9 thou/uL (4.8-10.8)
[2018-05-02 11:04] LABS: Anion Gap 17 mmol/L (10-20); BUN (Urea Nitrogen) 31 mg/dL (8.4-25.7); Calc. Creatinine Clearance 15 mL/min (70-130); Calcium 8.9 mg/dL (7.8-10.44); Carbon Dioxide 29 mmol/L (22-29); Chloride 97 mmol/L (98-107); Estimated GFR-MDRD 12; Potassium 3.6 mmol/L (3.5-5.1); Sodium 139 mmol/L (136-145)
[2018-05-02 11:08] LABS: Glucose 55 mg/dL (70-105)
[2018-05-02] MEDS ORDERED: Dextrose 50% Abboject 50 ML SYRINGE ONE (11:18)
[2018-05-02] MEDS ORDERED: Midazolam HCl 2 mg/2 ml Vial ONE (11:48)
[2018-05-02] MEDS ORDERED: Fentanyl 100 MCG/2 ML VIAL ONE (11:48)
[2018-05-02] MEDS ORDERED: Bupivacaine HCl 0.5%/Epinephrine 1:200,000/PF 30 ml Vial ONE ×2 (11:52→13:41)
[2018-05-02] MEDS ORDERED: Lidocaine 2% PF 5 ML VIAL ONE (11:52)
[2018-05-02] MEDS ORDERED: Heparin 5,000 UNITS/ML VIAL ONE (11:52)
[2018-05-02] MEDS ORDERED: Protamine Sulfate 50 MG/5 ML VIAL ONE (11:52)
[2018-05-02] MEDS ORDERED: Heparin 10,000 UNITS/ 10 ML VIAL ONE (15:01)
[2018-05-02] MEDS ORDERED: PROPOFOL 200 MG/20 ML VIAL ONE (15:03)
--- NOTE | 2018-05-02 16:22 | OP ---
DATE OF PROCEDURE: 05/02/2018 PREOPERATIVE DIAGNOSES: 1. End-stage renal disease. 2. Dysfunctional fistula, left upper arm, in need of revision. POSTOPERATIVE DIAGNOSES: 1. End-stage renal disease. 2. Dysfunctional fistula, left upper arm, in need of revision. PROCEDURE PERFORMED: Ligation of basilic vein outflow, maintain out flow through the cephalic vein upper arm. ANESTHESIA: Regional TIVA. ESTIMATED BLOOD LOSS: Less than 5 mL. DESCRIPTION OF PROCEDURE: The patient was taken to the operating room, where under regional anesthesia and intravenous sedation, left upper extremity was prepared with ChloraPrep and draped in routine fashion. An incision was made in the skin and subcutaneous tissue through the old scar in the proximal volar forearm longitudinally and beneath the antecubital fossa. A portion of this incision was opened and basilic and cephalic vein outflow identified, basilic vein identified and clamped and noting good Doppler signal in the cephalic vein outflow improved on basilic vein compression. Basilic vein was ligated with a 2-0 silk tie. Subcutaneous tissue was approximated with 3-0 Monocryl, skin with subdermal 4-0 Monocryl, and [place] glue applied. The patient tolerated the procedure well without complication. Job ID: [id number]
--- NOTE | 2018-05-03 08:02 | EKG ---
Test Reason : PREOP Blood Pressure : / mmHG Vent. Rate : 051 BPM Atrial Rate : 051 BPM P-R Int : 168 ms QRS Dur : 096 ms QT Int : 552 ms P-R-T Axes : 066 062 070 degrees QTc Int : 508 ms Sinus bradycardia Prolonged QT Abnormal ECG When compared with ECG of 16-APR-2018 19:25, Nonspecific T wave abnormality, improved in Inferior leads Confirmed by ONESIMO GROSS ([id number]) on 05/03/2018 8:02:21 AM Referred By: ROSE Confirmed By:ONESIMO GROSS
== END 2018-05-02 15:40 | disposition home or self-care (01) ==
LOC: SDC 10:10
PROVIDERS: ATTEND Specialist
PROC: 05LC0ZZ Occlusion of Left Basilic Vein, Open Approach (ICD-10-PCS; principal; 2018-05-02)
DX: T82.510A Breakdown (mechanical) of surgically created arteriovenous fistula, initial encounter (principal); I12.0 Hypertensive chronic kidney disease with stage 5 chronic kidney disease or end stage renal disease; E11.22 Type 2 diabetes mellitus with diabetic chronic kidney disease; N18.6 End stage renal disease; Z99.2 Dependence on renal dialysis; E03.9 Hypothyroidism, unspecified; E78.1 Pure hyperglyceridemia; Z89.511 Acquired absence of right leg below knee; Z79.4 Long term (current) use of insulin; Z79.82 Long term (current) use of aspirin; Z79.899 Other long term (current) drug therapy; Z98.890 Other specified postprocedural states
CPT/HCPCS: 36416; 80048; 85025; 93005; 93010; J0670; J1644; J2001; J2250; J2704; J2720; J3010

== ENCOUNTER 2018-05-14 10:00 | Inpatient (IN) | payer MEDICARE, MEDICAID ==
[2018-05-14 11:01] LABS: #Eosinphils 0.3 thou/uL (0.0-0.7); #Lymphocytes 1.7 thou/uL (1.20-3.40); #Monocytes 0.4 thou/uL (0.11-0.59); #Neutrophils 7.5 thou/uL (1.40-6.50); %Basophils 0.3 % (0.0-1.0); %Eosinophils 2.9 % (0.0-10.0); %Lymphocytes 16.9 % (21.0-51.0); %Monocytes 4.2 % (0.0-10.0); %Neutrophils 75.7 % (42.0-75.0); Hemoglobin 11.7 g/dL (14.0-18.0); Mean Corpuscular HGB CONC 32.1 g/dL (32.0-36.0); Mean Corpuscular Hemoglobin 29.3 pg (27.0-31.0); Mean Corpuscular Volume 91.5 fL (78.0-98.0); Platelet Count 381 thou/uL (130-400); RBC Distribution Width 15.8 % (11.5-14.5); Red Blood Cell (RBC) Count 3.98 mill/uL (4.70-6.10); White Blood Cell (WBC) Count 9.9 thou/uL (4.8-10.8)
[2018-05-14] MEDS ORDERED: Heparin 1,000 UNITS/ML VIAL ONE (11:11)
[2018-05-14 11:26] LABS: ALT (SGPT) Less than 7 U/L (8-55); AST (SGOT) 12 U/L (5-34); Albumin 3.9 g/dL (3.5-5.0); Alkaline Phosphatase 61 U/L (40-150); Anion Gap 22 mmol/L (10-20); BUN (Urea Nitrogen) 50 mg/dL (8.4-25.7); Bilirubin, Total 0.4 mg/dL (0.2-1.2); CK (CPK) 34 U/L (30-200); Calc. Creatinine Clearance 0 mL/min (70-130); Calcium 9.6 mg/dL (7.8-10.44); Carbon Dioxide 23 mmol/L (22-29); Chloride 96 mmol/L (98-107); Estimated GFR-MDRD 9; Globulin 3.4 g/dL (2.4-3.5); Glucose 97 mg/dL (70-105); Potassium 5.5 mmol/L (3.5-5.1); Protein, Total 7.3 g/dL (6.0-8.3); Sodium 135 mmol/L (136-145)
--- NOTE | 2018-05-14 11:35 | RAD ---
PORTABLE AP CHEST: Date: 05/14/18 HISTORY: Dyspnea. COMPARISON: 05/07/18. FINDINGS: A tunneled right internal jugular vein hemodialysis catheter remains in place. There are small bilate ral pleural effusions, but there is also parenchymal density at the right lung base, which may be rel ated to associated pneumonia. There is mild increase in perihilar interstitial densities, similar to the prior study. IMPRESSION: 1. Findings suggesting pulmonary edema with mild increase in perihilar interstitial markings bilater ally. 2. Pleural and parenchymal changes right lung base likely related to right pleural effusion, but the parenchymal changes are worrisome for developing pneumonia, and follow-up to resolution is recommend ed. 3. Small left pleural effusion. POS: PATY
[2018-05-14 11:48] LABS: CKMB 1.4 ng/mL (0-6.6)
[2018-05-14 14:14] LABS: Troponin I 0.174 ng/mL (< 0.028)
[2018-05-14 14:44] LABS: Hep B Surf Ag Non-Reactive S/CO (NonReactive)
[2018-05-14 14:45] LABS: HBSAB Concentration 1.02 mIU/mL; HBSAg Index 0.16 S/CO (0-0.99); Hep B Surf AB Non-Reactive (NonReactive)
[2018-05-14] MEDS ORDERED: Acetaminophen 325 MG TAB PO PRN (15:20)
[2018-05-14] MEDS ORDERED: Furosemide 100 MG/10 ML VIAL SLOW IVP SCH (15:30)
[2018-05-14] MEDS ORDERED: HumaLOG 300 UNITS/3 ML VIAL SC PRN (16:37)
[2018-05-14] MEDS ORDERED: Dextrose 5% in Water 1,000 ML IV PRN (16:37)
[2018-05-14] MEDS ORDERED: traMADol HCl 50 MG TAB PO PRN (16:37)
[2018-05-14] MEDS ORDERED: Dextrose 50% Abboject 50 ML SYRINGE SLOW IVP PRN (16:37)
[2018-05-14] MEDS ORDERED: Benzonatate 100 MG CAP PO PRN (16:37)
[2018-05-14 17:10] LABS: Troponin I 0.139 ng/mL (< 0.028)
[2018-05-14] MEDS ORDERED: Non-Formulary Item 1 EACH (Levemir Flexpen [Levemir Flexpen] 26 UNIT) SC SCH (21:00)
[2018-05-14] MEDS: Calcium Carbonate 500 MG ChewTAB PO SCH (21:07)
[2018-05-14] MEDS: Carvedilol 6.25 MG TAB PO SCH (21:07)
[2018-05-14] MEDS: Gemfibrozil 600 MG TAB PO SCH (21:09)
[2018-05-14] MEDS: Atorvastatin Calcium 20 MG TAB PO SCH (21:09)
[2018-05-14] MEDS: Insulin Glargine 26 UNITS in Pre-Filled Syringe 1 EACH SC SCH (21:12)
--- NOTE | 2018-05-14 22:08 | HP ---
CHIEF COMPLAINT: Shortness of breath. HISTORY OF PRESENT ILLNESS: This patient is a 58-year-old male with a history of end-stage renal disease, on dialysis. The patient reports that he basically is only getting ultrafiltration and not typically getting significant volume removal with his dialysis. The patient was here previously with volume overload and states at that time, they took about 3 L of fluid off him. He reports that in the last 3-4 weeks he has been having increasing shortness of breath and orthopnea. He has amputations, is not ambulating great deal, but exertion does make it worse. He has a dry cough, it is obviously nonproductive. He has had no fevers or chills. The patient does continue to have some urine output and takes Lasix on his non dialysis days. He has denied any specific chest pain or any significant peripheral edema. REVIEW OF SYSTEMS: The patient reports normal sleep, appetite and bowel habits. All other systems were reviewed and all pertinent positives and negatives noted in the history of present illness. PAST MEDICAL HISTORY: Notable for diabetes mellitus, hypertension, hyperlipidemia, end-stage renal disease, prior history of volume overload. Of note, the patient had an echocardiogram performed previously with an EF of 50% to 55% with impaired relaxation compatible with diastolic dysfunction. PAST SURGICAL HISTORY: Right BKA, left toe amputations, right forearm shunt with subsequent partial occlusion, right subclavian dialysis port placed about 6 or 7 months ago due to clotting of the left forearm shunt. FAMILY HISTORY: Father of cancer and liver disease. SOCIAL HISTORY: The patient lives with his girlfriend of 15 years. He is a nonsmoker, nondrinker, and nondrug user. He is full code and his girlfriend, Stacey at [phone] is his surrogate decision maker. ALLERGIES: NONE. HOME MEDICATIONS: 1. Tramadol 50 mg 1-2 p.o. q.i.d. p.r.n. pain. 2. Zocor 40 mg at bedtime. 3. Synthroid 125 mcg daily. 4. Levemir FlexPen 26 units b.i.d. 5. Lopid 600 mg b.i.d. 6. Lasix 80 mg daily. 7. Coreg 12.5 b.i.d. 8. Calcium in the form of Tums 1000 mg p.o. t.i.d. 9. Tessalon 100 mg p.o. t.i.d. 10. Aspirin 81 mg p.o. q.a.m. 11. Amlodipine 10 mg p.o. q.a.m. PHYSICAL EXAMINATION: VITAL SIGNS: Temperature 98.2, pulse 72, respirations 18, O2 saturation 95, BP 194/88. GENERAL APPEARANCE: Age-appropriate male, in no distress. He is awake, alert, oriented, pleasant, and cooperative. HEENT: PERRL. No OP lesions. NECK: Supple and symmetric. HEART: Regular rate and rhythm without murmurs, gallops, rubs. LUNGS: Clear to auscultation except for bibasilar rales. He has no wheezes. ABDOMEN: Soft, nontender, and nondistended. Positive bowel sounds. No hepatosplenomegaly. EXTREMITIES: Reveal a right BKA with a prosthesis sleeve in place. Left lower extremity has some chronic firm skin and decreased pulses at the dorsalis pedis and posterior tibial. LABORATORY DATA: White count 9.9, hemoglobin 11.7, platelets 381. Sodium 135, potassium 5.5, chloride is 96, CO2 of 23, BUN 50, creatinine 6.29, glucose 97, AST 12, ALT 7, CK 34, troponin is 0.181, subsequent is 0.174. BNP 3957. Hepatitis B antigen negative. Chest x-ray shows evidence of a pulmonary edema with increased perihilar interstitial markings bilaterally, pleural and parenchymal changes of the right lung base, likely related to pleural effusion, but developing pneumonia could not be ruled out, small left pleural effusion. IMPRESSION AND PLAN: 1. Volume overload. The patient has been compliant with his dialysis, but does have some evidence of a diastolic dysfunction and given the fact that he is on ultrafiltration typically and requiring some Lasix every other day with a BNP this high, I suspect this is a large component of heart failure. 2. Acute on chronic diastolic heart failure. The patient will be given a dose of IV Lasix today 80 mg to see if we can get him to pull some volume off. He will need dialysis with some volume removal most likely. 3. End-stage renal disease with volume overload. Again, dialysis will need to be performed, Nephrology is consulted. 4. Elevated troponins. The patient has a history of chronically elevated troponins, likely secondary to decompensated diastolic heart failure and end-stage renal disease. 5. Hyperkalemia, mild, should be resolved with dialysis. 6. Diabetes mellitus. Continue with his usual home insulin regimen. We will order Accu-Cheks and sliding scale as needed. 7. Hyperlipidemia. Continue with the Zocor. 8. Hypothyroidism. Continue his home Synthroid. 9. Hypertension. Continue amlodipine and Coreg. Job ID: [id number]
[2018-05-15] MEDS ORDERED: Furosemide 100 MG/10 ML VIAL SLOW IVP SCH (00:45)
--- NOTE | 2018-05-15 01:51 | CON ---
DATE OF CONSULTATION: 05/14/2018 REASON FOR CONSULTATION: End-stage renal disease and pulmonary edema. HISTORY OF PRESENT ILLNESS: This is a very pleasant 58-year-old gentleman, who presented to the hospital after noting to have increased shortness of breath and pulmonary edema. The patient denies headache, numbness, tingling, or chest pain. PAST MEDICAL HISTORY: Hypertension, end-stage renal disease, AV fistula tunneled dialysis catheter, history of right BKA, history of toe amputations in the left foot, multiple dialysis access. SOCIAL HISTORY: No alcohol or drug use. FAMILY HISTORY: Negative for ESRD. ALLERGIES: REVIEWED. REVIEW OF SYSTEMS: A 15-point review of system was performed, negative except for positive noted above. GENERAL: HEAD: NECK: No swelling or lumps. NOSE: No epistaxis or discharge. EYES: No diplopia or pain. RESPIRATORY: CARDIOVASCULAR: GASTROINTESTINAL: /COMBINATION MAN: MUSCULOSKELETAL: No joint pain. NEUROPSYCHIATIC SYSTEMS: No suicidal ideation. No ideation. SKIN: Denies any rash or ulcer. CONSTITUTIONAL: No fever or chills. FAMILY HISTORY: Negative for ESRD. PHYSICAL EXAMINATION: GENERAL: The patient is awake and alert. VITAL SIGNS: Afebrile, pulse 75, breathing 16, blood pressure 130/70. GENERAL APPEARANCE AND MENTAL STATUS: Fair. HEAD/NECK: Normocephalic. Atraumatic. EYES: EOMI. No deformity. EARS: Clear. No ulcers. NOSE: Intact. No lesions. MOUTH: Clear. No discharge. THROAT: Clear. No exudate. LUNGS: Clear. No crackles. CARDIAC: S1, S2. No rub. ABDOMEN: Benign. Bowel sounds positive. GENITALIA/RECTUM: Prasad absent. BACK/EXTREMITIES: Edema 0+. NEUROLOGICAL: Alert and motor intact. SKIN: LYMPHATICS: LABORATORY DATA: Labs reviewed. ASSESSMENT AND PLAN: 1. Stage 6 chronic kidney disease. Plan hemodialysis. 2. Hyperkalemia. Plan dialysis. 3. Anemia, plan dialysis. 4. Medication based on GFR, appropriate. Job ID: [id number]
[2018-05-15] MEDS: Levothyroxine Sodium 125 MCG TAB PO SCH (04:49)
[2018-05-15 06:01] LABS: Anion Gap 20 mmol/L (10-20); BUN (Urea Nitrogen) 39 mg/dL (8.4-25.7); Calc. Creatinine Clearance 14 mL/min (70-130); Calcium 9.8 mg/dL (7.8-10.44); Carbon Dioxide 27 mmol/L (22-29); Chloride 95 mmol/L (98-107); Estimated GFR-MDRD 12; Glucose 141 mg/dL (70-105); Potassium 4.7 mmol/L (3.5-5.1); Sodium 137 mmol/L (136-145)
[2018-05-15] MEDS: Calcium Carbonate 500 MG ChewTAB PO SCH ×3 (08:38→17:45)
[2018-05-15] MEDS: Amlodipine 10 MG TAB PO SCH (08:39)
[2018-05-15] MEDS: Carvedilol 6.25 MG TAB PO SCH ×2 (08:39→20:32)
[2018-05-15] MEDS: Furosemide 80 MG TAB PO SCH (08:39)
[2018-05-15] MEDS: Gemfibrozil 600 MG TAB PO SCH ×2 (08:39→20:32)
[2018-05-15] MEDS: Aspirin 81 mg Enteric Coated Tablet PO SCH (08:39)
[2018-05-15] MEDS ORDERED: Insulin Glargine 26 UNITS in Pre-Filled Syringe 1 EACH SC SCH (09:00)
--- NOTE | 2018-05-15 09:50 | PRG ---
DATE OF SERVICE: 05/15/2018 SUBJECTIVE: A 58-year-old gentleman being seen for end-stage kidney disease. The patient denies nausea, vomiting, or chest pain. OBJECTIVE: CONSTITUTIONAL: The patient is awake and alert. VITAL SIGNS: Afebrile, pulse breathing 16, blood pressure . GENERAL APPEARANCE AND MENTAL STATUS: Fair. HEAD/NECK: Normocephalic. Atraumatic. EYES: EOMI. No deformity. EARS: Clear. No ulcers. NOSE: Intact. No lesions. MOUTH: Clear. No discharge. THROAT: Clear. No exudate. LUNGS: Clear. No crackles. CARDIAC: S1, S2. No rub. ABDOMEN: Benign. Bowel sounds positive. GENITALIA/RECTUM: Prasad absent. BACK/EXTREMITIES: Edema 0+. NEUROLOGICAL: Alert and motor intact. SKIN: LYMPHATICS: LABORATORY DATA: Labs reviewed. ASSESSMENT AND RECOMMENDATIONS: 1. Stage 6 chronic kidney disease, plan dialysis. 2. Hypertension, stable. 3. Anemia, stable. 4. Medications based on GFR appropriate. Job ID: [id number]
[2018-05-15 10:04] VITALS: BMI 17.5
--- NOTE | 2018-05-15 17:38 | PDOC.PN ---
- Subjective Encounter Start Date: 05/15/18 Encounter Start Time: 17:36 Subjective: liteheaded, BP 70 sys at HD - Objective Resuscitation Status - Order Detail: 05/14/18 15:20 Resuscitation Status Routine Resuscitation Status: FULL: Full Resuscitation Vital Signs & Weight: Vital Signs (12 hours) Temp Pulse Resp BP Pulse Ox 05/15/18 17:00 97.6 F 56 L 16 140/65 93 L 05/15/18 11:16 97.8 F 67 20 157/74 H 92 L 05/15/18 10:12 93 L 05/15/18 10:09 93 L 05/15/18 08:39 66 05/15/18 07:42 97.8 F 66 16 172/83 H 96 Weight Admit Weight 145 lb 8 oz Weight 140 lb 1.6 oz I&O: 05/14/18 05/15/18 05/16/18 06:59 06:59 06:59 Intake Total 50 Output Total 7425 2800 Balance -6101 -8117 Result Diagrams: 05/14/18 10:48 05/15/18 04:47 Additional Labs: Accuchecks 05/15/18 05/15/18 05/15/18 17:03 15:24 11:20 POC Glucose 103 99 132 H 05/14/18 20:52 POC Glucose 168 H Phys Exam - Physical Examination skin cold, clammy Neck: no JVD unable to sit up, rales lateral bases Cardiovascular: RRR, no significant murmur Gastrointestinal: soft, positive bowel sounds Musculoskeletal: no edema Dx/Plan (1) Volume overload Code(s): E87.70 - FLUID OVERLOAD, UNSPECIFIED Status: Acute Qualifiers: Hypervolemia type: other Qualified Code(s): E87.79 - Other fluid overload (2) PNA (pneumonia) Code(s): J18.9 - PNEUMONIA, UNSPECIFIED ORGANISM Status: Acute Qualifiers: Pneumonia type: due to unspecified organism Laterality: right Lung location: lower lobe of lung Qualified Code(s): J18.1 - Lobar pneumonia, unspecified organism (3) End stage chronic kidney disease Code(s): N18.6 - END STAGE RENAL DISEASE Status: Acute (4) HTN (hypertension) Code(s): I10 - ESSENTIAL (PRIMARY) HYPERTENSION Status: Chronic Qualifiers: Hypertension type: essential hypertension Qualified Code(s): I10 - Essential (primary) hypertension (5) Diabetes mellitus type 2 Code(s): E11.9 - TYPE 2 DIABETES MELLITUS WITHOUT COMPLICATIONS Status: Chronic (6) HLD (hyperlipidemia) Code(s): E78.5 - HYPERLIPIDEMIA, UNSPECIFIED Status: Chronic Qualifiers: Hyperlipidemia type: pure hypercholesterolemia Qualified Code(s): E78.00 - Pure hypercholesterolemia, unspecified; E78.0 - Pure hypercholesterolemia - Plan initial cxr suggests PNA. will get FU cxr, obtain blood C&S -: rocephin/zithromax iv now * .
[2018-05-15] MEDS ORDERED: cefTRIAXone\\ROCEPHIN 1 GM in Sodium Chloride 0.9% 100 ML IVPB SCH (17:45)
[2018-05-15] MEDS ORDERED: Azithromycin 500 MG in Sodium Chloride 0.9% 250 ML 250 ML IVPB SCH (18:00)
--- NOTE | 2018-05-15 19:04 | RAD ---
CHEST ONE VIEW: Comparison: 05-14-18 History: CHF versus pneumonia. FINDINGS: Stable right sided hemisplit dialysis catheter. Atherosclerosis of the aorta. Normal cardia c silhouette. The pulmonary vessels are within normal limits. There are persistent bibasilar pleural and parenchymal opacities. Degree of opacification has slightly decreased. No pneumothorax. IMPRESSION: Improving congestive heart failure. Continued surveillance to ensure resolution is recommended. POS: PATY
[2018-05-15] MEDS: Atorvastatin Calcium 20 MG TAB PO SCH (20:32)
[2018-05-15] MEDS: Insulin Glargine 26 UNITS in Pre-Filled Syringe 1 EACH SC SCH (20:33)
[2018-05-16] MEDS: Levothyroxine Sodium 125 MCG TAB PO SCH (05:02)
--- NOTE | 2018-05-16 08:20 | PDOC.PN ---
- Subjective Encounter Start Date: 05/16/18 Encounter Start Time: 08:18 Subjective: weak - Objective Resuscitation Status - Order Detail: 05/14/18 15:20 Resuscitation Status Routine Resuscitation Status: FULL: Full Resuscitation MAR Reviewed: Yes Vital Signs & Weight: Vital Signs (12 hours) Temp Pulse Resp BP BP Pulse Ox 05/16/18 07:35 97.6 F 62 16 181/77 H 95 05/16/18 06:17 97.4 F L 05/16/18 04:30 96.6 F L 05/16/18 04:11 96.1 F L 46 L 18 151/71 H 98 05/15/18 22:00 98.6 F 47 L 16 114/59 L 92 L 05/15/18 20:32 183/79 H Weight Admit Weight 145 lb 8 oz Weight 130 lb 1.164 oz I&O: 05/15/18 05/16/18 05/17/18 06:59 06:59 06:59 Intake Total 50 100 Output Total 9923 6320 Balance -8366 -3046 Result Diagrams: 05/14/18 10:48 05/15/18 04:47 Additional Labs: Accuchecks 05/16/18 05/16/18 05/16/18 06:17 04:57 04:14 POC Glucose 202 H 173 H 60 L 05/15/18 05/15/18 05/15/18 20:47 17:03 15:24 POC Glucose 289 H 103 99 05/15/18 11:20 POC Glucose 132 H Radiology Reviewed by me: Yes (cxr- persistent RLL infiltrate) Phys Exam - Physical Examination Neck: no JVD rales right post lower lung field, OQW clear Cardiovascular: RRR, no significant murmur Gastrointestinal: soft, positive bowel sounds Musculoskeletal: no edema Dx/Plan (1) Volume overload Code(s): E87.70 - FLUID OVERLOAD, UNSPECIFIED Status: Acute Qualifiers: Hypervolemia type: other Qualified Code(s): E87.79 - Other fluid overload (2) PNA (pneumonia) Code(s): J18.9 - PNEUMONIA, UNSPECIFIED ORGANISM Status: Acute Qualifiers: Pneumonia type: due to unspecified organism Laterality: right Lung location: lower lobe of lung Qualified Code(s): J18.1 - Lobar pneumonia, unspecified organism (3) End stage chronic kidney disease Code(s): N18.6 - END STAGE RENAL DISEASE Status: Acute (4) HTN (hypertension) Code(s): I10 - ESSENTIAL (PRIMARY) HYPERTENSION Status: Chronic Qualifiers: Hypertension type: essential hypertension Qualified Code(s): I10 - Essential (primary) hypertension (5) Diabetes mellitus type 2 Code(s): E11.9 - TYPE 2 DIABETES MELLITUS WITHOUT COMPLICATIONS Status: Chronic (6) HLD (hyperlipidemia) Code(s): E78.5 - HYPERLIPIDEMIA, UNSPECIFIED Status: Chronic Qualifiers: Hyperlipidemia type: pure hypercholesterolemia Qualified Code(s): E78.00 - Pure hypercholesterolemia, unspecified; E78.0 - Pure hypercholesterolemia - Plan change to inpt -: cont iv rocephin,zithromax -: HD per renal -: ho to assess LVEF * .
[2018-05-16] MEDS: Gemfibrozil 600 MG TAB PO SCH ×2 (09:00→21:28)
[2018-05-16] MEDS: Furosemide 80 MG TAB PO SCH (09:00)
[2018-05-16] MEDS: Carvedilol 6.25 MG TAB PO SCH ×2 (09:01→16:34)
[2018-05-16] MEDS: Amlodipine 10 MG TAB PO SCH (09:01)
[2018-05-16] MEDS: Calcium Carbonate 500 MG ChewTAB PO SCH ×3 (09:03→16:34)
[2018-05-16] MEDS: Insulin Glargine 21 UNITS in Pre-Filled Syringe 1 EACH SC SCH ×2 (09:03→22:45)
[2018-05-16] MEDS: Aspirin 81 mg Enteric Coated Tablet PO SCH (09:03)
[2018-05-16] MEDS: Azithromycin 500 MG in Sodium Chloride 0.9% 250 ML 250 ML IVPB SCH (09:56)
--- NOTE | 2018-05-16 11:30 | PRG ---
DATE OF SERVICE: 05/16/2018 SUBJECTIVE: A 58-year-old gentleman being seen for end-stage renal disease. The patient denies nausea, vomiting, or chest pain. OBJECTIVE: See above. CONSTITUTIONAL: Awake, alert, in no acute distress. VITAL SIGNS: Afebrile, pulse 82, breathing 16, blood pressure 181/71. GENERAL APPEARANCE AND MENTAL STATUS: Fair. HEAD/NECK: Normocephalic. Atraumatic. EYES: EOMI. No deformity. EARS: Clear. No ulcers. NOSE: Intact. No lesions. MOUTH: Clear. No discharge. THROAT: Clear. No exudate. LUNGS: Clear. No crackles. CARDIAC: S1, S2. No rub. ABDOMEN: Benign. Bowel sounds positive. GENITALIA/RECTUM: Prasad absent. BACK/EXTREMITIES: Edema 0+. NEUROLOGICAL: Alert and motor intact. SKIN: LYMPHATICS: ASSESSMENT AND PLAN: 1. Stage 6 chronic kidney disease, continue hemodialysis. 2. Hypertension, stable. 3. Anemia, stable. 4. Medications based on glomerular filtration rate appropriate. Job ID: [id number]
[2018-05-16] MEDS: cefTRIAXone\\ROCEPHIN 1 GM in Sodium Chloride 0.9% 100 ML IVPB SCH (12:15)
[2018-05-16] MEDS: Atorvastatin Calcium 20 MG TAB PO SCH (21:28)
[2018-05-16] MEDS: hydrALAZINE 20 MG/ML VIAL SLOW IVP PRN (21:29)
[2018-05-17] MEDS: Levothyroxine Sodium 125 MCG TAB PO SCH (05:28)
[2018-05-17] MEDS: Calcium Carbonate 500 MG ChewTAB PO SCH ×3 (11:07→17:52)
[2018-05-17] MEDS: Insulin Glargine 21 UNITS in Pre-Filled Syringe 1 EACH SC SCH ×2 (11:07→20:54)
[2018-05-17] MEDS: Carvedilol 6.25 MG TAB PO SCH (11:08)
--- NOTE | 2018-05-17 11:32 | PRG ---
DATE OF SERVICE: 05/17/2018 SUBJECTIVE: Patient was seen and examined at bedside and overnight events noted. Patient denies any shortness of breath or chest pain or palpitation. No history of nausea or vomiting or diarrhea or fever or chills or cramps. OBJECTIVE: GENERAL: This is a well-built male, in no apparent distress. VITAL SIGNS: Temperature 97.9. Heart rate 64. Respiratory rate 18. Blood pressure 174/79. HEENT: Atraumatic, normocephalic. Oral mucosa is moist NECK: Supple. CARDIOVASCULAR: S1, S2 heard. Rate and rhythm regular. RESPIRATORY: Clear to auscultation. GASTROINTESTINAL: Abdomen is soft. MUSCULOSKELETAL: No tenderness. No edema. DERMATOLOGIC: No skin rash. NEUROLOGIC: Alert and awake and oriented X3. No focal neurologic deficits. Moving all the extremities. PSYCHIATRIC: Mood and affect normal. LABORATORY DATA: Not done today. ASSESSMENT AND PLAN: 1. End-stage renal disease. Continue dialysis. 2. Hypertension. Blood pressure remains high with left ventricular hypertrophy. Plan is to increase medications as tolerated. We will increase carvedilol as heart rate is tolerated. We could add hydralazine also as needed. 3. Edema, controlled. We will remove fluid with dialysis as tolerated. 4. Anemia. Need aggressive control of his blood pressure. We will follow. Job ID: [id number]
[2018-05-17] MEDS: Amlodipine 10 MG TAB PO SCH (11:36)
[2018-05-17] MEDS: Furosemide 80 MG TAB PO SCH (11:39)
[2018-05-17] MEDS: cefTRIAXone\\ROCEPHIN 1 GM in Sodium Chloride 0.9% 100 ML IVPB SCH (11:39)
[2018-05-17] MEDS: Gemfibrozil 600 MG TAB PO SCH ×2 (11:39→20:52)
[2018-05-17] MEDS: Azithromycin 500 MG in Sodium Chloride 0.9% 250 ML 250 ML IVPB SCH (11:40)
[2018-05-17] MEDS: Aspirin 81 mg Enteric Coated Tablet PO SCH (11:40)
--- NOTE | 2018-05-17 12:44 | PDOC.PN ---
- Subjective Encounter Start Date: 05/17/18 Encounter Start Time: 12:43 Subjective: much better, less cough, sob - Objective Resuscitation Status - Order Detail: 05/14/18 15:20 Resuscitation Status Routine Resuscitation Status: FULL: Full Resuscitation MAR Reviewed: Yes Vital Signs & Weight: Vital Signs (12 hours) Temp Pulse Resp BP BP Pulse Ox 05/17/18 11:36 62 177/76 H 05/17/18 11:08 197/77 H 05/17/18 07:47 97.9 F 65 18 186/79 H 97 05/17/18 04:00 97.9 F 65 18 174/79 H 97 05/17/18 01:01 65 173/81 H 05/17/18 00:45 97.9 F 67 20 186/74 H 96 Weight Admit Weight 145 lb 8 oz Weight 136 lb 14.4 oz I&O: 05/16/18 05/17/18 05/18/18 06:59 06:59 06:59 Intake Total 100 1100 Output Total 3050 750 Balance -2950 350 Result Diagrams: 05/14/18 10:48 05/15/18 04:47 Additional Labs: Accuchecks 05/17/18 05/17/18 05/17/18 11:41 04:33 03:31 POC Glucose 84 107 66 L 05/16/18 05/16/18 21:47 17:04 POC Glucose 112 H 76 Phys Exam - Physical Examination Neck: no JVD RLL rales, OW clear Cardiovascular: RRR, no significant murmur Gastrointestinal: soft, positive bowel sounds Musculoskeletal: no edema Dx/Plan (1) Volume overload Code(s): E87.70 - FLUID OVERLOAD, UNSPECIFIED Status: Acute Qualifiers: Hypervolemia type: other Qualified Code(s): E87.79 - Other fluid overload (2) PNA (pneumonia) Code(s): J18.9 - PNEUMONIA, UNSPECIFIED ORGANISM Status: Acute Qualifiers: Pneumonia type: due to unspecified organism Laterality: right Lung location: lower lobe of lung Qualified Code(s): J18.1 - Lobar pneumonia, unspecified organism Comment: probable pneumococcu (3) End stage chronic kidney disease Code(s): N18.6 - END STAGE RENAL DISEASE Status: Chronic (4) HTN (hypertension) Code(s): I10 - ESSENTIAL (PRIMARY) HYPERTENSION Status: Chronic Qualifiers: Hypertension type: essential hypertension Qualified Code(s): I10 - Essential (primary) hypertension (5) Diabetes mellitus type 2 Code(s): E11.9 - TYPE 2 DIABETES MELLITUS WITHOUT COMPLICATIONS Status: Chronic (6) HLD (hyperlipidemia) Code(s): E78.5 - HYPERLIPIDEMIA, UNSPECIFIED Status: Chronic Qualifiers: Hyperlipidemia type: pure hypercholesterolemia Qualified Code(s): E78.00 - Pure hypercholesterolemia, unspecified; E78.0 - Pure hypercholesterolemia - Plan cont iv antibx for 24 hrs -: cont routine HD -: cont accu/ ss -: cont asa, statin, amlodipine * .
[2018-05-17] MEDS: Carvedilol 25 MG TAB PO SCH (17:53)
[2018-05-17] MEDS: Atorvastatin Calcium 20 MG TAB PO SCH (20:53)
[2018-05-17] MEDS ORDERED: Carvedilol 6.25 MG TAB PO SCH (21:00)
[2018-05-18] MEDS: hydrALAZINE 20 MG/ML VIAL SLOW IVP PRN (05:46)
[2018-05-18] MEDS: Levothyroxine Sodium 125 MCG TAB PO SCH (05:46)
[2018-05-18] MEDS: Calcium Carbonate 500 MG ChewTAB PO SCH ×3 (08:22→17:04)
[2018-05-18] MEDS: Carvedilol 25 MG TAB PO SCH ×2 (08:23→17:04)
[2018-05-18] MEDS: Amlodipine 10 MG TAB PO SCH (08:23)
[2018-05-18] MEDS: Aspirin 81 mg Enteric Coated Tablet PO SCH (08:24)
[2018-05-18] MEDS: Gemfibrozil 600 MG TAB PO SCH ×2 (08:24→20:24)
[2018-05-18] MEDS: Furosemide 80 MG TAB PO SCH (08:24)
[2018-05-18] MEDS: Azithromycin 500 MG in Sodium Chloride 0.9% 250 ML 250 ML IVPB SCH (08:25)
[2018-05-18] MEDS: Insulin Glargine 21 UNITS in Pre-Filled Syringe 1 EACH SC SCH ×3 (08:25→20:52)
--- NOTE | 2018-05-18 08:27 | PDOC.PN ---
- Subjective Encounter Start Date: 05/18/18 Encounter Start Time: 08:25 Subjective: no fever,sob - Objective Resuscitation Status - Order Detail: 05/14/18 15:20 Resuscitation Status Routine Resuscitation Status: FULL: Full Resuscitation MAR Reviewed: Yes Vital Signs & Weight: Vital Signs (12 hours) Temp Pulse Resp BP BP Pulse Ox 05/18/18 07:15 98.0 F 65 16 174/78 H 96 05/18/18 05:46 65 05/18/18 04:54 98.5 F 65 16 186/77 H 92 L 05/17/18 20:50 98.5 F 58 L 16 152/69 H 94 L Weight Admit Weight 145 lb 8 oz Weight 136 lb 14.4 oz I&O: 05/17/18 05/18/18 05/19/18 06:59 06:59 06:59 Intake Total 1100 400 Output Total 750 400 Balance 350 0 Result Diagrams: 05/14/18 10:48 05/15/18 04:47 Additional Labs: Accuchecks 05/18/18 05/17/18 05/17/18 04:44 20:47 15:45 POC Glucose 133 H 159 H 146 H 05/17/18 11:41 POC Glucose 84 Phys Exam - Physical Examination Neck: no JVD clear Gastrointestinal: soft, positive bowel sounds Musculoskeletal: no edema Dx/Plan (1) Volume overload Code(s): E87.70 - FLUID OVERLOAD, UNSPECIFIED Status: Acute Qualifiers: Hypervolemia type: other Qualified Code(s): E87.79 - Other fluid overload (2) PNA (pneumonia) Code(s): J18.9 - PNEUMONIA, UNSPECIFIED ORGANISM Status: Acute Qualifiers: Pneumonia type: due to unspecified organism Laterality: right Lung location: lower lobe of lung Qualified Code(s): J18.1 - Lobar pneumonia, unspecified organism Comment: probable pneumococcu (3) End stage chronic kidney disease Code(s): N18.6 - END STAGE RENAL DISEASE Status: Chronic (4) HTN (hypertension) Code(s): I10 - ESSENTIAL (PRIMARY) HYPERTENSION Status: Chronic Qualifiers: Hypertension type: essential hypertension Qualified Code(s): I10 - Essential (primary) hypertension (5) Diabetes mellitus type 2 Code(s): E11.9 - TYPE 2 DIABETES MELLITUS WITHOUT COMPLICATIONS Status: Chronic (6) HLD (hyperlipidemia) Code(s): E78.5 - HYPERLIPIDEMIA, UNSPECIFIED Status: Chronic Qualifiers: Hyperlipidemia type: pure hypercholesterolemia Qualified Code(s): E78.00 - Pure hypercholesterolemia, unspecified; E78.0 - Pure hypercholesterolemia - Plan transition to po antibx in am -: cont routine HD -: add hydralazine to BP regimen -: possible DC in AM * .
[2018-05-18] MEDS: cefTRIAXone\\ROCEPHIN 1 GM in Sodium Chloride 0.9% 100 ML IVPB SCH (08:28)
--- NOTE | 2018-05-18 10:40 | PRG ---
DATE OF SERVICE: 05/18/2018 SUBJECTIVE: Patient was seen and examined at bedside and overnight events noted. Patient denies any shortness of breath or chest pain or palpitation. No history of nausea or vomiting or diarrhea or fever or chills or cramps. OBJECTIVE: GENERAL: This is a well-built male, in no apparent distress. VITAL SIGNS: Temperature 97.8. Pulse 65. Respiratory rate 16. Blood pressure 174/78. HEENT: Atraumatic, normocephalic. Oral mucosa is moist NECK: Supple. CARDIOVASCULAR: S1, S2 heard. Rate and rhythm regular. RESPIRATORY: Clear to auscultation. GASTROINTESTINAL: Abdomen is soft. MUSCULOSKELETAL: No tenderness. No edema. DERMATOLOGIC: No skin rash. NEUROLOGIC: Alert and awake and oriented X3. No focal neurologic deficits. Moving all the extremities. PSYCHIATRIC: Mood and affect normal. LABORATORY DATA: Not done today. ASSESSMENT AND PLAN: 1. End-stage renal disease. We will continue on hemodialysis. Blood pressure remains high. 2. Hypertension. Blood pressure remains high. I agree with adding hydralazine, continue on carvedilol and amlodipine at this point. We would hold LIZA inhibitor or ARB at this point, given his history of hyperkalemia despite being on dialysis and low potassium bath. 3. Edema, controlled. 4. Anemia. 5. Cardiorenal syndrome. 6. LVH. The patient needs aggressive blood pressure control. We would recommend blood pressure less than 140/90 majority of the times and we will follow. Limit salt intake and up titrate medication as needed. Agree with hydralazine for now. Monitor closely. Job ID: [id number]
[2018-05-18] MEDS: hydrALAZINE 25 MG TAB PO SCH ×3 (11:07→20:24)
[2018-05-18] MEDS: Atorvastatin Calcium 20 MG TAB PO SCH (20:24)
[2018-05-19] MEDS: Levothyroxine Sodium 125 MCG TAB PO SCH (05:23)
[2018-05-19 08:11] VITALS: TEMP 98
[2018-05-19] MEDS: Calcium Carbonate 500 MG ChewTAB PO SCH ×3 (08:24→16:45)
[2018-05-19] MEDS: Furosemide 80 MG TAB PO SCH (08:25)
[2018-05-19] MEDS: Aspirin 81 mg Enteric Coated Tablet PO SCH (08:25)
[2018-05-19] MEDS: Amlodipine 10 MG TAB PO SCH (08:25)
[2018-05-19] MEDS: Gemfibrozil 600 MG TAB PO SCH (08:25)
[2018-05-19] MEDS: hydrALAZINE 25 MG TAB PO SCH (08:26)
[2018-05-19] MEDS: Carvedilol 25 MG TAB PO SCH ×2 (08:26→16:51)
[2018-05-19] MEDS: Insulin Glargine 21 UNITS in Pre-Filled Syringe 1 EACH SC SCH (08:26)
[2018-05-19] MEDS ORDERED: Cefdinir 300 MG CAP PO SCH (09:00)
[2018-05-19] MEDS ORDERED: Heparin 1,000 UNITS/ML VIAL ONE (11:11)
--- NOTE | 2018-05-19 12:03 | PRG ---
DATE OF SERVICE: 05/19/2018 SUBJECTIVE: Patient was seen and examined at bedside and overnight events noted. Patient denies any shortness of breath or chest pain or palpitation. No history of nausea or vomiting or diarrhea or fever or chills or cramps. OBJECTIVE: GENERAL: This is a well-built male in no apparent distress. VITAL SIGNS: Temperature . Pulse 61. Respiratory rate 16. Blood pressure 147/69. HEENT: Atraumatic, normocephalic. Oral mucosa is moist NECK: Supple. CARDIOVASCULAR: S1, S2 heard. Rate and rhythm regular. RESPIRATORY: Clear to auscultation. GASTROINTESTINAL: Abdomen is soft. MUSCULOSKELETAL: No tenderness. No edema. DERMATOLOGIC: No skin rash. NEUROLOGIC: Alert and awake and oriented x3. No focal neurologic deficits. Moving all the extremities. PSYCHIATRIC: Mood and affect normal. LABORATORY DATA: Not done today. ASSESSMENT AND PLAN: 1. End-stage renal disease. We will continue on hemodialysis as tolerated. 2. Hypertension. Blood pressure is better, but still above the goal. We would attempt to keep it 140/90 or less. We will increase hydralazine to 50 mg p.o. t.i.d. 3. Edema, controlled. 4. Anemia. 5. Cardiorenal syndrome. 6. LVH. Blood pressure seems to be reasonable. We will increase hydralazine, and I think we can manage this as an outpatient and okay to discharge home from Nephrology standpoint. Will be monitored closely as outpatient dialysis goes on, we will follow. Thank you for the consult. We will follow. Job ID: [id number]
--- NOTE | 2018-05-19 12:29 | PDOC.PN ---
- Subjective Encounter Start Date: 05/19/18 Encounter Start Time: 10:40 -: old records requested/rev Patient seen and examined. No new complaints. No overnight events - Objective Resuscitation Status - Order Detail: 05/14/18 15:20 Resuscitation Status Routine Resuscitation Status: FULL: Full Resuscitation MAR Reviewed: Yes Vital Signs & Weight: Vital Signs (12 hours) Temp Pulse Resp BP BP Pulse Ox 05/19/18 12:07 132/62 05/19/18 08:09 98.0 F 61 16 147/69 H 97 05/19/18 05:00 98.3 F 59 L 17 160/63 H 96 Weight Admit Weight 145 lb 8 oz Weight 136 lb 14.4 oz I&O: 05/18/18 05/19/18 05/20/18 06:59 06:59 06:59 Intake Total 400 460 Output Total 400 550 Balance 0 -90 Result Diagrams: 05/14/18 10:48 05/15/18 04:47 Additional Labs: Accuchecks 05/19/18 05/19/18 05/18/18 12:08 05:09 20:40 POC Glucose 191 H 117 H 157 H 05/18/18 16:18 POC Glucose 187 H Phys Exam - Physical Examination Constitutional: NAD HEENT: PERRLA, moist MMs, sclera anicteric Neck: no JVD, supple Respiratory: no wheezing, no rales, no rhonchi Cardiovascular: RRR, no significant murmur, no rub Gastrointestinal: soft, non-tender, no distention, positive bowel sounds Musculoskeletal: no edema, pulses present Neurological: non-focal, normal sensation Lymphatic: no nodes Psychiatric: normal affect Skin: no rash, normal turgor Dx/Plan (1) PNA (pneumonia) Code(s): J18.9 - PNEUMONIA, UNSPECIFIED ORGANISM Status: Acute Qualifiers: Pneumonia type: due to unspecified organism Laterality: right Lung location: lower lobe of lung Qualified Code(s): J18.1 - Lobar pneumonia, unspecified organism Comment: probable pneumococcu (2) Volume overload Code(s): E87.70 - FLUID OVERLOAD, UNSPECIFIED Status: Acute Qualifiers: Hypervolemia type: other Qualified Code(s): E87.79 - Other fluid overload (3) Diabetes mellitus type 2 Code(s): E11.9 - TYPE 2 DIABETES MELLITUS WITHOUT COMPLICATIONS Status: Chronic (4) ESRD (end stage renal disease) on dialysis Code(s): N18.6 - END STAGE RENAL DISEASE; Z99.2 - DEPENDENCE ON RENAL DIALYSIS Status: Chronic (5) HLD (hyperlipidemia) Code(s): E78.5 - HYPERLIPIDEMIA, UNSPECIFIED Status: Chronic Qualifiers: Hyperlipidemia type: pure hypercholesterolemia Qualified Code(s): E78.00 - Pure hypercholesterolemia, unspecified; E78.0 - Pure hypercholesterolemia (6) HTN (hypertension) Code(s): I10 - ESSENTIAL (PRIMARY) HYPERTENSION Status: Chronic Qualifiers: Hypertension type: essential hypertension Qualified Code(s): I10 - Essential (primary) hypertension (7) Hypothyroidism Code(s): E03.9 - HYPOTHYROIDISM, UNSPECIFIED Status: Chronic - Plan cont current plan of care * medication reviewed as below * symptomatic treatment * see discharge summery. Review of Systems - Review of Systems ENT: negative: Ear Pain, Ear Discharge, Nose Pain, Nose Discharge, Nose Congestion, Mouth Pain, Mouth Swelling, Throat Pain, Throat Swelling, Other Respiratory: negative: Cough, Dry, Shortness of Breath, Hemoptysis, SOB with Excertion, Pleuritic Pain, Sputum, Wheezing Cardiovascular: negative: chest pain, palpitations, orthopnea, paroxysmal nocturnal dyspnea, edema, light headedness, other Gastrointestinal: negative: Nausea, Vomiting, Abdominal Pain, Diarrhea, Constipation, Melena, Hematochezia, Other Genitourinary: negative: Dysuria, Frequency, Incontinence, Hematuria, Retention , Other Musculoskeletal: negative: Neck Pain, Shoulder Pain, Arm Pain, Back Pain, Hand Pain, Leg Pain, Foot Pain, Other Skin: negative: Rash, Lesions, [place], Bruising, Other - Medications/Allergies Allergies/Adverse Reactions: Allergies Allergy/AdvReac Type Severity Reaction Status Date / Time No Known Allergies Allergy Verified 05/14/18 15:30 Medications: Current Medications Acetaminophen (Tylenol) 650 mg PO Q4H PRN PRN Reason: Headache/Fever/Mild Pain (1-3) A[facility]od[facility] [place] [facility] Admin: 05/19/18 08:25 Dose: 10 mg Aspirin (Ecotrin) [facility] [place] Last Admin: 05/19/18 08:25 Dose: 81 mg Atorvastatin Calcium (Lipitor) 20 mg PO [facility] Last Admin: 05/18/18 20:24 Dose: 20 mg Benzonatate (Tessalon) 100 mg PO TIDPRN PRN PRN Reason: Cough Last Admin: 05/14/18 21:07 Dose: 100 mg Calcium Carbonate (Tums) 1,000 mg PO TID-[facility] [place] Last Admin: 05/19/18 12:10 Dose: Not Given Carvedilol (Coreg) 25 mg PO BID-[facility] [place] Last Admin: 05/19/18 08:26 Dose: 25 mg Cefdinir (Omnicef) 300 mg PO DAILY [facility] Last Admin: 05/19/18 08:23 Dose: 300 mg Dextrose/Water (Dextrose 50%) 25 gm SLOW IVP PRN PRN PRN Reason: Hypoglycemia Last Admin: 05/16/18 04:40 Dose: 25 gm Furosemide (Lasix) 80 mg PO DAILY [facility] Last Admin: 05/19/18 08:25 Dose: 80 mg Gemfibrozil (Lopid) 600 mg PO BID [facility] Last Admin: 05/19/18 08:25 Dose: 600 mg Glucagon (Glucagon) 1 mg IM PRN PRN PRN Reason: Hypoglycemia Hydralazine HCl (Apresoline) 10 mg SLOW IVP Q4H PRN PRN Reason: SBP > 180 and HR < 70 Last Admin: 05/18/18 05:46 Dose: 10 mg Hydralazine HCl (Apresoline) 50 mg PO TID [facility] Dextrose/Water (D5w) 1,000 mls @ 0 mls/hr IV .Q0M PRN PRN Reason: Hypoglycemia Insulin Glargine 21 units/ (Miscellaneous Medication) 0.21 mls @ 0 mls/hr SC BID [facility] Last Admin: 05/19/18 08:26 Dose: Not Given Insulin Human Lispro (Humalog) 0 units SC .MILD SLIDING SCALE PRN PRN Reason: Mild Correctional Scale Last Admin: 05/16/18 12:16 Dose: 4 unit Levothyroxine Sodium (Synthroid) 125 mcg PO 0600 [facility] Last Admin: 05/19/18 05:23 Dose: 125 mcg Sodium Chloride (Flush - Normal Saline) 10 ml IVF Q12HR [facility] Last Admin: 05/19/18 08:28 Dose: Not Given Sodium Chloride (Flush - Normal Saline) 10 ml IVF PRN PRN PRN Reason: Saline Flush Tramadol HCl (Ultram) 50 mg PO QIDPRN PRN PRN Reason: Pain>4
--- NOTE | 2018-05-19 12:50 | DIS ---
DATE OF ADMISSION: 05/16/2018 DATE OF DISCHARGE: 05/19/2018 PRIMARY CARE PHYSICIAN: [facility] Call Admission. DISCHARGE DISPOSITION: Home. PRIMARY DISCHARGE DIAGNOSES: 1. Volume overload, resolved. 2. Pneumonia, community-acquired, streptococcal, suspected. 3. [id number] diastolic congestive heart failure, stage C. SECONDARY DISCHARGE DIAGNOSES: 1. Hypothyroidism. 2. Hypertension. 3. Dyslipidemia. 4. End-stage renal disease. 5. Diabetes type 2. PRIMARY PROCEDURE/OPERATION: Maintenance hemodialysis. RADIOLOGICAL INVESTIGATION: 1. Chest x-ray. 2. Echocardiography showed diastolic dysfunction. SIGNIFICANT LABORATORY DATA: WBC 9.9, hemoglobin 11.7, platelet 381. Sodium 137, creatinine 5.03, calcium 9.8. DISCHARGE MEDICATIONS: 1. Amlodipine 10 mg daily. 2. Aspirin 81 mg daily. 3. Tums 1000 mg p.o. t.i.d. 4. Lasix 80 mg p.o. daily. 5. Lopid 600 mg b.i.d. 6. Levemir 26 units subcu b.i.d. 7. Synthroid 125 mcg p.o. daily. 8. Zocor 40 mg p.o. at bedtime. 9. Tramadol 50 mg q.6 hourly p.r.n. 10. Coreg 25 mg b.i.d. 11. Hydralazine 50 mg t.i.d. 12. Imdur 60 mg daily. 13. Omnicef 300 mg p.o. daily. CONTRAINDICATION: None. CODE STATUS: Full code. INPATIENT CONSULTANTS: Dr. Joyner was following while in hospital. TEST RESULTS PENDING ON DISCHARGE: None. ALLERGIES: NO KNOWN DRUG ALLERGIES. DISCHARGE PLAN: Posthospital, the patient will follow up with Dr. Russ on June 08, 2018. The patient will follow up with primary care physician on May 23, 2018. HOSPITAL COURSE: A 58-year-old male, who was admitted by Dr. Salmon, please see his H and P for further detail. The patient was admitted for increasing shortness of breath. His admitting diagnosis was volume overload. There was suspicion for pneumonia, which was treated with Rocephin and azithromycin while in the hospital, and on discharge changed to Omnicef. While in the hospital, the patient required hemodialysis and that is why nephrology was following. His volume overload status was related with [id number] diastolic congestive heart failure exacerbation. He had demand ischemia, because of fluid overload status. With dialysis, the patient's condition significantly improved. The patient had hyperkalemia, which was also improved with dialysis. Upon discharge during this admission, we increased Coreg to 25 mg b.i.d. We added hydralazine 50 mg t.i.d. and Imdur 60 mg daily. Rest of medication will be continued as per previous. PHYSICAL EXAMINATION: GENERAL: The patient is seen and examined at bedside today. VITAL SIGNS: Currently temperature 98.0, pulse 61, respiratory rate 16, saturation 97%, blood pressure 147/69, weight 136 pounds. GENERAL: The patient is currently alert, awake, no obvious acute distress. HEENT: Head; normocephalic, atraumatic. Eyes; pupils round, reactive to light. Extraocular muscle intact. LUNGS: Clear to auscultation without any rhonchi. CARDIAC: S1, S2. Regular without any murmur. ABDOMEN: Soft and benign. EXTREMITIES: No edema. NEUROLOGIC: Nonfocal examination. REVIEW OF SYSTEMS: All review of systems reviewed with him and negative. Job ID: [id number]
[2018-05-19] MEDS ORDERED: hydrALAZINE 25 MG TAB PO SCH (15:00)
[2018-05-19 17:19] VITALS: BP 151/70
--- NOTE | 2018-05-20 20:32 | EKG ---
Test Reason : Blood Pressure : / mmHG Vent. Rate : 075 BPM Atrial Rate : 075 BPM P-R Int : 164 ms QRS Dur : 096 ms QT Int : 418 ms P-R-T Axes : 047 027 025 degrees QTc Int : 466 ms Normal sinus rhythm Possible Left atrial enlargement Cannot rule out Anterior infarct , age undetermined Abnormal ECG Confirmed by TRINA BAER, BUDDY ([id number]), mapping editor FRANCK LYNNE ([id number]) on 05/20/2018 8:32:37 PM Referred By: Confirmed By:BUDDY MENA MD
== END 2018-05-19 17:42 | disposition home or self-care (01) | DRG 291 ==
LOC: ERS 10:00 → ERHOLD 12:20 → 2SW 14:54 → OBSVTOIN 05-16 08:15 → T4-A 05-16 20:53
PROVIDERS: ADMIT Internal Medicine; ATTEND Internal Medicine
PROC: 5A1D70Z Performance of Urinary Filtration, Intermittent, Less than 6 Hours Per Day (ICD-10-PCS; principal; 2018-05-19)
DX: I13.2 Hypertensive heart and chronic kidney disease with heart failure and with stage 5 chronic kidney disease, or end stage renal disease (principal); N18.6 End stage renal disease; I50.33 Acute on chronic diastolic (congestive) heart failure; J15.4 Pneumonia due to other streptococci; I24.8 Other forms of acute ischemic heart disease; E78.5 Hyperlipidemia, unspecified; E87.5 Hyperkalemia; E11.22 Type 2 diabetes mellitus with diabetic chronic kidney disease; E03.9 Hypothyroidism, unspecified; D64.9 Anemia, unspecified; Z89.511 Acquired absence of right leg below knee; Z89.422 Acquired absence of other left toe(s); Z79.82 Long term (current) use of aspirin; Z79.899 Other long term (current) drug therapy; Z99.2 Dependence on renal dialysis
CPT/HCPCS: 36415; 36416; 71045; 80048; 80053; 82550; 82553; 83880; 84484; 85025; 86706; 87040; 87340; 90935; 93005; 93306; G0257; J0360; J0456; J0696; J1644; J1825; J1940; J7050